=== PATIENT | male | born 1965 | race Caucasian/White ===

== ENCOUNTER 2021-07-05 14:20 | Outpatient (REF) | payer OTHER, SELFPAY ==
[2021-07-05 15:20] LABS: Appearance Urine CLEAR; Color Urine YELLOW; Glucose Urine UA NEG (NEG); Leukocyte Esterase Urine NEG (NEG); Nitrite Urine NEG (NEG); PH 5.5 (5.0-8.0); Specific Gravity - Urine 1.025 (1.005-1.025); UACC Culture Trigger NO; Urine Blood TRACE (NEG); Urine Ketones NEG (NEG); Urine Protein NEG (NEG-TRACE)
[2021-07-05 15:31] LABS: INTERNATIONAL NORM RATIO 3.1 (0.9-1.1); Prothrombin Time 36.6 SEC (9.9-13.0)
[2021-07-05 15:35] LABS: RBC Urine 0 /HPF (0); Squamous Epithelial Cell Urine TRACE /LPF; WBC Urine 0 /HPF (0-4)
== END 2021-07-05 14:21 | disposition home or self-care (01) ==
LOC: HO.LAB 14:20
PROVIDERS: PCP Internal Medicine; Visit Provider Internal Medicine
DX: Z79.01 Long term (current) use of anticoagulants (principal)
CPT/HCPCS: 36415; 81001; 85610

== ENCOUNTER → 2021-07-19 10:22 | Outpatient (BNVA) | payer OTHER, SELFPAY | PROVIDERS: PCP Internal Medicine; Visit Provider Internal Medicine | DX: Z95.2 Presence of prosthetic heart valve (principal); Z51.81 Encounter for therapeutic drug level monitoring; Z79.01 Long term (current) use of anticoagulants | CPT/HCPCS: 85610; 99202 ==

== ENCOUNTER → 2021-07-26 13:21 | Outpatient (BNVA) | payer OTHER, SELFPAY | PROVIDERS: PCP Internal Medicine; Visit Provider Internal Medicine | DX: Z95.2 Presence of prosthetic heart valve (principal); Z79.01 Long term (current) use of anticoagulants; Z51.81 Encounter for therapeutic drug level monitoring | CPT/HCPCS: 85610; 99211 ==

== ENCOUNTER → 2021-08-23 13:20 | Outpatient (BNVA) | payer OTHER, SELFPAY | PROVIDERS: PCP Internal Medicine; Visit Provider Internal Medicine | DX: Z95.2 Presence of prosthetic heart valve (principal); Z79.01 Long term (current) use of anticoagulants; Z51.81 Encounter for therapeutic drug level monitoring | CPT/HCPCS: 85610; 99211 ==

== ENCOUNTER → 2021-09-18 16:07 | Outpatient (BNVA) | payer OTHER, SELFPAY | PROVIDERS: PCP Internal Medicine; Visit Provider Internal Medicine | DX: Z95.2 Presence of prosthetic heart valve (principal); Z79.01 Long term (current) use of anticoagulants; Z51.81 Encounter for therapeutic drug level monitoring | CPT/HCPCS: 85610; 99211 ==

== ENCOUNTER → 2021-10-25 08:43 | Outpatient (BNVA) | payer OTHER, SELFPAY | PROVIDERS: PCP Internal Medicine; Visit Provider Internal Medicine | DX: Z95.2 Presence of prosthetic heart valve (principal); Z51.81 Encounter for therapeutic drug level monitoring; Z79.01 Long term (current) use of anticoagulants | CPT/HCPCS: 85610; 99211 ==

== ENCOUNTER → 2021-11-27 13:32 | Outpatient (BNVA) | payer OTHER, SELFPAY | PROVIDERS: PCP Internal Medicine; Visit Provider Internal Medicine | DX: Z95.2 Presence of prosthetic heart valve (principal); Z51.81 Encounter for therapeutic drug level monitoring; Z79.01 Long term (current) use of anticoagulants | CPT/HCPCS: 85610; 99211 ==

== ENCOUNTER → 2021-12-10 11:34 | Outpatient (BNVA) | payer OTHER, SELFPAY | PROVIDERS: PCP Internal Medicine; Visit Provider Internal Medicine | DX: Z95.2 Presence of prosthetic heart valve (principal); Z51.81 Encounter for therapeutic drug level monitoring; Z79.01 Long term (current) use of anticoagulants | CPT/HCPCS: 85610; 99211 ==

== ENCOUNTER → 2021-12-31 13:35 | Outpatient (BNVA) | payer OTHER, SELFPAY | PROVIDERS: PCP Internal Medicine; Visit Provider Internal Medicine | DX: Z95.2 Presence of prosthetic heart valve (principal); Z51.81 Encounter for therapeutic drug level monitoring; Z79.01 Long term (current) use of anticoagulants | CPT/HCPCS: 85610; 99211 ==

== ENCOUNTER → 2022-01-07 11:13 | Outpatient (BNVA) | payer OTHER, SELFPAY | PROVIDERS: PCP Internal Medicine; Visit Provider Internal Medicine | DX: Z95.2 Presence of prosthetic heart valve (principal); Z51.81 Encounter for therapeutic drug level monitoring; Z79.01 Long term (current) use of anticoagulants | CPT/HCPCS: 85610; 99211 ==

== ENCOUNTER 2022-01-16 06:30 | Outpatient (REF) | payer OTHER, SELFPAY ==
--- NOTE | ~2022-01-16 | XR_ITS ---
EXAMINATION: XR CHEST CLINICAL INFORMATION: Symptoms and signs involving the circulatory system. COMPARISON: None TECHNIQUE: 2 views of the chest were obtained. FINDINGS: No significant abnormality is noted involving the heart, lungs, mediastinum, bony thorax or soft tissues. Multilevel sternotomy wires are intact. XR/XR chest 2V IMPRESSION: No acute cardiopulmonary process.
== END 2022-01-16 06:31 | disposition home or self-care (01) ==
LOC: HO.XRAY 06:30
PROVIDERS: PCP Internal Medicine; Visit Provider Internal Medicine
DX: R09.89 Other specified symptoms and signs involving the circulatory and respiratory systems (principal)
CPT/HCPCS: 71046

== ENCOUNTER → 2022-02-01 14:09 | Outpatient (BNVA) | payer OTHER, SELFPAY | PROVIDERS: PCP Internal Medicine; Visit Provider Internal Medicine | DX: Z95.2 Presence of prosthetic heart valve (principal); Z79.01 Long term (current) use of anticoagulants; Z51.81 Encounter for therapeutic drug level monitoring | CPT/HCPCS: 85610; 99211 ==

== ENCOUNTER → 2022-03-04 08:44 | Outpatient (BNVA) | payer OTHER, SELFPAY | PROVIDERS: PCP Internal Medicine; Visit Provider Internal Medicine | DX: Z95.2 Presence of prosthetic heart valve (principal); Z51.81 Encounter for therapeutic drug level monitoring; Z79.01 Long term (current) use of anticoagulants | CPT/HCPCS: 85610; 99211 ==

== ENCOUNTER → 2022-04-01 14:18 | Outpatient (BNVA) | payer OTHER, SELFPAY | PROVIDERS: PCP Internal Medicine; Visit Provider Internal Medicine | DX: Z95.2 Presence of prosthetic heart valve (principal); Z79.01 Long term (current) use of anticoagulants; Z51.81 Encounter for therapeutic drug level monitoring | CPT/HCPCS: 85610; 99211 ==

== ENCOUNTER 2022-04-20 07:28 | Outpatient (REF) | payer OTHER, SELFPAY ==
[2022-04-20 07:50] LABS: MANUAL DIFF FLAG NO
[2022-04-20 08:34] LABS: Basophils Absolute Auto 0.1 X10*3/uL (0.0-0.2); Basophils Percent Auto 1.1 % (0-2); Eosinophils Absolute Auto 0.1 X10*3/uL (0.0-0.4); Eosinophils Percent Auto 1.1 % (0-4); Hematocrit 43.5 % (42.0-52.0); Hemoglobin 14.9 g/dl (14.0-18.0); Imm Gran Abs Auto 0.01 X10*3/uL (0.00-0.03); Imm Gran Pct Auto 0.2 % (0.0-0.4); Lymphocytes Absolute Auto 1.4 X10*3/uL (1.2-4.9); Lymphocytes Percent Auto 31.4 % (20-40); Mean Corpuscular HGB Conc 34.3 g/dl (31.0-36.0); Mean Corpuscular Hemoglobin 29.6 pg (27.0-33.0); Mean Corpuscular Volume 86.5 fL (80.0-98.0); Mean Platelet Volume 10.9 fL (9.4-12.4); Monocytes Absolute Auto 0.4 X10*3/uL (0.1-1.2); Monocytes Percent Auto 9.2 % (2-11); Neutrophils Absolute Auto 2.6 x10*3/uL (2.0-8.3); Platelet Count 181 X10*3/uL (160-400); Red Blood Count 5.03 X10*6/uL (4.60-5.80); Red Cell Distribution Width 13.1 % (11.0-16.0); White Blood Count 4.6 X10*3/uL (4.8-10.8)
[2022-04-20 08:37] LABS: Appearance Urine Clear; Color Urine Yellow; Glucose Urine UA Negative (Negative); Leukocyte Esterase Urine Negative (Negative); Nitrite Urine Negative (Negative); PH 5.5 (5.0-9.0); Specific Gravity - Urine 1.025 (1.005-1.025); Urine Blood Negative (Negative); Urine Ketones Negative (Negative); Urine Protein Negative (Neg-Trace)
[2022-04-20 09:11] LABS: Alanine Aminotransferase 24 U/L (0-40); Albumin Level 4.2 g/dL (3.5-5.0); Alkaline Phosphatase 66 U/L (39-117); Anion Gap 12 (12-20); Aspartate Amino Transferase 23 U/L (5-37); Bilirubin Total 0.8 mg/dL (0.0-1.0); Blood Urea Nitrogen 19 mg/dL (9-16); Calcium 9.6 mg/dL (8.4-10.2); Carbon Dioxide 27 mmol/L (22-29); Chloride 106 mmol/L (96-108); Cholesterol 231 mg/dL; Estimated Glomerular Filt Rate > 60; Glucose Fasting 97 mg/dL (60-99); HDL Cholesterol 39 mg/dL; LDL Cholesterol Calculated 170 mg/dl; Potassium 4.5 mmol/L (3.3-5.1); Sodium 140 mmol/L (135-145); Total Protein 6.8 g/dL (6.5-8.0); Triglycerides 111 mg/dL
[2022-04-20 09:31] LABS: Prostate Specific Antigen 0.64 ng/mL (<0.05-4.0); TSH reflex Free T4 1.56 uIU/mL (0.32-4.0); Vitamin D 25-OH Total 34.4 ng/mL (>30)
== END 2022-04-20 07:29 | disposition home or self-care (01) ==
LOC: HO.LAB 07:28
PROVIDERS: Visit Provider Internal Medicine
DX: Z00.00 Encounter for general adult medical examination without abnormal findings (principal); Z12.5 Encounter for screening for malignant neoplasm of prostate; R30.0 Dysuria; E55.9 Vitamin D deficiency, unspecified; N40.0 Benign prostatic hyperplasia without lower urinary tract symptoms; I42.9 Cardiomyopathy, unspecified
CPT/HCPCS: 36415; 80053; 80061; 81003; 82306; 84153; 84443; 85025

== ENCOUNTER → 2022-04-30 13:06 | Outpatient (BNVA) | payer OTHER, SELFPAY | PROVIDERS: PCP Internal Medicine; Visit Provider Internal Medicine | DX: Z95.2 Presence of prosthetic heart valve (principal); Z51.81 Encounter for therapeutic drug level monitoring; Z79.01 Long term (current) use of anticoagulants | CPT/HCPCS: 85610; 99211 ==

== ENCOUNTER → 2022-07-01 13:46 | Outpatient (BNVA) | payer OTHER, SELFPAY | PROVIDERS: PCP Internal Medicine; Visit Provider Internal Medicine | DX: Z95.2 Presence of prosthetic heart valve (principal); Z51.81 Encounter for therapeutic drug level monitoring; Z79.01 Long term (current) use of anticoagulants | CPT/HCPCS: 85610; 99211 ==

== ENCOUNTER → 2022-07-17 13:03 | Outpatient (BNVA) | payer OTHER, SELFPAY | PROVIDERS: PCP Internal Medicine; Visit Provider Internal Medicine | DX: Z95.2 Presence of prosthetic heart valve (principal); Z51.81 Encounter for therapeutic drug level monitoring; Z79.01 Long term (current) use of anticoagulants | CPT/HCPCS: 85610; 99211 ==

== ENCOUNTER → 2022-08-13 15:31 | Outpatient (BNVA) | payer OTHER, SELFPAY | PROVIDERS: PCP Internal Medicine; Visit Provider Internal Medicine | DX: Z51.81 Encounter for therapeutic drug level monitoring (principal); Z95.2 Presence of prosthetic heart valve; Z79.01 Long term (current) use of anticoagulants | CPT/HCPCS: 85610; 99211 ==

== ENCOUNTER → 2022-08-16 13:26 | Outpatient (BNVA) | payer OTHER, SELFPAY | PROVIDERS: PCP Internal Medicine; Visit Provider Internal Medicine | DX: Z51.81 Encounter for therapeutic drug level monitoring (principal); Z79.01 Long term (current) use of anticoagulants; Z95.2 Presence of prosthetic heart valve | CPT/HCPCS: 85610; 99211 ==

== ENCOUNTER → 2022-09-02 14:59 | Outpatient (BNVA) | payer OTHER, SELFPAY | PROVIDERS: PCP Internal Medicine; Visit Provider Internal Medicine | DX: Z95.2 Presence of prosthetic heart valve (principal); Z51.81 Encounter for therapeutic drug level monitoring; Z79.01 Long term (current) use of anticoagulants | CPT/HCPCS: 85610; 99211 ==

== ENCOUNTER → 2022-10-02 13:04 | Outpatient (BNVA) | payer OTHER, SELFPAY | PROVIDERS: PCP Internal Medicine; Visit Provider Internal Medicine | DX: Z95.2 Presence of prosthetic heart valve (principal); Z51.81 Encounter for therapeutic drug level monitoring; Z79.01 Long term (current) use of anticoagulants | CPT/HCPCS: 85610; 99211 ==

== ENCOUNTER → 2022-10-16 15:37 | Outpatient (BNVA) | payer OTHER, SELFPAY | PROVIDERS: PCP Internal Medicine; Visit Provider Internal Medicine | DX: Z51.81 Encounter for therapeutic drug level monitoring (principal); Z79.01 Long term (current) use of anticoagulants; Z95.2 Presence of prosthetic heart valve | CPT/HCPCS: 85610; 99211 ==

== ENCOUNTER 2022-11-13 13:04 | Outpatient (AMB) | payer OTHER, SELFPAY ==
--- NOTE | 2022-11-13 13:11 | MHC.OFFVISCO ---
Intake Intake Visit Reasons: Anticoagulation Allergies No Known Drug Allergies Allergy (Unknown, Verified 11/13/22 13:05) Unknown Medication List - Last Reconciled 11/13/22 by Yenny Cardenas RN amoxicillin 2,000 mg PO ONCE bisacodyl (Laxative (bisacodyl)) 20 mg PO ONCE xsyvsddmlp-aujefgmadmqmq-uclp 50-325-40 mg 1 cap PO Q6H PRN cholecalciferol (vitamin D3) 50 mcg PO DAILY lisinopril 2.5 mg PO DAILY metoprolol succinate ER 50 mg PO DAILY metronidazole 0.75% appl topical BID peg 3350-electrolytes 236-22.74-6.74 -5.86 gram (GaviLyte-G) 4,000 mL PO DIRECTED sumatriptan succinate 50 mg PO Q2-4H PRN warfarin 5 mg See Protocol PO DAILY Nursing Note INR: 3.2 in therapeutic range Medications and supplements reviewed No changes in health, diet, medications, or supplements, Denies any signs and symptoms of bleeding or bruising or clotting. 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 Illness/Depression: No Coding Level of Care Code Est Patient Level 1 Diagnoses Current use of anticoagulant therapy Z79.01 Assessment & Plan Assessment & Plan (1) Current use of anticoagulant therapy: Code(s): Z79.01 - halfway (current) use of anticoagulants Category: Medical
[2022-11-13 13:12] LABS: Prothrombin Time Whole Bld POC 38.9 sec (11.1-13.5); ~PT, ~INR - Anti Coag Clinic 3.2 (0.9-1.1)
== END 2022-11-13 13:20 | disposition home or self-care (01) ==
LOC: HO.ACS 13:04
PROVIDERS: PCP Internal Medicine; Visit Provider Internal Medicine
DX: Z79.01 Long term (current) use of anticoagulants (principal)

== ENCOUNTER → 2022-11-13 13:04 | Outpatient (BNVA) | payer OTHER, SELFPAY | PROVIDERS: PCP Internal Medicine; Visit Provider Internal Medicine | DX: Z51.81 Encounter for therapeutic drug level monitoring (principal); Z79.01 Long term (current) use of anticoagulants; Z95.2 Presence of prosthetic heart valve | CPT/HCPCS: 85610; 99211 ==

== ENCOUNTER 2022-12-26 13:25 | Outpatient (AMB) | payer OTHER, SELFPAY ==
[2022-12-26 13:55] LABS: Prothrombin Time Whole Bld POC 29.9 sec (11.1-13.5); ~PT, ~INR - Anti Coag Clinic 2.5 (0.9-1.1)
--- NOTE | 2022-12-26 13:59 | MHC.OFFVISCO ---
Intake Intake Visit Reasons: Anticoagulation Allergies No Known Drug Allergies Allergy (Unknown, Verified 12/26/22 13:46) Unknown Medication List - Last Reconciled 12/26/22 by Virginia Man RN amoxicillin 2,000 mg PO ONCE fhvupekdnm-mnhyjggezqlxk-hesi 50-325-40 mg 1 cap PO Q6H PRN cholecalciferol (vitamin D3) 50 mcg PO DAILY lisinopril 2.5 mg PO DAILY metoprolol succinate ER 50 mg PO DAILY metronidazole 0.75% appl topical BID sumatriptan succinate 50 mg PO Q2-4H PRN warfarin 5 mg See Protocol PO DAILY Nursing Note Amb to [facility] feeling well, sts was ill last week, fever, congested, negative for covid, feeling better now, residual congestion Medications and supplements reviewed No other changes in health, diet, medications, or supplements Denies any unusual signs and symptoms of bruising, bleeding Denies any new Chest pain, SOB, or clotting INR: 2.5 just in therapeutic range (2.5-3.5) Nutritional guidance given: balance greens and reds in diet Dose: continue usual dosing;5mg daily F/U INR: 4 weeks Patient verbalizes understanding of instructions given with accurate read back/ teach back of dosing Anti-Coag Initial Assessment Social Hx Patient Tobacco Use Status: Never used Tobacco alcohol intake: current Alcohol intake frequency: does not drink Cardiovascular Hx: Cardiomyopathy (mild per pt) and Other (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
== END 2022-12-26 15:03 | disposition home or self-care (01) ==
LOC: HO.ACS 13:25
PROVIDERS: PCP Internal Medicine; Visit Provider Internal Medicine
DX: Z79.01 Long term (current) use of anticoagulants (principal)

== ENCOUNTER → 2022-12-26 13:25 | Outpatient (BNVA) | payer OTHER, SELFPAY | PROVIDERS: PCP Internal Medicine; Visit Provider Internal Medicine | DX: Z95.2 Presence of prosthetic heart valve (principal); Z51.81 Encounter for therapeutic drug level monitoring; Z79.01 Long term (current) use of anticoagulants | CPT/HCPCS: 85610; 99211 ==

== ENCOUNTER 2023-01-23 13:06 | Outpatient (AMB) | payer OTHER, SELFPAY ==
[2023-01-23 13:13] LABS: ~PT, ~INR - Anti Coag Clinic 3.4 (0.9-1.1)
--- NOTE | 2023-01-23 13:18 | MHC.OFFVISCO ---
Intake Intake Visit Reasons: Anticoagulation Allergies No Known Drug Allergies Allergy (Unknown, Verified 01/23/23 13:06) Unknown Medication List - Last Reconciled 01/23/23 by Yenny Cardenas RN amoxicillin 2,000 mg PO ONCE kjzlxzenaa-pjcypcoikmhtv-eibh 50-325-40 mg 1 cap PO Q6H PRN cholecalciferol (vitamin D3) 50 mcg PO DAILY lisinopril 2.5 mg PO DAILY metoprolol succinate ER 50 mg PO DAILY metronidazole 0.75% appl topical BID sumatriptan succinate 50 mg PO Q2-4H PRN warfarin 5 mg See Protocol PO DAILY Nursing Note INR: 3.4 in therapeutic range Medications and supplements reviewed No changes in health, diet, medications, or supplements, Denies any signs and symptoms of bleeding or bruising or clotting. 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 Illness/Depression: No Coding Level of Care Code Est Patient Level 1 Diagnoses Current use of anticoagulant therapy Z79.01 Assessment & Plan Assessment & Plan (1) Current use of anticoagulant therapy: Code(s): Z79.01 - alf (current) use of anticoagulants Category: Medical
== END 2023-01-23 13:21 | disposition home or self-care (01) ==
LOC: HO.ACS 13:06
PROVIDERS: PCP Internal Medicine; Visit Provider Internal Medicine
DX: Z79.01 Long term (current) use of anticoagulants (principal)

== ENCOUNTER → 2023-01-23 13:06 | Outpatient (BNVA) | payer OTHER, SELFPAY | PROVIDERS: PCP Internal Medicine; Visit Provider Internal Medicine | DX: Z95.2 Presence of prosthetic heart valve (principal); Z51.81 Encounter for therapeutic drug level monitoring; Z79.01 Long term (current) use of anticoagulants | CPT/HCPCS: 85610; 99211 ==

== ENCOUNTER 2023-02-10 07:02 | Outpatient (REF) | payer OTHER, SELFPAY ==
[2023-02-10 07:44] LABS: Alanine Aminotransferase 19 U/L (0-40); Albumin Level 4.3 g/dL (3.5-5.0); Alkaline Phosphatase 57 U/L (39-117); Anion Gap 14 (12-20); Aspartate Amino Transferase 22 U/L (5-37); Bilirubin Total 0.7 mg/dL (0.0-1.0); Blood Urea Nitrogen 17 mg/dL (9-16); Calcium 9.3 mg/dL (8.4-10.2); Carbon Dioxide 22 mmol/L (22-29); Chloride 108 mmol/L (96-108); Cholesterol 218 mg/dL (<200); Estimated Glomerular Filt Rate > 60; Glucose Fasting 108 mg/dL (60-99); HDL Cholesterol 41 mg/dL (>40); LDL Cholesterol Calculated 158 mg/dL (<100); Sodium 140 mmol/L (135-145); Triglycerides 98 mg/dL (<150)
== END 2023-02-10 07:03 | disposition home or self-care (01) ==
LOC: HO.LAB 07:02
PROVIDERS: PCP Internal Medicine; Visit Provider Internal Medicine
DX: E78.00 Pure hypercholesterolemia, unspecified (principal)
CPT/HCPCS: 36415; 80053; 80061

== ENCOUNTER 2023-02-18 12:59 | Outpatient (AMB) | payer OTHER, SELFPAY ==
--- NOTE | 2023-02-18 13:09 | MHC.OFFVISCO ---
Intake Intake Visit Reasons: Anticoagulation Allergies No Known Drug Allergies Allergy (Unknown, Verified 02/18/23 13:04) Unknown Medication List - Last Reconciled 02/18/23 by Lenora Rae RN amoxicillin 2,000 mg PO ONCE gdonmybdnc-insqmlhevtdej-wotp 50-325-40 mg 1 cap PO Q6H PRN cholecalciferol (vitamin D3) 50 mcg PO DAILY lisinopril 2.5 mg PO DAILY metoprolol succinate ER 50 mg PO DAILY metronidazole 0.75% appl topical BID sumatriptan succinate 50 mg PO Q2-4H PRN warfarin 5 mg See Protocol PO DAILY Nursing Note INR: 2.5- in therapeutic range of 2.5-3.5 Medications and supplements reviewed- no changes No changes in health, diet, medications, or supplements, Denies any signs and symptoms of bleeding or bruising or clotting. 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 Illness/Depression: No Coding Level of Care Code Est Patient Level 1 Diagnoses Current use of anticoagulant therapy Z79.01 Assessment & Plan Assessment & Plan (1) Current use of anticoagulant therapy: Code(s): Z79.01 - group home (current) use of anticoagulants Category: Medical
[2023-02-18 13:10] LABS: ~PT, ~INR - Anti Coag Clinic 2.5 (0.9-1.1)
== END 2023-02-18 13:14 | disposition home or self-care (01) ==
LOC: HO.ACS 12:59
PROVIDERS: PCP Internal Medicine; Visit Provider Internal Medicine
DX: Z79.01 Long term (current) use of anticoagulants (principal)

== ENCOUNTER → 2023-02-18 12:59 | Outpatient (BNVA) | payer OTHER, SELFPAY | PROVIDERS: PCP Internal Medicine; Visit Provider Internal Medicine | DX: Z95.2 Presence of prosthetic heart valve (principal); Z51.81 Encounter for therapeutic drug level monitoring; Z79.01 Long term (current) use of anticoagulants | CPT/HCPCS: 85610; 99211 ==

== ENCOUNTER 2023-03-18 13:02 | Outpatient (AMB) | payer OTHER, SELFPAY ==
--- NOTE | 2023-03-18 13:09 | MHC.OFFVISCO ---
Intake Intake Visit Reasons: Anticoagulation Allergies No Known Drug Allergies Allergy (Unknown, Verified 03/18/23 13:15) Unknown Medication List - Last Reconciled 03/18/23 by Lenora Rae RN amoxicillin 2,000 mg PO ONCE awqmevmmwv-vpunhtsvxlbdy-gqsh 50-325-40 mg 1 cap PO Q6H PRN cholecalciferol (vitamin D3) 50 mcg PO DAILY lisinopril 2.5 mg PO DAILY metoprolol succinate ER 50 mg PO DAILY metronidazole 0.75% appl topical BID sumatriptan succinate 50 mg PO Q2-4H PRN warfarin 5 mg See Protocol PO DAILY Nursing Note INR: 2.5- in therapeutic range of 2.5- 3.5 Medications and supplements reviewed- no changes No changes in health, diet, medications, or supplements, Denies any signs and symptoms of bleeding or bruising or clotting. 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 Illness/Depression: No Coding Level of Care Code Est Patient Level 1 Diagnoses Current use of anticoagulant therapy Z79.01 Assessment & Plan Assessment & Plan (1) Current use of anticoagulant therapy: Code(s): Z79.01 - group home (current) use of anticoagulants Category: Medical
[2023-03-18 13:10] LABS: Prothrombin Time Whole Bld POC 29.4 sec (11.1-13.5); ~PT, ~INR - Anti Coag Clinic 2.5 (0.9-1.1)
== END 2023-03-18 13:16 | disposition home or self-care (01) ==
LOC: HO.ACS 13:02
PROVIDERS: PCP Internal Medicine; Visit Provider Internal Medicine
DX: Z79.01 Long term (current) use of anticoagulants (principal)

== ENCOUNTER → 2023-03-18 13:02 | Outpatient (BNVA) | payer OTHER, SELFPAY | PROVIDERS: PCP Internal Medicine; Visit Provider Internal Medicine | DX: Z95.2 Presence of prosthetic heart valve (principal); Z51.81 Encounter for therapeutic drug level monitoring; Z79.01 Long term (current) use of anticoagulants | CPT/HCPCS: 85610; 99211 ==

== ENCOUNTER 2023-04-04 13:03 | Outpatient (AMB) | payer OTHER, SELFPAY ==
--- NOTE | 2023-04-04 13:26 | MHC.OFFVISCO ---
Intake Intake Visit Reasons: Anticoagulation Allergies No Known Drug Allergies Allergy (Unknown, Verified 04/04/23 13:17) Unknown Medication List - Last Reconciled 04/04/23 by Lenora Rae RN amoxicillin 2,000 mg PO ONCE cdgdfwccjd-sdtjarzdeguuw-xlwg 50-325-40 mg 1 cap PO Q6H PRN cholecalciferol (vitamin D3) 50 mcg PO DAILY lisinopril 2.5 mg PO DAILY metoprolol succinate ER 50 mg PO DAILY metronidazole 0.75% appl topical BID sumatriptan succinate 50 mg PO Q2-4H PRN warfarin 5 mg See Protocol PO DAILY Nursing Note INR: 2.7- in therapeutic range of 2.5-3.5 Medications and supplements reviewed- no changes No changes in health, diet, medications, or supplements, Denies any signs and symptoms of bleeding or bruising or clotting. 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 Illness/Depression: No Coding Level of Care Code Est Patient Level 1 Diagnoses Current use of anticoagulant therapy Z79.01 Results AMB INR Fingerstick AMB INR Fingerstick 2.7 Last Edit by Lenora Rae RN on 04/04/23 13:28 Assessment & Plan Assessment & Plan (1) Current use of anticoagulant therapy: Code(s): Z79.01 - [facility] (current) use of anticoagulants Category: Medical
[2023-04-04 13:28] LABS: Prothrombin Time Whole Bld POC 32.9 sec (11.1-13.5); ~PT, ~INR - Anti Coag Clinic 2.7 (0.9-1.1)
== END 2023-04-04 13:46 | disposition home or self-care (01) ==
LOC: HO.ACS 13:03
PROVIDERS: PCP Internal Medicine; Visit Provider Internal Medicine
DX: Z79.01 Long term (current) use of anticoagulants (principal)

== ENCOUNTER → 2023-04-04 13:03 | Outpatient (BNVA) | payer OTHER, SELFPAY | PROVIDERS: PCP Internal Medicine; Visit Provider Internal Medicine | DX: Z95.2 Presence of prosthetic heart valve (principal); Z51.81 Encounter for therapeutic drug level monitoring; Z79.01 Long term (current) use of anticoagulants | CPT/HCPCS: 85610; 99211 ==

== ENCOUNTER 2023-04-23 14:46 | Outpatient (AMB) | payer BC, SELFPAY ==
--- NOTE | 2023-04-23 15:03 | MHC.OFFVISCO ---
Intake Intake Visit Reasons: Anticoagulation Allergies No Known Drug Allergies Allergy (Unknown, Verified 04/23/23 14:58) Unknown Medication List - Last Reconciled 04/23/23 by Lenora Rae RN amoxicillin 2,000 mg PO ONCE cdmwdgszts-gcnjiwpbmlmja-bonw 50-325-40 mg 1 cap PO Q6H PRN cholecalciferol (vitamin D3) 50 mcg PO DAILY metoprolol succinate ER 50 mg PO DAILY metronidazole 0.75% appl topical BID sumatriptan succinate 50 mg PO Q2-4H PRN warfarin 5 mg See Protocol PO DAILY Nursing Note INR: 3.0- in therapeutic range of 2.5-3.5 Medications and supplements reviewed- lisinopril d/c, pt now taking valsartan- no interaction with warfarin per [facility] No changes in health, diet, medications, or supplements, Denies any signs and symptoms of bleeding or bruising or clotting. 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
[2023-04-23 15:04] LABS: Prothrombin Time Whole Bld POC 35.7 sec (11.1-13.5)
== END 2023-04-23 15:27 | disposition home or self-care (01) ==
LOC: HO.ACS 14:46
PROVIDERS: PCP Internal Medicine; Visit Provider Internal Medicine
DX: Z79.01 Long term (current) use of anticoagulants (principal)

== ENCOUNTER → 2023-04-23 14:46 | Outpatient (BNVA) | payer BC, SELFPAY | PROVIDERS: PCP Internal Medicine; Visit Provider Internal Medicine | DX: Z95.2 Presence of prosthetic heart valve (principal); Z51.81 Encounter for therapeutic drug level monitoring; Z79.01 Long term (current) use of anticoagulants | CPT/HCPCS: 85610; 99211 ==

== ENCOUNTER 2023-04-23 15:14 | Outpatient (AMB) | payer BC, SELFPAY ==
[2023-04-23 15:17] VITALS: BP 116/82; PULSE 79; O2SAT 97; BMI 24.8
--- NOTE | 2023-04-23 15:17 | A.OFFPC_ITS ---
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: No Accompanied by: Self / Same As Patient Allergies No Known Drug Allergies Allergy (Unknown, Verified 04/23/23 16:56) Unknown Medication List - Last Reconciled 04/23/23 by Feliberto Garcia MD amoxicillin 2,000 mg PO ONCE qppisoxluk-mdytnjmlcnqai-euxi 50-325-40 mg 1 cap PO Q6H PRN cholecalciferol (vitamin D3) 50 mcg PO DAILY metoprolol succinate ER 50 mg PO DAILY metronidazole 0.75% appl topical BID sumatriptan succinate 50 mg PO Q2-4H PRN valsartan 40 mg PO DAILY warfarin 5 mg See Protocol PO DAILY Tobacco use date assessed: 04/23/23 Dental Screening Dental Screen Date: 04/23/23 Did you have a dental visit in the last 12 months?: Yes Did you have a dental problem in the last 6 months where you did not have access to dental care?: No Was dental information given to patient?: Patient has dentist HPI pe HPI Details Patient comes in today for his annual physical examination States that he feels okay He denies any headaches or dizziness Denies any chest pains, no SOB No nausea/vomiting, no abdominal pain No change in bowel habits noted He denies any acute urinary symptoms He had some follow up labs last done back in January 2023 Had his repeat colonoscopy done on 08/07/[address] Lisa monet at [facility] - was recommended to have his next colonoscopy done in 7 years [facility] Medical History Pure hypercholesterolemia History of scarlet fever Cardiomyopathy Vitamin D deficiency Migraine Surgical History Hx of prosthetic aortic valve replacement (~01/10/98) Family History Mother No problems noted. Father No problems noted. 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 1. Little interest or pleasure in doing things: not at all 2. Feeling down, depressed, or hopeless: not at all 3. Trouble falling or staying asleep, or sleeping too much: not at all 4. Feeling tired or having little energy: not at all 5. Poor appetite or overeating: not at all 6. Feeling bad about yourself - or that you are a failure or have let yourself or your family down: not at all 7. Trouble concentrating on things, such as reading the newspaper or watching television: not at all 8. Moving or speaking so slowly that other people could have noticed. Or the opposite - being so fidgety or restless that you have been moving around a lot more than usual: not at all 9. Thoughts that you would be better off or of hurting yourself in some way: not at all Total score: 0 Depression Screening Interpretation: Negative Depression Screening Done: Yes 28576 - PHQ-9 Billing: Yes Source: Developed by Drs. Christpoh Cohn, Ashlyn Higgins, Jeremy Hernandez and colleagues, with an educational gail from Outcome Referrals. Thrive Questionnaire Date Thrive assessed: 04/23/23 I am a: Patient What is your living situation today?: I have a steady place to live Within the past 12 months, did the food you bought not last and you didn't have the money to get more?: Never true Within the past 12 months, did you worry whether your food would run out before you got money to buy more?: Never true Do you have trouble paying for medicines?: No Do you have trouble getting transportation to medical appointments?: No Do you have trouble paying your heating and electricity bill?: No Do you have trouble taking care of your child, family member or friend?: No Do you have trouble with day-to-day activities such as bathing, preparing meals, shopping, managing finances, etc.?: No Are you currently unemployed and looking for a job?: No Are you interested in more education?: No Currently or been in a relationship where the following occur: no concerns reported AUDIT C Alcohol Use Questionnaire (AUDIT-C) 1. How often do you have a drink containing alcohol?: Never 2. How many drinks containing alcohol do you have on a typical day when you are drinking?: 1 or 2 (0) 3. How often do you have six or more drinks on one occasion?: Never Total Score: 0 Score Reviewed/Action Taken: Yes THADDEUS-7 AMB Questionnaire THADDEUS-7 Date THADDEUS - 7 assessed: 04/23/23 Feeling nervous, anxious, or on edge: 0 = Not at all Not being able to stop or control worryin = Not at all Worrying too much about different things: 0 = Not at all Trouble relaxin = Not at all Being so restless that it is hard to sit still: 0 = Not at all Becoming easily annoyed or irritable: 0 = Not at all Feeling afraid as if something awful might happen: 0 = Not at all Total THADDEUS-7 score (0-4 normal; 5-9 mild; 10-14 moderate; 15-21 severe): 0 Source: Developed by Drs. Christoph Cohn, Ashlyn Higgins, Jeremy Hernandez and colleagues, with an educational gail from Outcome Referrals. Review of Systems Const Denies chills, Denies fatigue, Denies fever(s), Denies headache(s), Denies malaise and Denies weakness Eyes Denies blurry vision, Denies change in vision, Denies irritation and Denies itchy eyes ENT Denies dysphagia, Denies dizziness, Denies otalgia, Denies headache(s), Denies nasal congestion, Denies neck pain, Denies odynophagia and Denies sore throat Card Denies chest pain, Denies rapid heart rate, Denies irregular heart rhythm, Denies palpitations and Denies dyspnea Resp Denies chest congestion, Denies cough, Denies dyspnea and Denies wheezing GI Denies abdominal pain, Denies bloating, Denies constipation, Denies dysphagia, Denies heartburn, Denies diarrhea, Denies nausea, Denies odynophagia and Denies vomiting Denies hematuria, Denies difficulty urinating, Denies dysuria, Denies urinary frequency and Denies urinary urgency Musc Denies back pain, Denies arthralgias, Denies joint swelling, Denies muscle weakness and Denies neck pain Skin/Breast Denies change in pigmentation, Denies lesions, Denies rash and Denies unusual bruising Neuro Denies dizziness, Denies headache(s), Denies paresthesias and Denies weakness Endo Denies fatigue and Denies palpitations Aller/Immun Denies itchy eyes and Denies wheezing Physical exam (Primary Care) Vital Signs: Last Vital Signs Pulse 79 04/23/23 15:17 BP 116/82 04/23/23 15:17 Pulse Ox 97 04/23/23 15:17 Oxygen Delivery Method Room Air 04/23/23 15:17 BMI result Body Mass Index 24.8 Tobacco/Smoking Status: Tobacco use Status Tobacco use date assessed 04/23/23 04/23/23 15:18 Patient Tobacco Use Status Never used Tobacco 04/23/23 15:18 e-Cigarette/Vaping Use Never Used 04/23/23 15:18 PHQ-9: PHQ-9 Score PHQ-9: Total score 0 04/23/23 17:09 Depression Screening Interpretation: Negative Thrive Assessment: Date of Thrive Assessment Date Thrive assessed 04/23/23 04/23/23 15:18 Currently or been in a relationship where the following occur: no concerns repor rogelio Const General: no acute distress, alert and awake Orientation/consciousness: patient oriented x3 HENMT Head: Yes normocephalic and Yes atraumatic Ears: external ears normal, TM's normal bilaterally and EAC's normal General nose exam: No nasal discharge present Face and sinus: Yes normal facial exam and Yes sinuses nontender Teeth and gingiva: dentition normal Throat: Yes posterior oropharynx normal and Yes tonsils normal (no TP congestion) Eyes Eyelids: Yes eyelids normal Conjunctivae: conjunctivae normal Pupils: Equal, round and reactive pupils present EOM: EOMs intact bilaterally Neck Neck: Yes no lymphadenopathy and Yes supple Thyroid: Thyroid normal Resp Auscultation: clear to auscultation bilaterally, no rales and no wheezes Cardio Rate: regular rate Rhythm: regular rhythm Heart sounds: Clicking heart sound present ((+) metallic click over the 2nd heart sound) and no murmurs GI Palpation (GI): Soft to palpation, nontender and No hepatosplenomegaly present Auscultation: normal bowel sounds General: Yes no CVA tenderness Back/Spine/Pelvis Back: no CVA tenderness Thoracic/Lumbar Spine: thoracic and lumbar spine normal to inspection Skin Lesions: no lesions Rashes: no rashes Neuro General: patient oriented x3, moves all extremities, no focal motor deficits and CN's II-XI intact bilaterally Cranial nerves: Yes Equal, round and reactive pupils present Cognition (Neuro): normal cognition Gait exam (Neuro): Normal gait present Extrem General: Yes no clubbing, cyanosis or edema Results AMB INR Fingerstick AMB INR Fingerstick 3.0 Last Edit by Lenora Rae RN on 04/23/23 15:04 Results Reviewed Results Reviewed: Laboratory Tests 02/10/23 07:07 Sodium 140 Potassium 4.0 Creatinine 0.97 Estimated GFR > 60 Fasting Glucose 108 H Calcium 9.3 AST 22 ALT 19 Triglycerides 98 Cholesterol 218 H LDL Cholesterol, Calc 158 H HDL Cholesterol 41 Assessment and Plan Assessment & Plan (1) Annual physical exam: Code(s): Z00.00 - Encounter for general adult medical examination without abnormal findings Plan: Results of his labs done back in January 2023 reviewed and discussed with patient Will have him recheck his labs in 1 month Patient is up-to-date with his cancer screening(s) - is due for repeat colonoscopy in 2029 (2) Cardiomyopathy: Comment: sees cardiology (Dr. Muñoz) Code(s): I42.9 - Cardiomyopathy, unspecified Qualifiers: Cardiomyopathy type: unspecified Qualified Code(s): I42.9 - Cardiomyopathy, unspecified Plan: Patient has been asymptomatic from a cardiac standpoint Continue Lisinopril 2.5 mg QD and Metoprolol ER 50 mg QD Follow up with cardiology (Dr. Candelario Muñoz) as scheduled (3) Hx of prosthetic aortic valve replacement: Onset Date: ~01/10/[address]: [facility] valve - Dr. Grant - 1997 Code(s): Z95.2 - Presence of prosthetic heart valve Plan: Continue Coumadin 5 mg QD for lifelong anticoagulation - follow up with the coumadin clinic as scheduled for PT/INR monitoring Will need endocarditis prophylaxis with Abx prior to any invasive procedures (4) Pure hypercholesterolemia: Code(s): E78.00 - Pure hypercholesterolemia, unspecified Plan: Reinforced low cholesterol diet Patient is advised that his cholesterol numbers were still elevated on his labs done back in January 2023 although they have improved slightly from April 2022 Will have patient recheck his fasting lipids and labs in 1 month for follow up; is advised that if his numbers are still high, then we would recommend he start taking cholesterol-lowering medications but will leave that up to 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 Joe Carranza) Code(s): G43.909 - Migraine, unspecified, not intractable, without status migrainosus Qualifiers: Intractability: not intractable Migraine type: unspecified Status migrainosus presence: without status migrainosus Qualified Code(s): G43.909 - Migraine, unspecified, not intractable, without status migrainosus Plan: Stable Continue Fioricet 50-325-40 mg PRN and Sumatriptan 50 mg PRN as instructed Follow up with neurology (Dr. Joe Carranza) as scheduled (6) Vitamin D deficiency: Code(s): E55.9 - Vitamin D deficiency, unspecified Plan: Corrected - continue Vitamin D3 2000 units QD Plan Follow up in 6 months Orders: Orders Prostate Specific Antigen 1 Month N40.0 - Benign prostatic hyperplasia without lower urinary tract symptoms, Z00.00 - Encounter for general adult medical examination without abnormal findings Complete Blood Count Auto Diff 1 Month Z00.00 - Encounter for general adult medical examination without abnormal findings, I42.9 - Cardiomyopathy, unspecified Comprehensive [place]. Panel Fast 1 Month E78.00 - Pure hypercholesterolemia, unspecified, Z00.00 - Encounter for general adult medical examination without abnormal findings, I42.9 - Cardiomyopathy, unspecified Lipid Panel 1 Month E78.00 - Pure hypercholesterolemia, unspecified, Z00.00 - Encounter for general adult medical examination without abnormal findings, I42.9 - Cardiomyopathy, unspecified TSH reflex Free T4 1 Month E78.00 - Pure hypercholesterolemia, unspecified, Z00.00 - Encounter for general adult medical examination without abnormal findings, I42.9 - Cardiomyopathy, unspecified UA CC w/rflx Micro + Cult 1 Month R30.0 - Dysuria, Z00.00 - Encounter for general adult medical examination without abnormal findings Vitamin D 25-OH Total 1 Month E55.9 - Vitamin D deficiency, unspecified, Z00.00 - Encounter for general adult medical examination without abnormal findings Hemoglobin A1c 1 Month Z00.00 - Encounter for general adult medical examination without abnormal findings, R73.01 - Impaired fasting glucose B Type Natriuretic Peptide 1 Month Z00.00 - Encounter for general adult medical examination without abnormal findings, I42.9 - Cardiomyopathy, unspecified Coding Level of Care Code Est Pt Prev Care 40-64y(56433) Diagnoses Annual physical exam Z00.00 Cardiomyopathy, unspecified type I42.9 Cardiomyopathy type: unspecified Hx of prosthetic aortic valve replacement Z95.2 Pure hypercholesterolemia E78.00 Migraine without status migrainosus, not intractable, unspecified migraine type G43.909 Intractability: not intractable Migraine type: unspecified Status migrainosus presence: without status migrainosus Vitamin D deficiency E55.9
== END 2023-04-23 17:27 | disposition home or self-care (01) ==
PROVIDERS: PCP Internal Medicine; Visit Provider Internal Medicine
DX: Z00.00 Encounter for general adult medical examination without abnormal findings (principal); I42.9 Cardiomyopathy, unspecified; Z95.2 Presence of prosthetic heart valve; E78.00 Pure hypercholesterolemia, unspecified; G43.909 Migraine, unspecified, not intractable, without status migrainosus; E55.9 Vitamin D deficiency, unspecified
CPT/HCPCS: 99396

== ENCOUNTER 2023-05-20 13:06 | Outpatient (AMB) | payer BC, SELFPAY ==
--- NOTE | 2023-05-20 13:15 | MHC.OFFVISCO ---
Intake Intake Visit Reasons: Anticoagulation Allergies No Known Drug Allergies Allergy (Unknown, Verified 05/20/23 13:07) Unknown Medication List - Last Reconciled 05/20/23 by Virginia Smallwood RN amoxicillin 2,000 mg PO ONCE nypratumto-yvrbuczwzyktw-jezp 50-325-40 mg 1 cap PO Q6H PRN cholecalciferol (vitamin D3) 50 mcg PO DAILY metoprolol succinate ER 50 mg PO DAILY metronidazole 0.75% appl topical BID sumatriptan succinate 50 mg PO Q2-4H PRN valsartan 40 mg PO DAILY warfarin 5 mg See Protocol PO DAILY Nursing Note INR: 3.3 in therapeutic range OF 2.5-3.5 Medications and supplements reviewed No changes in health, diet, medications, or supplements, Denies any signs and symptoms of bleeding or bruising or clotting. Bleeding, bruising, clotting discussed Nutritional guidance given Dose: Continue usual dose of 5mg daily F/U INR: 4 weeks Patient verbalizes understanding of instructions given Anti-Coag Initial Assessment Social Hx Patient Tobacco Use Status: Never used Tobacco alcohol intake: current Alcohol intake frequency: does not drink Cardiovascular Hx: Cardiomyopathy (mild per pt) and Other (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 Illness/Depression: No Coding Level of Care Code Est Patient Level 1 Diagnoses Current use of anticoagulant therapy Z79.01 Results AMB INR Fingerstick AMB INR Fingerstick 3.3 Last Edit by Virginia Smallwood RN on 05/20/23 13:14 INTERFACE DELAY Assessment & Plan Assessment & Plan (1) Current use of anticoagulant therapy: Code(s): Z79.01 - manager terminal (current) use of anticoagulants Category: Medical
[2023-05-20 13:18] LABS: Prothrombin Time Whole Bld POC 39.7 sec (11.1-13.5); ~PT, ~INR - Anti Coag Clinic 3.3 (0.9-1.1)
== END 2023-05-20 13:20 | disposition home or self-care (01) ==
LOC: HO.ACS 13:06
PROVIDERS: PCP Internal Medicine; Visit Provider Internal Medicine
DX: Z79.01 Long term (current) use of anticoagulants (principal)

== ENCOUNTER → 2023-05-20 13:06 | Outpatient (BNVA) | payer BC, SELFPAY | PROVIDERS: PCP Internal Medicine; Visit Provider Internal Medicine | DX: Z95.2 Presence of prosthetic heart valve (principal); Z51.81 Encounter for therapeutic drug level monitoring; Z79.01 Long term (current) use of anticoagulants | CPT/HCPCS: 85610; 99211 ==

== ENCOUNTER 2023-06-17 13:01 | Outpatient (AMB) | payer BC, SELFPAY ==
[2023-06-17 13:08] LABS: Prothrombin Time Whole Bld POC 36.4 sec (11.1-13.5)
--- NOTE | 2023-06-17 13:11 | MHC.OFFVISCO ---
Intake Intake Visit Reasons: Anticoagulation Allergies No Known Drug Allergies Allergy (Unknown, Verified 06/17/23 13:03) Unknown Medication List - Last Reconciled 06/17/23 by Virginia Smallwood RN amoxicillin 2,000 mg PO ONCE whknporlhd-ajvvzxnhbosie-ozrt 50-325-40 mg 1 cap PO Q6H PRN cholecalciferol (vitamin D3) 50 mcg PO DAILY metoprolol succinate ER 50 mg PO DAILY metronidazole 0.75% appl topical BID sumatriptan succinate 50 mg PO Q2-4H PRN valsartan 40 mg PO DAILY warfarin 5 mg See Protocol PO DAILY Nursing Note Amb to [facility] feeling well INR: 3.0 in therapeutic range (2.5-3.0) Medications and supplements reviewed No changes in health, diet, medications, or supplements, sts he had a lot of greens the past couple weeks but tried to balance with reds Denies any signs and symptoms of bleeding or bruising or clotting. Bleeding, bruising, clotting discussed Nutritional guidance given , balance greens and reds in diet and be consistent Dose: continue usual 5mg daily F/U INR: 1 month Patient verbalizes understanding of instructions given Anti-Coag Initial Assessment Social Hx Patient Tobacco Use Status: Never used Tobacco alcohol intake: current Alcohol intake frequency: does not drink Cardiovascular Hx: Cardiomyopathy (mild per pt) and Other (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 Illness/Depression: No Coding Level of Care Code Est Patient Level 1 Diagnoses Current use of anticoagulant therapy Z79.01 Time Spent (min) 15 Assessment & Plan Assessment & Plan (1) Current use of anticoagulant therapy: Code(s): Z79.01 - custodial (current) use of anticoagulants Category: Medical
== END 2023-06-17 13:15 | disposition home or self-care (01) ==
LOC: HO.ACS 13:01
PROVIDERS: PCP Internal Medicine; Visit Provider Internal Medicine
DX: Z79.01 Long term (current) use of anticoagulants (principal)

== ENCOUNTER → 2023-06-17 13:01 | Outpatient (BNVA) | payer BC, SELFPAY | PROVIDERS: PCP Internal Medicine; Visit Provider Internal Medicine | DX: Z95.2 Presence of prosthetic heart valve (principal); Z51.81 Encounter for therapeutic drug level monitoring; Z79.01 Long term (current) use of anticoagulants | CPT/HCPCS: 85610; 99211 ==

== ENCOUNTER 2023-07-22 13:01 | Outpatient (AMB) | payer BC, SELFPAY ==
--- NOTE | 2023-07-22 13:08 | MHC.OFFVISCO ---
Intake Intake Visit Reasons: Anticoagulation Allergies No Known Drug Allergies Allergy (Unknown, Verified 07/22/23 13:04) Unknown Medication List - Last Reconciled 07/22/23 by Lenora Rae RN amoxicillin 2,000 mg PO ONCE xxfrxeavil-dhlsjpgfwxbjq-wike 50-325-40 mg 1 cap PO Q6H PRN cholecalciferol (vitamin D3) 50 mcg PO DAILY metoprolol succinate ER 50 mg PO DAILY metronidazole 0.75% appl topical BID sumatriptan succinate 50 mg PO Q2-4H PRN valsartan 40 mg PO DAILY warfarin 5 mg See Protocol PO DAILY Nursing Note INR: 3.0- in therapeutic range of 2.5-3.5 Medications and supplements reviewed No changes in health, diet, medications, or supplements, Denies any signs and symptoms of bleeding or bruising or clotting. 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 Illness/Depression: No Coding Level of Care Code Est Patient Level 1 Diagnoses Current use of anticoagulant therapy Z79.01 Results AMB INR Fingerstick AMB INR Fingerstick 3.0 Last Edit by Lenora Rae RN on 07/22/23 13:09 Assessment & Plan Assessment & Plan (1) Current use of anticoagulant therapy: Code(s): Z79.01 - terminal supervisor (current) use of anticoagulants Category: Medical
[2023-07-22 13:10] LABS: Prothrombin Time Whole Bld POC 35.8 sec (11.1-13.5)
== END 2023-07-22 13:17 | disposition home or self-care (01) ==
LOC: HO.ACS 13:01
PROVIDERS: PCP Internal Medicine; Visit Provider Internal Medicine
DX: Z79.01 Long term (current) use of anticoagulants (principal)

== ENCOUNTER → 2023-07-22 13:01 | Outpatient (BNVA) | payer BC, SELFPAY | PROVIDERS: PCP Internal Medicine; Visit Provider Internal Medicine | DX: Z95.2 Presence of prosthetic heart valve (principal); Z51.81 Encounter for therapeutic drug level monitoring; Z79.01 Long term (current) use of anticoagulants | CPT/HCPCS: 85610; 99211 ==

== ENCOUNTER 2023-08-19 12:59 | Outpatient (AMB) | payer BC, SELFPAY ==
[2023-08-19 13:07] LABS: Prothrombin Time Whole Bld POC 44.5 sec (11.1-13.5); ~PT, ~INR - Anti Coag Clinic 3.7 (0.9-1.1)
--- NOTE | 2023-08-19 13:17 | MHC.OFFVISCO ---
Intake Intake Visit Reasons: Anticoagulation Allergies No Known Drug Allergies Allergy (Unknown, Verified 08/19/23 13:02) Unknown Medication List - Last Reconciled 08/19/23 by Virginia Smallwood RN amoxicillin 2,000 mg PO ONCE cahjvvttrb-qhiowocymnwzv-rbqq 50-325-40 mg 1 cap PO Q6H PRN cholecalciferol (vitamin D3) 50 mcg PO DAILY metoprolol succinate ER 50 mg PO DAILY metronidazole 0.75% appl topical BID sumatriptan succinate 50 mg PO Q2-4H PRN valsartan 40 mg PO DAILY warfarin 5 mg See Protocol PO DAILY Nursing Note INR 3.7?? out of therapeutic range of 2.5-3.5 Medications and supplements reviewed: no changes Patient status: well Medications or supplements: no change Diet: usual diet but did eat out recently and unaware of anything that could have raised the INR Denies any signs and symptoms of bleeding or clotting or unusual bruising Bleeding, bruising, clotting discussed Nutritional guidance given: Have a serving of greens today or tomorrow Dose: decrease today to 2.5mg (5mg) then resume usual dose of 5 mg daily F/U INR Date : 2 weeks?? Patient verbalizing understanding of instructions given. 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 Illness/Depression: No Coding Level of Care Code Est Patient Level 1 Diagnoses Current use of anticoagulant therapy Z79.01 Results AMB INR Fingerstick AMB INR Fingerstick 3.7 Last Edit by Virginia Smallwood RN on 08/19/23 13:12 interface delay Assessment & Plan Assessment & Plan (1) Current use of anticoagulant therapy: Code(s): Z79.01 - prison (current) use of anticoagulants Category: Medical
== END 2023-08-19 13:20 | disposition home or self-care (01) ==
LOC: HO.ACS 12:59
PROVIDERS: PCP Internal Medicine; Visit Provider Internal Medicine
DX: Z79.01 Long term (current) use of anticoagulants (principal)

== ENCOUNTER → 2023-08-19 12:59 | Outpatient (BNVA) | payer BC, SELFPAY | PROVIDERS: PCP Internal Medicine; Visit Provider Internal Medicine | DX: Z95.2 Presence of prosthetic heart valve (principal); Z51.81 Encounter for therapeutic drug level monitoring; Z79.01 Long term (current) use of anticoagulants | CPT/HCPCS: 85610; 99211 ==

== ENCOUNTER 2023-09-02 13:17 | Outpatient (AMB) | payer BC, SELFPAY ==
[2023-09-02 13:23] LABS: Prothrombin Time Whole Bld POC 43.1 sec (11.1-13.5); ~PT, ~INR - Anti Coag Clinic 3.6 (0.9-1.1)
--- NOTE | 2023-09-02 13:30 | MHC.OFFVISCO ---
Intake Intake Visit Reasons: Anticoagulation Allergies No Known Drug Allergies Allergy (Unknown, Verified 09/02/23 13:18) Unknown Medication List - Last Reconciled 09/02/23 by Virginia Man RN amoxicillin 2,000 mg PO ONCE mykdakzoiv-ueexoxloswyei-hbxx 50-325-40 mg 1 cap PO Q6H PRN cholecalciferol (vitamin D3) 50 mcg PO DAILY metoprolol succinate ER 50 mg PO DAILY metronidazole 0.75% appl topical BID sumatriptan succinate 50 mg PO Q2-4H PRN valsartan 40 mg PO DAILY warfarin 5 mg See Protocol PO DAILY Nursing Note Amb to ACS feeling well Medications and supplements reviewed No changes in health, diet, medications, or supplements, Denies any signs and symptoms of bleeding, bruising, or clotting.Denies any nosebleeds the last couple weeks INR 3.6 above therapeutic range (2.5-3.5) discussion with pt and will keep same dosing 5mg daily and add an extra green to diet F/U INR: 3 weeks as he will be in [place] in 2 weeks- sts he will watch diet while away Patient verbalizes understanding of instructions given Anti-Coag Initial Assessment Social Hx Patient Tobacco Use Status: Never used Tobacco alcohol intake: current Alcohol intake frequency: does not drink Cardiovascular Hx: Cardiomyopathy (mild per pt) and Other (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 Illness/Depression: No Questionnaires HAS-BLED Does the patient had uncontrolled Hypertension?: No Does the patient have renal disease?: No Does the patient have liver disease?: No Does the patient have a history of stroke?: No Has the patient had major bleeding or predisposition to bleeding?: No Does the patient have labile INRs?: No Is the patient over 65 years of age?: No Is the patient on medications that gives them a predisposition to bleeding?: Yes Does the patient use alcohol?: No HAS-BLED Score: 1 CHADSVASC Age: <65 Gender: Male Does the patient have a history of CHF?: No Does the patient have a history of Hypertension?: No Does the patient have a history of Stroke/TIA/Thromboembolism?: No Does the patient have a history of Vascular Disease (prior MT, PAD or aortic plaque)?: Yes Does the patient have a history of Diabetes?: No CHADS VACS Score: 1 Robbie Prediction Score Rsk VTE Active Cancer: No Previous VTE, excluding superficial vein thrombosis: No Reduced mobility: No Already known Thrombophilic Condition: Yes With-in last month Trauma and/or Surgery: No Elderly 70 year or older: No Heart and/or Respiratory Failure: No Acute Myocardial infarction and/or Ischemic Stroke: No Acute Infection and/or Rheumatologic Disorder: No Obesity (BMI 30 or greater): No Ongoing Hormonal Treatment: No Score: 3 Robbie Score less than 4; Low Risk of VTE Robbie Score 4 or greater; High Risk of VTE Coding Level of Care Code Est Patient Level 1 Diagnoses Current use of anticoagulant therapy Z79.01 Time Spent (min) 15 Assessment & Plan Assessment & Plan (1) Current use of anticoagulant therapy: Code(s): Z79.01 - alf (current) use of anticoagulants Category: Medical
== END 2023-09-02 13:32 | disposition home or self-care (01) ==
LOC: HO.ACS 13:17
PROVIDERS: PCP Internal Medicine; Visit Provider Internal Medicine
DX: Z79.01 Long term (current) use of anticoagulants (principal)

== ENCOUNTER → 2023-09-02 13:17 | Outpatient (BNVA) | payer BC, SELFPAY | PROVIDERS: PCP Internal Medicine; Visit Provider Internal Medicine | DX: Z95.2 Presence of prosthetic heart valve (principal); Z51.81 Encounter for therapeutic drug level monitoring; Z79.01 Long term (current) use of anticoagulants | CPT/HCPCS: 85610; 99211 ==

== ENCOUNTER 2023-09-23 12:57 | Outpatient (AMB) | payer BC, SELFPAY ==
[2023-09-23 13:03] LABS: Prothrombin Time Whole Bld POC 43.5 sec (11.1-13.5); ~PT, ~INR - Anti Coag Clinic 3.6 (0.9-1.1)
--- NOTE | 2023-09-23 13:08 | MHC.OFFVISCO ---
Intake Intake Visit Reasons: Anticoagulation Allergies No Known Drug Allergies Allergy (Unknown, Verified 09/23/23 12:58) Unknown Medication List - Last Reconciled 09/23/23 by Virginia Man RN amoxicillin 2,000 mg PO ONCE ppbgpadkxo-lbfkngonmmpxk-hjjg 50-325-40 mg 1 cap PO Q6H PRN cholecalciferol (vitamin D3) 50 mcg PO DAILY metoprolol succinate ER 50 mg PO DAILY metronidazole 0.75% appl topical BID sumatriptan succinate 50 mg PO Q2-4H PRN valsartan 40 mg PO DAILY warfarin 5 mg See Protocol PO DAILY Nursing Note AMb to ACS feeling well Medications and supplements reviewed No changes in health, diet, medications, or supplements, Denies any signs and symptoms of bleeding, bruising, or clotting. INR 3.6 just above therapeutic range (2.5-3.5) just returned from car trip to [facility] he did increase his greens before and after the trip sts he has been eating a lot of craisins Dose- continue same dosing 5mg daily Nutritional guidance given- decrease craisins and add a cooked green to diet (mostly eats raw greens, salads) F/U INR: 3 weeks Patient verbalizes understanding of instructions given Anti-Coag Initial Assessment Social Hx Patient Tobacco Use Status: Never used Tobacco alcohol intake: current Alcohol intake frequency: does not drink Cardiovascular Hx: Cardiomyopathy (mild per pt) and Other (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
== END 2023-09-23 13:18 | disposition home or self-care (01) ==
LOC: HO.ACS 12:57
PROVIDERS: PCP Internal Medicine; Visit Provider Internal Medicine
DX: Z79.01 Long term (current) use of anticoagulants (principal)

== ENCOUNTER → 2023-09-23 12:57 | Outpatient (BNVA) | payer BC, SELFPAY | PROVIDERS: PCP Internal Medicine; Visit Provider Internal Medicine | DX: Z95.2 Presence of prosthetic heart valve (principal); Z51.81 Encounter for therapeutic drug level monitoring; Z79.01 Long term (current) use of anticoagulants | CPT/HCPCS: 85610; 99211 ==

== ENCOUNTER 2023-10-14 13:19 | Outpatient (AMB) | payer BC, SELFPAY ==
[2023-10-14 13:31] LABS: Prothrombin Time Whole Bld POC 47.1 sec (11.1-13.5); ~PT, ~INR - Anti Coag Clinic 3.9 (0.9-1.1)
--- NOTE | 2023-10-14 13:34 | MHC.OFFVISCO ---
Intake Intake Visit Reasons: Anticoagulation Allergies No Known Drug Allergies Allergy (Unknown, Verified 10/14/23 13:25) Unknown Medication List - Last Reconciled 10/14/23 by Lenora Rae RN amoxicillin 2,000 mg PO ONCE qwbwtecxnx-ekfbwhifxpmwx-oqpg 50-325-40 mg 1 cap PO Q6H PRN cholecalciferol (vitamin D3) 50 mcg PO DAILY metoprolol succinate ER 50 mg PO DAILY metronidazole 0.75% appl topical BID sumatriptan succinate 50 mg PO Q2-4H PRN valsartan 40 mg PO DAILY warfarin 5 mg See Protocol PO DAILY Nursing Note INR3.9-?? out of therapeutic range of 2.5-3.5 Medications and supplements reviewed Patient status: no c.o , unsure why inr is elev, denies med changes, changes in appetite, etoh, increased stress Medications or supplements: no changes Diet: appetite good Denies any signs and symptoms of bleeding or clotting or unusual bruising Bleeding, bruising, clotting discussed Nutritional guidance given: eat greens to lower, no reds for 2 days pt enc to eat cooked greens today and 3 times a week Dose: 2.5mg today then cont 5mg x 7 F/U INR Date : 2 weeks Patient verbalizing understanding of instructions given. 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
== END 2023-10-14 13:44 | disposition home or self-care (01) ==
LOC: HO.ACS 13:19
PROVIDERS: PCP Internal Medicine; Visit Provider Internal Medicine
DX: Z79.01 Long term (current) use of anticoagulants (principal)

== ENCOUNTER → 2023-10-14 13:19 | Outpatient (BNVA) | payer BC, SELFPAY | PROVIDERS: PCP Internal Medicine; Visit Provider Internal Medicine | DX: Z95.2 Presence of prosthetic heart valve (principal); Z51.81 Encounter for therapeutic drug level monitoring; Z79.01 Long term (current) use of anticoagulants | CPT/HCPCS: 85610; 99211 ==

== ENCOUNTER 2023-10-28 13:11 | Outpatient (AMB) | payer BC, SELFPAY ==
[2023-10-28 13:25] LABS: Prothrombin Time Whole Bld POC 44.3 sec (11.1-13.5); ~PT, ~INR - Anti Coag Clinic 3.7 (0.9-1.1)
--- NOTE | 2023-10-28 13:38 | MHC.OFFVISCO ---
Intake Intake Visit Reasons: Anticoagulation Allergies No Known Drug Allergies Allergy (Unknown, Verified 10/28/23 13:19) Unknown Medication List - Last Reconciled 10/28/23 by Virginia Smallwood RN amoxicillin 2,000 mg PO ONCE flbcnwfnoi-mqnsuxidwdrys-bcqz 50-325-40 mg 1 cap PO Q6H PRN cholecalciferol (vitamin D3) 50 mcg PO DAILY metoprolol succinate ER 50 mg PO DAILY metronidazole 0.75% appl topical BID sumatriptan succinate 50 mg PO Q2-4H PRN valsartan 40 mg PO DAILY warfarin 5 mg See Protocol PO DAILY Nursing Note INR 3.7 out of therapeutic range of 2.5-3.5 Medications and supplements reviewed: no changes Patient status: Well. No change in diet or physical activity. Denies any signs and symptoms of bleeding or clotting or unusual bruising Bleeding, bruising, clotting discussed Nutritional guidance given: to have a serving of cooked greens today Dose: weekly dose decreased to 5mg X 5 days and 2.5mg X 2 days instead of 5mg daily F/U INR Date : 2 weeks?? Patient verbalizing understanding of instructions given. 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
== END 2023-10-28 13:48 | disposition home or self-care (01) ==
LOC: HO.ACS 13:11
PROVIDERS: PCP Internal Medicine; Visit Provider Internal Medicine
DX: Z79.01 Long term (current) use of anticoagulants (principal)

== ENCOUNTER → 2023-10-28 13:11 | Outpatient (BNVA) | payer BC, SELFPAY | PROVIDERS: PCP Internal Medicine; Visit Provider Internal Medicine | DX: Z95.2 Presence of prosthetic heart valve (principal); Z51.81 Encounter for therapeutic drug level monitoring; Z79.01 Long term (current) use of anticoagulants | CPT/HCPCS: 85610; 99211 ==

== ENCOUNTER 2023-11-11 13:15 | Outpatient (AMB) | payer BC, SELFPAY ==
--- NOTE | 2023-11-11 13:34 | MHC.OFFVISCO ---
Intake Intake Visit Reasons: Anticoagulation Allergies No Known Drug Allergies Allergy (Unknown, Verified 11/11/23 13:30) Unknown Medication List - Last Reconciled 11/11/23 by Lenora Rae RN amoxicillin 2,000 mg PO ONCE udqbqlxjtu-mkbtauzcftwrn-yvzl 50-325-40 mg 1 cap PO Q6H PRN cholecalciferol (vitamin D3) 50 mcg PO DAILY metoprolol succinate ER 50 mg PO DAILY metronidazole 0.75% appl topical BID sumatriptan succinate 50 mg PO Q2-4H PRN valsartan 40 mg PO DAILY warfarin 5 mg See Protocol PO DAILY Nursing Note INR: 2.8- in therapeutic range 2.5-3.5 Medications and supplements reviewed No changes in health, diet, medications, or supplements, Denies any signs and symptoms of bleeding or bruising or clotting. 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
[2023-11-11 13:36] LABS: Prothrombin Time Whole Bld POC 33.1 sec (11.1-13.5); ~PT, ~INR - Anti Coag Clinic 2.8 (0.9-1.1)
== END 2023-11-11 13:44 | disposition home or self-care (01) ==
LOC: HO.ACS 13:15
PROVIDERS: PCP Internal Medicine; Visit Provider Internal Medicine
DX: Z79.01 Long term (current) use of anticoagulants (principal)

== ENCOUNTER → 2023-11-11 13:15 | Outpatient (BNVA) | payer BC, SELFPAY | PROVIDERS: PCP Internal Medicine; Visit Provider Internal Medicine | DX: Z95.2 Presence of prosthetic heart valve (principal); Z51.81 Encounter for therapeutic drug level monitoring; Z79.01 Long term (current) use of anticoagulants | CPT/HCPCS: 85610; 99211 ==

== ENCOUNTER 2023-11-24 12:58 | Outpatient (AMB) | payer BC, SELFPAY ==
--- NOTE | 2023-11-24 13:24 | MHC.OFFVISCO ---
Intake Intake Visit Reasons: Anticoagulation Allergies No Known Drug Allergies Allergy (Unknown, Verified 11/24/23 13:17) Unknown Medication List - Last Reconciled 11/24/23 by Lenora Rae RN amoxicillin 2,000 mg PO ONCE lpgbnxparb-aawfvpmieupaa-hfqg 50-325-40 mg 1 cap PO Q6H PRN cholecalciferol (vitamin D3) 50 mcg PO DAILY metoprolol succinate ER 50 mg PO DAILY metronidazole 0.75% appl topical BID sumatriptan succinate 50 mg PO Q2-4H PRN valsartan 40 mg PO DAILY warfarin 5 mg See Protocol PO DAILY Nursing Note INR: 3.1- in therapeutic range of 2.5-3.5 Medications and supplements reviewed- no changes No changes in health, diet, medications, or supplements, Denies any signs and symptoms of bleeding or bruising or clotting. 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 Illness/Depression: No Coding Level of Care Code Est Patient Level 1 Diagnoses Current use of anticoagulant therapy Z79.01 Results AMB INR Fingerstick AMB INR Fingerstick 3.1 Last Edit by Lenora Rae RN on 11/24/23 13:26 interface delay Assessment & Plan Assessment & Plan (1) Current use of anticoagulant therapy: Code(s): Z79.01 - prison (current) use of anticoagulants Category: Medical
[2023-11-24 15:18] LABS: Prothrombin Time Whole Bld POC 37.5 sec (11.1-13.5); ~PT, ~INR - Anti Coag Clinic 3.1 (0.9-1.1)
== END 2023-11-24 13:32 | disposition home or self-care (01) ==
LOC: HO.ACS 12:58
PROVIDERS: PCP Internal Medicine; Visit Provider Internal Medicine
DX: Z79.01 Long term (current) use of anticoagulants (principal)

== ENCOUNTER → 2023-11-24 12:58 | Outpatient (BNVA) | payer BC, SELFPAY | PROVIDERS: PCP Internal Medicine; Visit Provider Internal Medicine | DX: Z95.2 Presence of prosthetic heart valve (principal); Z51.81 Encounter for therapeutic drug level monitoring; Z79.01 Long term (current) use of anticoagulants | CPT/HCPCS: 85610; 99211 ==

== ENCOUNTER 2023-12-16 13:03 | Outpatient (AMB) | payer BC, SELFPAY ==
--- NOTE | 2023-12-16 13:12 | MHC.OFFVISCO ---
Intake Intake Visit Reasons: Anticoagulation Allergies No Known Drug Allergies Allergy (Unknown, Verified 12/16/23 13:07) Unknown Medication List - Last Reconciled 12/16/23 by Lenora Rae RN amoxicillin 2,000 mg PO ONCE ynnsdwumth-ydpcaloyggkkx-okwg 50-325-40 mg 1 cap PO Q6H PRN cholecalciferol (vitamin D3) 50 mcg PO DAILY metoprolol succinate ER 50 mg PO DAILY metronidazole 0.75% appl topical BID sumatriptan succinate 50 mg PO Q2-4H PRN valsartan 40 mg PO DAILY warfarin 5 mg See Protocol PO DAILY Nursing Note INR: 2.9- in therapeutic range 2.5-3.5 Medications and supplements reviewed- no changes No changes in health, diet, medications, or supplements, Denies any signs and symptoms of bleeding or bruising or clotting. Bleeding, bruising, clotting discussed Nutritional guidance given Dose: 2.5mg x 1. 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 Illness/Depression: No Coding Level of Care Code Est Patient Level 1 Diagnoses Current use of anticoagulant therapy Z79.01 Results AMB INR Fingerstick AMB INR Fingerstick 2.9 Last Edit by Lenora Rae RN on 12/16/23 13:14 interface delay Assessment & Plan Assessment & Plan (1) Current use of anticoagulant therapy: Code(s): Z79.01 - [facility]PC (current) use of anticoagulants Category: Medical
[2023-12-16 13:13] LABS: Prothrombin Time Whole Bld POC 34.9 sec (11.1-13.5); ~PT, ~INR - Anti Coag Clinic 2.9 (0.9-1.1)
== END 2023-12-16 13:21 | disposition home or self-care (01) ==
LOC: HO.ACS 13:03
PROVIDERS: PCP Internal Medicine; Visit Provider Internal Medicine
DX: Z79.01 Long term (current) use of anticoagulants (principal)

== ENCOUNTER → 2023-12-16 13:03 | Outpatient (BNVA) | payer BC, SELFPAY | PROVIDERS: PCP Internal Medicine; Visit Provider Internal Medicine | DX: Z95.2 Presence of prosthetic heart valve (principal); Z79.01 Long term (current) use of anticoagulants; Z51.81 Encounter for therapeutic drug level monitoring | CPT/HCPCS: 85610; 99211 ==

== ENCOUNTER 2024-01-13 13:04 | Outpatient (AMB) | payer BC, SELFPAY ==
--- NOTE | 2024-01-13 13:11 | MHC.OFFVISCO ---
Intake Intake Visit Reasons: Anticoagulation Allergies No Known Drug Allergies Allergy (Unknown, Verified 01/13/24 13:06) Unknown Medication List - Last Reconciled 01/13/24 by Lenora Rae RN amoxicillin 2,000 mg PO ONCE evkjercnxz-jcyetlnueedde-lnwx 50-325-40 mg 1 cap PO Q6H PRN cholecalciferol (vitamin D3) 50 mcg PO DAILY metoprolol succinate ER 50 mg PO DAILY metronidazole 0.75% appl topical BID sumatriptan succinate 50 mg PO Q2-4H PRN valsartan 40 mg PO DAILY warfarin 5 mg See Protocol PO DAILY Nursing Note INR: 3.3- in therapeutic range 2.5-3.5 Medications and supplements reviewed No changes in health, diet, medications, or supplements, Denies any signs and symptoms of bleeding or bruising or clotting. 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
[2024-01-13 13:12] LABS: ~PT, ~INR - Anti Coag Clinic 3.3 (0.9-1.1)
== END 2024-01-13 13:24 | disposition home or self-care (01) ==
LOC: HO.ACS 13:04
PROVIDERS: PCP Internal Medicine; Visit Provider Internal Medicine
DX: Z79.01 Long term (current) use of anticoagulants (principal)

== ENCOUNTER → 2024-01-13 13:04 | Outpatient (BNVA) | payer BC, SELFPAY | PROVIDERS: PCP Internal Medicine; Visit Provider Internal Medicine | DX: Z95.2 Presence of prosthetic heart valve (principal); Z79.01 Long term (current) use of anticoagulants; Z51.81 Encounter for therapeutic drug level monitoring | CPT/HCPCS: 85610; 99211 ==

== ENCOUNTER 2024-01-16 07:15 | Outpatient (REF) | payer BC, SELFPAY ==
[2024-01-16 07:27] LABS: MANUAL DIFF FLAG NO
[2024-01-16 07:40] LABS: Basophils Percent Auto 0.7 % (0-2); Eosinophils Absolute Auto 0.1 X10*3/uL (0.0-0.4); Eosinophils Percent Auto 1.2 % (0-4); Hematocrit 41.6 % (42.0-52.0); Hemoglobin 14.3 g/dl (14.0-18.0); Imm Gran Abs Auto 0.01 X10*3/uL (0.00-0.03); Imm Gran Pct Auto 0.2 % (0.0-0.4); Lymphocytes Absolute Auto 1.5 X10*3/uL (1.2-4.9); Lymphocytes Percent Auto 34.7 % (20-40); Mean Corpuscular HGB Conc 34.4 g/dl (31.0-36.0); Mean Corpuscular Hemoglobin 29.3 pg (27.0-33.0); Mean Corpuscular Volume 85.2 fL (80.0-98.0); Mean Platelet Volume 10.3 fL (9.4-12.4); Monocytes Absolute Auto 0.4 X10*3/uL (0.1-1.2); Neutrophils Absolute Auto 2.3 x10*3/uL (2.0-8.3); Neutrophils Percent Auto 53.2 % (45-73); Platelet Count 171 X10*3/uL (160-400); Red Blood Count 4.88 X10*6/uL (4.60-5.80); Red Cell Distribution Width 13.1 % (11.0-16.0); White Blood Count 4.3 X10*3/uL (4.8-10.8)
[2024-01-16 07:51] LABS: Appearance Urine Clear; Color Urine Yellow; Glucose Urine UA Negative (Negative); Leukocyte Esterase Urine Negative (Negative); Nitrite Urine Negative (Negative); PH 5.5 (5.0-9.0); Specific Gravity - Urine 1.025 (1.005-1.025); Urine Blood Negative (Negative); Urine Ketones Negative (Negative); Urine Protein Negative (Neg-Trace)
[2024-01-16 07:53] LABS: Estimated Average Glucose 100 mg/dL; Hemoglobin A1C 118.3946 umol/L; Hemoglobin A1c % 5.1 % (<6.0); Total Hemoglobin (HGBA1C) 3621.4242 umol/L
[2024-01-16 08:24] LABS: B Type Natriuretic Peptide 24 pg/mL (<100)
[2024-01-16 08:36] LABS: Alanine Aminotransferase 20 U/L (0-40); Albumin Level 4.1 g/dL (3.5-5.0); Alkaline Phosphatase 59 U/L (39-117); Anion Gap 13 (12-20); Aspartate Amino Transferase 24 U/L (5-37); Bilirubin Total 0.8 mg/dL (0.0-1.0); Blood Urea Nitrogen 16 mg/dL (9-16); Calcium 9.4 mg/dL (8.4-10.2); Carbon Dioxide 23 mmol/L (22-29); Chloride 109 mmol/L (96-108); Cholesterol 211 mg/dL (<200); Estimated Glomerular Filt Rate > 60; Glucose Fasting 98 mg/dL (60-99); HDL Cholesterol 37 mg/dL (>40); LDL Cholesterol Calculated 147 mg/dL (<100); Potassium 3.7 mmol/L (3.3-5.1); Sodium 141 mmol/L (135-145); Total Protein 6.8 g/dL (6.5-8.0); Triglycerides 138 mg/dL (<150)
[2024-01-16 08:40] LABS: TSH reflex Free T4 1.53 uIU/mL (0.32-4.0); Vitamin D 25-OH Total 45.5 ng/mL (>30)
[2024-01-16 08:49] LABS: Prostate Specific Antigen 0.67 ng/mL (<0.05-4.0)
== END 2024-01-16 07:16 | disposition home or self-care (01) ==
LOC: HO.LAB 07:15
PROVIDERS: PCP Internal Medicine; Visit Provider Internal Medicine
DX: Z00.00 Encounter for general adult medical examination without abnormal findings (principal); I42.9 Cardiomyopathy, unspecified; E78.00 Pure hypercholesterolemia, unspecified; N40.0 Benign prostatic hyperplasia without lower urinary tract symptoms; R30.0 Dysuria; E55.9 Vitamin D deficiency, unspecified; R73.01 Impaired fasting glucose; Z12.5 Encounter for screening for malignant neoplasm of prostate
CPT/HCPCS: 36415; 80053; 80061; 81003; 82306; 83036; 83880; 84153; 84443; 85025

== ENCOUNTER 2024-01-19 15:29 | Outpatient (AMB) | payer BC, SELFPAY ==
[2024-01-19 15:31] VITALS: BP 120/86; PULSE 78; O2SAT 95; BMI 25.0
--- NOTE | 2024-01-19 15:31 | MHC.PC.OV ---
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 Accompanied by: Self / Same As Patient Allergies No Known Drug Allergies Allergy (Unknown, Verified 01/19/24 16:03) Unknown Medication List - Last Reconciled 01/19/24 by Feliberto Garcia MD amoxicillin 2,000 mg PO ONCE iufjiakixw-obqhsjagkowwy-foff 50-325-40 mg 1 cap PO Q6H PRN cholecalciferol (vitamin D3) 50 mcg PO DAILY metoprolol succinate ER 50 mg PO DAILY metronidazole 0.75% appl topical BID sumatriptan succinate 50 mg PO Q2-4H PRN valsartan 40 mg PO DAILY warfarin 5 mg See Protocol PO DAILY Tobacco use date assessed: 01/19/24 Dental Screening Dental Screen Date: 01/19/24 Did you have a dental visit in the last 12 months?: Yes Did you have a dental problem in the last 6 months where you did not have access to dental care?: No Was dental information given to patient?: Patient has dentist HPI cardiomyopathy HPI Details Patient comes in today for his follow up visit States that he feels okay He denies any headaches or dizziness Denies any chest pains, no SOB No nausea/vomiting, no abdominal pain No change in bowel habits noted He had his follow up labs done a few days ago - to discuss his results [facility] Medical History Pure hypercholesterolemia History of scarlet fever Cardiomyopathy Vitamin D deficiency Migraine Surgical History Hx of prosthetic aortic valve replacement (~01/10/98) Family History Mother No problems noted. Father No problems noted. 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 1. Little interest or pleasure in doing things: not at all 2. Feeling down, depressed, or hopeless: not at all 3. Trouble falling or staying asleep, or sleeping too much: not at all 4. Feeling tired or having little energy: not at all 5. Poor appetite or overeating: not at all 6. Feeling bad about yourself - or that you are a failure or have let yourself or your family down: not at all 7. Trouble concentrating on things, such as reading the newspaper or watching television: not at all 8. Moving or speaking so slowly that other people could have noticed. Or the opposite - being so fidgety or restless that you have been moving around a lot more than usual: not at all 9. Thoughts that you would be better off or of hurting yourself in some way: not at all Total score: 0 Depression Screening Interpretation: Negative Depression Screening Done: Yes [id number] - PHQ-9 Billing: Yes Source: Developed by Drs. Christoph Cohn, Ashlyn Higgins, Jeremy Hernandez and colleagues, with an educational gail from [employer]. Thrive Questionnaire Date Thrive assessed: 01/19/24 I am a: Patient What is your living situation today?: I have a steady place to live Within the past 12 months, did the food you bought not last and you didn't have the money to get more?: Never true Within the past 12 months, did you worry whether your food would run out before you got money to buy more?: Never true Do you have trouble paying for medicines?: No Do you have trouble getting transportation to medical appointments?: No Do you have trouble paying your heating and electricity bill?: No Do you have trouble taking care of your child, family member or friend?: No Do you have trouble with day-to-day activities such as bathing, preparing meals, shopping, managing finances, etc.?: No Are you currently unemployed and looking for a job?: No Are you interested in more education?: No Please select the resources that you would like help with: None Currently or been in a relationship where the following occur: No concerns reported THRIVE Score: 0 AUDIT C Alcohol Use Questionnaire (AUDIT-C) 1. How often do you have a drink containing alcohol?: Never 2. How many drinks containing alcohol do you have on a typical day when you are drinking?: 1 or 2 (0) 3. How often do you have six or more drinks on one occasion?: Never Total Score: 0 Score Reviewed/Action Taken: Yes THADDEUS-7 AMB Questionnaire THADDEUS-7 Date THADDEUS - 7 assessed: 01/19/24 Feeling nervous, anxious, or on edge: 0 = Not at all Not being able to stop or control worryin = Not at all Worrying too much about different things: 0 = Not at all Trouble relaxin = Not at all Being so restless that it is hard to sit still: 0 = Not at all Becoming easily annoyed or irritable: 0 = Not at all Feeling afraid as if something awful might happen: 0 = Not at all Total THADDEUS-7 score (0-4 normal; 5-9 mild; 10-14 moderate; 15-21 severe): 0 Source: Developed by Drs. Christoph Cohn, Ashlyn Higgins, Jeremy Hernandez and colleagues, with an educational gail from [employer]. Review of Systems Const Denies chills, Denies fatigue, Denies fever(s) and Denies headache(s) ENT Denies dysphagia, Denies dizziness, Denies otalgia, Denies headache(s), Denies neck pain, Denies odynophagia and Denies sore throat Card Denies chest pain, Denies rapid heart rate, Denies irregular heart rhythm, Denies palpitations and Denies dyspnea Resp Denies chest congestion, Denies cough and Denies dyspnea GI Denies abdominal pain, Denies constipation, Denies dysphagia, Denies heartburn, Denies diarrhea, Denies nausea, Denies odynophagia and Denies vomiting Denies hematuria, Denies difficulty urinating, Denies dysuria and Denies urinary frequency Musc Denies back pain, Denies arthralgias and Denies neck pain Skin/Breast Denies rash Neuro Denies dizziness, Denies headache(s) and Denies paresthesias Endo Denies fatigue and Denies palpitations Physical exam (Primary Care) Vital Signs: Last Vital Signs Pulse 78 01/19/24 15:31 BP 120/86 01/19/24 15:31 Pulse Ox 95 01/19/24 15:31 Oxygen Delivery Method Room Air 01/19/24 15:31 BMI result Body Mass Index 25.0 Tobacco/Smoking Status: Tobacco use Status Tobacco use date assessed 01/19/24 01/19/24 15:35 Patient Tobacco Use Status Never used Tobacco 01/19/24 15:35 e-Cigarette/Vaping Use Never Used 01/19/24 15:35 PHQ-9: PHQ-9 Score PHQ-9: Total score 0 01/19/24 16:06 Depression Screening Interpretation: Negative Thrive Assessment: Date of Thrive Assessment Date Thrive assessed 01/19/24 01/19/24 15:35 Currently or been in a relationship where the following occur: No concerns reported Const General: no acute distress and alert HENMT Ears: TM's normal bilaterally and EAC's normal Throat: Yes posterior oropharynx normal and Yes tonsils normal (no TP congestion) Neck Neck: Yes no lymphadenopathy and Yes supple Thyroid: Thyroid normal Resp Auscultation: clear to auscultation bilaterally, no rales and no wheezes Cardio Rate: regular rate Rhythm: regular rhythm Heart sounds: Clicking heart sound present ((+) metallic click over the 2nd heart sound) and no murmurs GI Palpation (GI): Soft to palpation and nontender Auscultation: normal bowel sounds General: Yes no CVA tenderness Back/Spine/Pelvis Back: no CVA tenderness Thoracic/Lumbar Spine: No lumbar spinal tenderness Skin Rashes: no rashes Extrem General: Yes no clubbing, cyanosis or edema Results Reviewed Results Reviewed: Laboratory Tests 01/16/24 01/16/24 07:24 07:25 WBC 4.3 L Hgb 14.3 Hct 41.6 L Plt Count 171 Sodium 141 Potassium 3.7 Creatinine 0.86 Estimated GFR > 60 Fasting Glucose 98 Hemoglobin A1c % 5.1 Calcium 9.4 AST 24 ALT 20 B-Natriuretic Peptide 24 Triglycerides 138 Cholesterol 211 H LDL Cholesterol, Calc 147 H HDL Cholesterol 37 L Prostate Specific Ag 0.67 25-OH Vitamin D Total 45.5 TSH 1.53 Ur Specific [place] 1.025 Urine Protein Negative Urine Glucose (UA) Negative Urine Blood Negative Urine Nitrite Negative Ur Leukocyte Esterase Negative Coding Level of Care Code Est Pt Level 4 (19347) Diagnoses Cardiomyopathy, unspecified type I42.9 Cardiomyopathy type: unspecified Hx of prosthetic aortic valve replacement Z95.2 Pure hypercholesterolemia E78.00 Migraine without status migrainosus, not intractable, unspecified migraine type G43.909 Migraine type: unspecified Status migrainosus presence: without status migrainosus Intractability: not intractable Vitamin D deficiency E55.9 Assessment & Plan Assessment & Plan (1) Cardiomyopathy: Comment: sees cardiology (Dr. Muñoz) Code(s): I42.9 - Cardiomyopathy, unspecified Category: Medical Qualifiers: Cardiomyopathy type: unspecified Qualified Code(s): I42.9 - Cardiomyopathy, unspecified Plan: Patient remains asymptomatic from a cardiac standpoint Continue Valsartan 40 mg QD and Metoprolol ER 50 mg QD Follow up with cardiology (Dr. Candelario Muñoz) as scheduled (2) Hx of prosthetic aortic valve replacement: Onset Date: ~01/10/[address] Comment: [facility] valve - Dr. Grant - 1997 Code(s): Z95.2 - Presence of prosthetic heart valve Category: Surgical Plan: Continue Coumadin 5 mg QD for lifelong anticoagulation - patient follow up with the coumadin clinic as scheduled for routine PT/INR monitoring He will need endocarditis prophylaxis with Abx prior to any invasive procedures (3) Pure hypercholesterolemia: Code(s): E78.00 - Pure hypercholesterolemia, unspecified Category: Medical Plan: Results of his labs done a few days ago reviewed and discussed with patient - he is advised that his cholesterol numbers are still high (total cholesterol is at 211 mg/dl and LDL cholesterol at 147 mg/dl) but they have both been steadily and consistently getting lower over the past few years He still prefers to avoid taking any cholesterol-lowering medications if possible - have advised him that he really should consider taking Rx but I 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 Joe Carranza) Code(s): G43.909 - Migraine, unspecified, not intractable, without status migrainosus Category: Medical Qualifiers: Migraine type: unspecified Status migrainosus presence: without status migrainosus Intractability: not intractable Qualified Code(s): G43.909 - Migraine, unspecified, not intractable, without status migrainosus Plan: Stable Continue Fioricet 50-325-40 mg PRN and Sumatriptan 50 mg PRN as instructed - his insurance no longer covers Fioricet but patient states that he rarely takes this anyway and can get by without it or can substitute for his when needed by taking some Tylenol and caffeine-containing products Reinforced again avoidance of any potential migraine triggers as much as possible Follow up with neurology (Dr. Joe Carranza) as scheduled (5) Vitamin D deficiency: Code(s): E55.9 - Vitamin D deficiency, unspecified Category: Medical Plan: Continue Vitamin D3 2000 units QD Plan To return in 6 months for his next annual physical examination Orders: Orders Lipid Panel 6 Months E78.00 - Pure hypercholesterolemia, unspecified, Z00.00 - Encounter for general adult medical examination without abnormal findings UA CC w/rflx Micro + Cult 6 Months R30.0 - Dysuria, Z00.00 - Encounter for general adult medical examination without abnormal findings Complete Blood Count Auto Diff 6 Months D64.9 - Anemia, unspecified, Z00.00 - Encounter for general adult medical examination without abnormal findings Comprehensive [place]. Panel Fast 6 Months E78.00 - Pure hypercholesterolemia, unspecified, Z00.00 - Encounter for general adult medical examination without abnormal findings TSH reflex Free T4 6 Months E78.00 - Pure hypercholesterolemia, unspecified, Z00.00 - Encounter for general adult medical examination without abnormal findings Vitamin D 25-OH Total 6 Months E55.9 - Vitamin D deficiency, unspecified, Z00.00 - Encounter for general adult medical examination without abnormal findings
== END 2024-01-19 16:30 | disposition home or self-care (01) ==
PROVIDERS: PCP Internal Medicine; Visit Provider Internal Medicine
DX: I42.9 Cardiomyopathy, unspecified (principal); Z95.2 Presence of prosthetic heart valve; E78.00 Pure hypercholesterolemia, unspecified; G43.909 Migraine, unspecified, not intractable, without status migrainosus; E55.9 Vitamin D deficiency, unspecified

== ENCOUNTER → 2024-01-19 15:29 | Outpatient (BNVA) | payer BC, SELFPAY | PROVIDERS: PCP Internal Medicine; Visit Provider Internal Medicine ==

== ENCOUNTER 2024-02-09 15:29 | Outpatient (AMB) | payer BC, SELFPAY ==
--- NOTE | 2024-02-09 15:35 | MHC.OFFVISCO ---
Intake Intake Visit Reasons: Anticoagulation Allergies No Known Drug Allergies Allergy (Unknown, Verified 02/09/24 15:30) Unknown Medication List - Last Reconciled 02/09/24 by Lenora Rae RN amoxicillin 2,000 mg PO ONCE xoehjqzchb-ydpddykigiyip-aqni 50-325-40 mg 1 cap PO Q6H PRN cholecalciferol (vitamin D3) 50 mcg PO DAILY metoprolol succinate ER 50 mg PO DAILY metronidazole 0.75% appl topical BID sumatriptan succinate 50 mg PO Q2-4H PRN valsartan 40 mg PO DAILY warfarin 5 mg See Protocol PO DAILY Nursing Note INR: 2.5- in therapeutic range of 2.5-3.5 Medications and supplements reviewed- no changes No changes in health, diet, medications, or supplements, Denies any signs and symptoms of bleeding or bruising or clotting. Bleeding, bruising, clotting discussed Nutritional guidance given - no greens for 2 days, eat reds to raise Dose: 5mg x 6, 2.5mg x 1 F/U INR: pt req 4 weeks Patient verbalizes understanding of instructions given pt states had more greens last week Anti-Coag Initial Assessment Social Hx Patient Tobacco Use Status: Never used Tobacco alcohol intake: current Alcohol intake frequency: does not drink Cardiovascular Hx: Cardiomyopathy (mild per pt) and Other (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 Illness/Depression: No Coding Level of Care Code Est Patient Level 1 Diagnoses Current use of anticoagulant therapy Z79.01 Assessment & Plan Assessment & Plan (1) Current use of anticoagulant therapy: Code(s): Z79.01 - prison (current) use of anticoagulants Category: Medical
[2024-02-09 15:36] LABS: Prothrombin Time Whole Bld POC 29.9 sec (11.1-13.5); ~PT, ~INR - Anti Coag Clinic 2.5 (0.9-1.1)
== END 2024-02-09 15:51 | disposition home or self-care (01) ==
LOC: HO.ACS 15:29
PROVIDERS: PCP Internal Medicine; Visit Provider Internal Medicine
DX: Z79.01 Long term (current) use of anticoagulants (principal)

== ENCOUNTER → 2024-02-09 15:29 | Outpatient (BNVA) | payer BC, SELFPAY | PROVIDERS: PCP Internal Medicine; Visit Provider Internal Medicine | DX: Z95.2 Presence of prosthetic heart valve (principal); Z79.01 Long term (current) use of anticoagulants; Z51.81 Encounter for therapeutic drug level monitoring | CPT/HCPCS: 85610; 99211 ==

== ENCOUNTER 2024-03-08 09:21 | Outpatient (AMB) | payer BC, SELFPAY ==
[2024-03-08 13:11] LABS: Prothrombin Time Whole Bld POC 42.9 sec (11.1-13.5); ~PT, ~INR - Anti Coag Clinic 3.6 (0.9-1.1)
--- NOTE | 2024-03-08 13:19 | MHC.OFFVISCO ---
Intake Intake Visit Reasons: Anticoagulation Allergies No Known Drug Allergies Allergy (Unknown, Verified 03/08/24 13:06) Unknown Medication List - Last Reconciled 03/08/24 by Virginia Smallwood RN amoxicillin 2,000 mg PO ONCE inrlmaplzy-trkbhwsazddrr-svvr 50-325-40 mg 1 cap PO Q6H PRN cholecalciferol (vitamin D3) 50 mcg PO DAILY metoprolol succinate ER 50 mg PO DAILY metronidazole 0.75% appl topical BID sumatriptan succinate 50 mg PO Q2-4H PRN valsartan 40 mg PO DAILY warfarin 5 mg See Protocol PO DAILY Nursing Note INR 3.6?out of therapeutic range 2.5-3.5 Medications and supplements reviewed Patient status: well Medications or supplements: no changes Diet: pt believes he had too many foods from the list that raises the INR Denies any signs and symptoms of bleeding or clotting or unusual bruising Bleeding, bruising, clotting discussed Nutritional guidance given: to have a serving of greens today Dose: continue same dose of 5mg X 6 days and 2.5mg X 1 day () F/U INR Date : 3 weeks?? Patient verbalizing understanding of instructions given. 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 Illness/Depression: No Coding Level of Care Code Est Patient Level 1 Diagnoses Current use of anticoagulant therapy Z79.01 Assessment & Plan Assessment & Plan (1) Current use of anticoagulant therapy: Code(s): Z79.01 - emt intermediate (current) use of anticoagulants Category: Medical
== END 2024-03-08 13:22 | disposition home or self-care (01) ==
LOC: HO.ACS 09:21
PROVIDERS: PCP Internal Medicine; Visit Provider Internal Medicine
DX: Z79.01 Long term (current) use of anticoagulants (principal)

== ENCOUNTER → 2024-03-08 09:21 | Outpatient (BNVA) | payer BC, SELFPAY | PROVIDERS: PCP Internal Medicine; Visit Provider Internal Medicine | DX: Z95.2 Presence of prosthetic heart valve (principal); Z79.01 Long term (current) use of anticoagulants; Z51.81 Encounter for therapeutic drug level monitoring | CPT/HCPCS: 85610; 99211 ==

== ENCOUNTER 2024-03-29 12:59 | Outpatient (AMB) | payer BC, SELFPAY ==
[2024-03-29 13:06] LABS: ~PT, ~INR - Anti Coag Clinic 2.8 (0.9-1.1)
--- NOTE | 2024-03-29 13:18 | MHC.OFFVISCO ---
Intake Intake Visit Reasons: Anticoagulation Allergies No Known Drug Allergies Allergy (Unknown, Verified 03/29/24 13:01) Unknown Medication List - Last Reconciled 03/29/24 by Yenny Cardenas RN amoxicillin 2,000 mg PO ONCE tytauknsmw-syhwnnrwgzslc-bptc 50-325-40 mg 1 cap PO Q6H PRN cholecalciferol (vitamin D3) 50 mcg PO DAILY metoprolol succinate ER 50 mg PO DAILY metronidazole 0.75% appl topical BID sumatriptan succinate 50 mg PO Q2-4H PRN valsartan 40 mg PO DAILY warfarin 5 mg See Protocol PO DAILY Nursing Note INR: 2.8 in therapeutic range Medications and supplements reviewed No changes in health, diet, medications, or supplements, Denies any signs and symptoms of bleeding or bruising or clotting. Bleeding, bruising, clotting discussed Nutritional guidance given - CONTINUE THE GREENS YOU ENJOY - BROCCOLI AND ARUGALA Dose: 2.5MG X 1 DAY/ 5MG X 6 DAYS F/U INR: 1 MONTH Patient verbalizes understanding of instructions given Anti-Coag Initial Assessment Social Hx Patient Tobacco Use Status: Never used Tobacco alcohol intake: current Alcohol intake frequency: does not drink Cardiovascular Hx: Cardiomyopathy (mild per pt) and Other (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 Illness/Depression: No Coding Level of Care Code Est Patient Level 1 Diagnoses Current use of anticoagulant therapy Z79.01 Assessment & Plan Assessment & Plan (1) Current use of anticoagulant therapy: Code(s): Z79.01 - [place] (current) use of anticoagulants Category: Medical
== END 2024-03-29 13:21 | disposition home or self-care (01) ==
LOC: HO.ACS 12:59
PROVIDERS: PCP Internal Medicine; Visit Provider Internal Medicine
DX: Z79.01 Long term (current) use of anticoagulants (principal)

== ENCOUNTER → 2024-03-29 12:59 | Outpatient (BNVA) | payer BC, SELFPAY | PROVIDERS: PCP Internal Medicine; Visit Provider Internal Medicine | DX: Z95.2 Presence of prosthetic heart valve (principal); Z79.01 Long term (current) use of anticoagulants; Z51.81 Encounter for therapeutic drug level monitoring | CPT/HCPCS: 85610; 99211 ==

== ENCOUNTER 2024-04-26 13:01 | Outpatient (AMB) | payer BC, SELFPAY ==
[2024-04-26 13:06] LABS: Prothrombin Time Whole Bld POC 27.1 sec (11.1-13.5); ~PT, ~INR - Anti Coag Clinic 2.3 (0.9-1.1)
--- NOTE | 2024-04-26 13:12 | MHC.OFFVISCO ---
Intake Intake Visit Reasons: Anticoagulation Allergies No Known Drug Allergies Allergy (Unknown, Verified 04/26/24 13:01) Unknown Medication List - Last Reconciled 04/26/24 by Virginia Smallwood RN amoxicillin 2,000 mg PO ONCE htjdsaptnp-zdykszozvdudi-vves 50-325-40 mg 1 cap PO Q6H PRN cholecalciferol (vitamin D3) 50 mcg PO DAILY metoprolol succinate ER 50 mg PO DAILY metronidazole 0.75% appl topical BID sumatriptan succinate 50 mg PO Q2-4H PRN valsartan 40 mg PO DAILY warfarin 5 mg See Protocol PO DAILY Nursing Note INR: 2.3 out of therapeutic range 2.5-3.5 Medications and supplements reviewed No changes in health, diet, medications, or supplements, Denies any signs and symptoms of bleeding or bruising or clotting. Bleeding, bruising, clotting discussed Nutritional guidance given to avoid greens today Dose: 5mg today then increase dose to 5mg tomorrow (2.5mg) then resume usual dose of 5mg X 6 days and 2.5mg X 1 day F/U INR: 2 weeks Patient verbalizes understanding of instructions given Anti-Coag Initial Assessment Social Hx Patient Tobacco Use Status: Never used Tobacco alcohol intake: current Alcohol intake frequency: does not drink Cardiovascular Hx: Cardiomyopathy (mild per pt) and Other (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 Illness/Depression: No Coding Level of Care Code Est Patient Level 1 Diagnoses Current use of anticoagulant therapy Z79.01 Assessment & Plan Assessment & Plan (1) Current use of anticoagulant therapy: Code(s): Z79.01 - penitentiary (current) use of anticoagulants Category: Medical
--- OUTSIDE RECORDS SUMMARY | 2024-04-26 15:25 | XMS_ITS | Data Portability ---
Author Organization [facility], Endoscopy, [facility] Address [address] [place] [id number] Assessment No assessment recorded. Plan of Treatment Reminders Order Date Submit Date Provider Last Modified By Organization Details Last Modified Time Details Appointments None record ed. Lab None record ed. Referral None record ed. Procedures None record ed. Surgeries None record ed. Imaging None record ed. Medication Orders None record ed. Patient TargetsNo targets recorded. Patient InstructionsNo instructions recorded. Reason for Referral None Reported. Procedures Surgical History Date Name Laterality Status Provider Name and Address Organization Details Recorded Time 3 Lisa - Colonoscopy completed Farhad Gonzalez MD [address] [place] [address], [id number], [facility] 08/07/2022 07:53:41 Imaging Results None recorded. Procedure Notes None recorded. Medical Equipment None Reported. Allergies No known drug allergies Medications Name Sig Start Date Stop Date Status Note LastModified by Organization Details LastModified Time Lovenox active lovenox bridge Not Available Not Available Not Available warfarin active stopped 08/01 for procedure Not Available Not Available Not Available Imitrex active prn Not Available Not Avail able Not Available lisinopril active Not Available Not Av ailable Not Available metoprolol succinate active Not Available Not Available No t Available Fioricet active prn Not Available Not Avai lable Not Available Vitals None Recorded Social History None recorded. Functional Status None recorded. Mental Status None recorded. Family History Nothing Reported. Medical History No medical history recorded. Past Encounters Encounter ID Performer Location Encounter Start Date Encounter Closed Date Diagnosis/Indication Diagnosis SNOMED-CT Code Diagnosis ICD10 Code Diagnosis Note [id number] Lenora Fu [facility], [address] [address] 08/22/2015 09:13:19 08/22/2015 13:16:47 [id number] Roopa Rai RN Endoscopy , [address] [address] 08/07/2022 06:48:22 08/07/2022 12:50:35 Health Concerns Section Related Observation LastModified by Organization Detai ls LastModified Time None Recorded Concern Status LastModified by Organization Details LastModified Time None Recorded Advance Directives Directive None Recorded Payers Encounter Date Sequence Insurance Name Policy Number Policy [place] Covered Member ID [place] Member ID Guarantor Name 08/07/2022 1 [facility] [id number] Hayes [id number] Hayes
--- OUTSIDE RECORDS SUMMARY | 2024-04-26 15:26 | XMS_ITS | Data Portability ---
Author Organization [facility], , [facility] Address [address] [place] [address] Assessment No assessment recorded. Plan of Treatment [...] instructions recorded. Reason for Referral None Reported. Results Created Date Observation Date Name Description Value Unit Range Abnormal Flag Note LastModifiedBy Organization Detail LastModifiedTime Result Notes None recorded. Procedures Surgical History Date Name Laterality Status Provider Name and Address Organization Details Recorded Time 6 Lisa - Colonoscopy completed Farhad Gonzalez MD [address] [place] [address], [phone], [facility] 08/22/2015 11:24:04 Imaging Results None recorded. Procedure Notes None recorded. Medical Equipment None Reported. Medications Name Sig Start Date Stop Date Status Note LastModified by Organization Details LastModified Time amoxicillin 500 mg capsule active Not Available Not Available Not Available butalbital-a cetaminophen -caffeine 50 mg-325 mg-40 mg capsule TAKE 1 CAPSULE BY MOUTH EVERY 6 HOURS NEEDED active Not Available Not Available No t Available metoprolol succinate ER 50 mg tablet,exten ded release 24 hr active Not Available Not Available Not Available prochlorpera zine maleate 10 mg tablet active Not Available Not Available Not Available divalproex 500 mg tablet,delay ed release active Not Available Not Available N ot Available divalproex ER 500 mg tablet,exten ded release 24 hr active Not Available Not Available Not Available warfarin 5 mg tablet active Not Available Not Available No t Available metronidazol e 0.75 % topical cream APPLY THIN LAYER TOPICALLY TO THE AFFECTED AREA OF FACE TWICE DAILY UNTIL RESOLVED active Not Available Not Available No t Available mupirocin calcium 2 % topical cream active Not Available Not Available Not Available Citrate of Magnesia oral take as directed active Not Available Not Available No t Available bisacodyl 5 mg tablet,delay ed release TAKE 4 TABLETS BY MOUTH WITH 8 OZ OF WATER DAY BEFORE PROCEDURE active Not Available Not Available No t Available lisinopril 2.5 mg tablet active Not Available Not Available Not Available enoxaparin 60 mg/0.6 mL subcutaneous syringe active Not Available Not Available Not Available enoxaparin 80 mg/0.8 mL subcutaneous syringe INJECT 75 MG DIRECTED EVERY 12 HOURS active Not Available Not Available No t Available Laxative (bisacodyl) 5 mg tablet TAKE 4 TABLETS BY MOUTH FOR 1 DOSE active Not Available Not Available No t Available GaviLyte-G 236 gram-22.74 gram-6.74 gram-5.86 gram oral solution MIX AND DRINK DIRECTED active Not Available Not Available No t Available Paxlovid 300 mg (150 mg x 2)-100 mg tablets in a dose pack TAKE 2 NIRMATREVLI R AND 1 RITONAVIR TWICE DAILY FOR 5 DAYS active Not Available Not Available N ot Available Vitals None Recorded Social History None recorded. Functional Status None recorded. Mental Status None recorded. Family History Nothing Reported. Medical History No medical history recorded. Past Encounters Encounter ID Performer Location Encounter Start Date Encounter Closed Date Diagnosis/Indication Diagnosis SNOMED-CT Code Diagnosis ICD10 Code Diagnosis Note [id number] Lenora Fu [facility], [address] [address] 08/22/2015 09:13:19 08/22/2015 13:16:47 [id number] Roopa Rai RN Endoscopy , [address] [address] 08/07/2022 06:48:22 08/07/2022 12:50:35 Health Concerns Section Related Observation LastModified by Organization Detai ls LastModified Time None Recorded Concern Status LastModified by Organization Details LastModified Time None Recorded Advance Directives Directive None Recorded Payers Encounter Date Sequence Insurance Name Policy Number Policy [place] Covered Member ID [place] Member ID Guarantor Name 08/22/2015 1 [facility] [id number] Bi Hayes [id number] Bi Hayes
== END 2024-04-26 13:15 | disposition home or self-care (01) ==
LOC: HO.ACS 13:01
PROVIDERS: PCP Internal Medicine; Visit Provider Internal Medicine
DX: Z79.01 Long term (current) use of anticoagulants (principal)

== ENCOUNTER → 2024-04-26 13:01 | Outpatient (BNVA) | payer BC, SELFPAY | PROVIDERS: PCP Internal Medicine; Visit Provider Internal Medicine | DX: Z95.2 Presence of prosthetic heart valve (principal); Z79.01 Long term (current) use of anticoagulants; Z51.81 Encounter for therapeutic drug level monitoring | CPT/HCPCS: 85610; 99211 ==

== ENCOUNTER 2024-05-10 13:02 | Outpatient (AMB) | payer BC, SELFPAY ==
[2024-05-10 13:08] LABS: Prothrombin Time Whole Bld POC 41.1 sec (11.1-13.5); ~PT, ~INR - Anti Coag Clinic 3.4 (0.9-1.1)
--- NOTE | 2024-05-10 13:08 | MHC.OFFVISCO ---
Intake Intake Visit Reasons: Anticoagulation Allergies No Known Drug Allergies Allergy (Unknown, Verified 05/10/24 13:03) Unknown Medication List - Last Reconciled 05/10/24 by Virginia Smallwood RN amoxicillin 2,000 mg PO ONCE rveriepdbn-ufbsoeyetwaqg-rqlj 50-325-40 mg 1 cap PO Q6H PRN cholecalciferol (vitamin D3) 50 mcg PO DAILY metoprolol succinate ER 50 mg PO DAILY metronidazole 0.75% appl topical BID sumatriptan succinate 50 mg PO Q2-4H PRN valsartan 40 mg PO DAILY warfarin 5 mg See Protocol PO DAILY Nursing Note INR: 3.4 in therapeutic range of 2.5-3.5 Medications and supplements reviewed No changes in health, diet, medications, or supplements, Denies any signs and symptoms of bleeding or bruising or clotting. 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 Illness/Depression: No Coding Level of Care Code Est Patient Level 1 Diagnoses Current use of anticoagulant therapy Z79.01 Assessment & Plan Assessment & Plan (1) Current use of anticoagulant therapy: Code(s): Z79.01 - assisted (current) use of anticoagulants Category: Medical
--- OUTSIDE RECORDS SUMMARY | 2024-05-10 17:39 | XMS_ITS | Data Portability ---
Author Organization [facility], , [facility] Address [address] [place] [address] Assessment No assessment recorded. Plan of Treatment [...] Lisa - Colonoscopy completed Farhad Gonzalez MD [address] [place] [address], [phone], [facility] 08/22/2015 11:24:04 Imaging Results None recorded. Procedure [...] SNOMED-CT Code Diagnosis ICD10 Code Diagnosis Note [id number] Lenora Fu [facility], [address] [address] 08/22/2015 09:13:19 08/22/2015 13:16:47 [id number] Roopa Rai RN Endoscopy , [address] [address] 08/07/2022 06:48:22 08/07/2022 12:50:35 Health Concerns Section Related Observation LastModified by Organization Detai ls LastModified Time None Recorded Concern Status LastModified by Organization Details LastModified Time None Recorded Advance Directives Directive None Recorded Payers Encounter Date Sequence Insurance Name Policy Number Policy [place] Covered Member ID [place] Member ID Guarantor Name 08/22/2015 1 [facility] [id number] Bi Hayes [id number] Bi Hayes
--- OUTSIDE RECORDS SUMMARY | 2024-05-10 17:40 | XMS_ITS | Data Portability ---
Author Organization [facility], Endoscopy, [facility] Address [address] [place] [phone] Assessment No assessment recorded. Plan of Treatment [...] Lisa - Colonoscopy completed Farhad Gonzalez MD [address] [place] [address], [phone], [facility] 08/07/2022 07:53:41 Imaging Results None recorded. Procedure [...] SNOMED-CT Code Diagnosis ICD10 Code Diagnosis Note [id number] Lenora Fu [facility], [address] [address] 08/22/2015 09:13:19 08/22/2015 13:16:47 [id number] Roopa Rai RN Endoscopy , [address] [address] 08/07/2022 06:48:22 08/07/2022 12:50:35 Health Concerns Section Related Observation LastModified by Organization Detai ls LastModified Time None Recorded Concern Status LastModified by Organization Details LastModified Time None Recorded Advance Directives Directive None Recorded Payers Encounter Date Sequence Insurance Name Policy Number Policy [place] Covered Member ID [place] Member ID Guarantor Name 08/07/2022 1 [facility] [id number] Bi Hayes [id number] Bi Hayes
== END 2024-05-10 13:12 | disposition home or self-care (01) ==
LOC: HO.ACS 13:02
PROVIDERS: PCP Internal Medicine; Visit Provider Internal Medicine
DX: Z79.01 Long term (current) use of anticoagulants (principal)

== ENCOUNTER → 2024-05-10 13:02 | Outpatient (BNVA) | payer BC, SELFPAY | PROVIDERS: PCP Internal Medicine; Visit Provider Internal Medicine | DX: Z95.2 Presence of prosthetic heart valve (principal); Z79.01 Long term (current) use of anticoagulants; Z51.81 Encounter for therapeutic drug level monitoring | CPT/HCPCS: 85610; 99211 ==

== ENCOUNTER 2024-06-10 15:58 | Outpatient (AMB) | payer BC, SELFPAY ==
--- NOTE | 2024-06-10 16:08 | MHC.OFFVISCO ---
Intake Intake Visit Reasons: Anticoagulation Allergies No Known Drug Allergies Allergy (Unknown, Verified 06/10/24 15:58) Unknown Medication List - Last Reconciled 06/10/24 by Virginia Smallwood RN amoxicillin 2,000 mg PO ONCE aoclvmbdew-rgaosqnyqnsdt-nfxn 50-325-40 mg 1 cap PO Q6H PRN cholecalciferol (vitamin D3) 50 mcg PO DAILY metoprolol succinate ER 50 mg PO DAILY metronidazole 0.75% appl topical BID sumatriptan succinate 50 mg PO Q2-4H PRN valsartan 40 mg PO DAILY warfarin 5 mg See Protocol PO DAILY Nursing Note INR: 1.9?out of therapeutic range of 2.5-3.5 Medications and supplements reviewed Patient status: well Medications or supplements: no changes Diet: usual diet but pt states he has been eating out and the greens have been darker then usual greens pt consumes. Denies any signs and symptoms of bleeding or clotting or unusual bruising Bleeding, bruising, clotting discussed Nutritional guidance given: avoid greens today and to have a serving or two of foods that raise the INR. Food list reviewed. Dose: increase today's dose to 7.5mg (5mg) and increase tomorrow's dose to 7.5mg (5mg) then resume usual dose of 5mg X 6 days and 2.5mg X 1 day () F/U INR Date : 1 week?? Patient verbalizing understanding of instructions given. 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 Illness/Depression: No Coding Level of Care Code Est Patient Level 1 Diagnoses Current use of anticoagulant therapy Z79.01 Results AMB INR Fingerstick AMB INR Fingerstick 1.9 Last Edit by Virginia Smallwood RN on 06/10/24 16:03 interface delay Assessment & Plan Assessment & Plan (1) Current use of anticoagulant therapy: Code(s): Z79.01 - prison (current) use of anticoagulants Category: Medical
[2024-06-10 16:10] LABS: Prothrombin Time Whole Bld POC 23.3 sec (11.1-13.5); ~PT, ~INR - Anti Coag Clinic 1.9 (0.9-1.1)
--- OUTSIDE RECORDS SUMMARY | 2024-06-10 19:13 | XMS_ITS | Continuity of Care Document ---
Author Organization [facility] Address [address] [place] [phone]- Care Team Providers Care Plaster Block Layer Name Role Phone Jose CEE, Feliberto Neal Primary Care Physician Encounter [facility] Date(s): 05/12/24 - 05/19/24 [facility] [address] [place] [phone]- Encounter Diagnosis AVR - Aortic valve replacement(Discharge Diagnosis) - 05/12/24 Cardiomyopathy(Discharge Diagnosis) - 05/12/24 Attending Physician: Harmeet Muñoz MD Encounter Type: Office Visit Allergies, Adverse Reactions, Alerts Substance Criticality Severity Reaction Reaction Severity Status Cats Active Medications amoxicillin 500 mg oral capsule 4 capsule = 2,000 mg, By Mouth, Once, PRN Other, given 1 hour prior to the procedure, 0 Refills, Maintenance, 01/13/13 3:23:43 PM EDT Start Date: 01/13/13 Status: Ordered Repeat number: 1 CPAP Machine See Instructions, # 1 each, Maintenance, AutoCPAP 8-20, 06/17/17 2:23:00 PM EST, Compound Start Date: 06/17/17 Status: Ordered Quantity: 1.0 Unit: each Repeat number: 1 Fioricet Tablet By Mouth, 1 tablet as needed, 0 Refills, Maintenance, 01/08/12 3:02:35 PM EDT Start Date: 01/08/12 Status: Ordered Repeat number: 1 Metoprolol Succinate ER 50 mg oral tablet, extended release 1 tablet, By Mouth, Daily, # 90 tablet, 3 Refills, Maintenance, 05/14/23 4:27:00 PM EST, [facility], 175.26, cm, 05/05/23 8:22:00 EST, Height Start Date: 05/14/23 Stop Date: 05/08/24 Status: Ordered Quantity: 90.0 Unit: tablet Repeat number: 4 SUMAtriptan 50 mg oral tablet 1 tablet = 50 mg, TAKE 1 TABLET BY MOUTH EVERY 2 HOURS IF NEEDED. MAX 2 PER DAY, 4 PER WEEK Start Date: 01/11/20 Status: Ordered Repeat number: 1 valsartan 40 mg oral tablet 40 mg, 1, tablet, By Mouth, Daily, # 90 tablet, Refills 3, Tot. Refills 3, Maintenance, 05/14/23 4:28:00 PM EST, Route to Pharmacy Electronically, [facility], Partial fill upon patient request if the prescription is for a schedule II opioid drug., 175.26, cm, 05/05/23 8:22:[address], Height Start Date: 05/14/23 Stop Date: 05/08/24 Status: Ordered Quantity: 90.0 Unit: tablet Repeat number: 4 Vitamin D3 2000 intl units oral tablet 1 tablet = 2,000 International_Units, By Mouth, Daily, 0 Refills, Maintenance, 02/28/16 8:42:51 AM EST Start Date: 02/28/16 Status: Ordered Repeat number: 1 Warfarin Daily, Maintenance, 01/01/11 4:59:13 PM EDT Start Date: 01/01/11 Status: Ordered Repeat number: 1 Problem List Condition Confirmation Course Effective Dates Status Health atus Informant AVR - Aortic valve replacement Confirmed 1998 Active Migraines Confirmed Active Obstructive sleep apnea Confirmed Active Diagnosis Diagnosis Type Effective Dates Health Status Clinical Service Informant AVR - Aortic valve replacement Discharge Diagnosis 05/12/24 Cardiomyopathy Discharge Diagnosis 05/12/24 Vital Signs Most recent to oldest [Reference Range]: 1 Height 175.26 cm (05/12/24 10:54 AM) Weight 77.3 kg (05/12/24 10:54 AM) Oxygen Saturation [94-100 %] 100 % (05/12/24 10:54 AM) Pulse Rate [55-90 bpm] 68 bpm (05/12/24 10:54 AM) Body Mass Index [18.5-24.99 kg/m2] 25.17 kg/m2 *H* (05/12/24 10:54 AM) Blood Pressure [90-138/55-84 mm Hg] 133/ 86mm Hg (05/12/24 10:54 AM) Mode of Delivery (Oxygen) Room air (05/12/24 10:54 AM) Blood pressure sites Arm, left (05/12/24 10:54 AM) Weight Obtained Via Bed scale (05/12/24 10:54 AM) Social History Social History Type Response Smoking Status Never smoker; Tobacc o user in household: No entered on: 02/28/16 Sex Sex Representation Male (finding) EKG study * Event Display: ECG 12-Lead Authored Date: Please click on pdf link to open report * Event Display: ECG 12-Lead Authored Date: Ventricular Rate: 64 BPM Atrial Rate: 64 BPM P-R Interval: 128 ms QRS Duration: 106 ms Q-T Interval: 438 ms QTC Calculation(Bazett): 451 ms P Beaver: 7 degrees R Beaver: -2 degrees T Beaver: 59 degrees Sinus rhythm with occasional Premature ventricular complexes Incomplete right bundle branch block Minimal voltage criteria for LVH, may be normal variant ( [place]art product ) Borderline ECG When compared with ECG of 26-Feb-2023 08:54, Premature ventricular complexes are now Present Confirmed by ALEJANDRO PERALES MD ([id number]) on 05/12/2024 7:48:44 PM [place]: ALEJANDRO PERALES MD Note * Janie Blanca: PERFORM Event Display: Patient Education/Instruction Authored Date: [id number] Ambulatory Adult Visit Summary [facility] [address] [place] [address] Name: TABITHA MCDANIELTRISTIN : 1965?? Visit: 05/12/2024 10:51?? Ambulatory Visit Instructions ?? Your Care Team Primary Care Provider Jose CEE, Feliberto Neal? This Visit Provider Harmeet Muñoz MD Your Diagnosis Long QT interval Cardiomyopathy Vitals Signs Pulse Rate: 68 bpm Height: 175.26 cm Systolic Blood Pressure: 133 mm Hg Weight: 77.3 kg Diastolic Blood Pressure:??86 mm Hg??High Body Mass Index:??25.17 kg/m2??High Oxygen Saturation: 100 % Body surface area: 1.94 What to do next Follow-Up Appointments Follow up Appointment - Ordered?-- 1 year, 05/12/24 11:49:00 EST Medications The list below reflects the information in our records and provided by you today along with any changes made during this visit. Please continue your medications until treatment is completed or stopped by your provider. If this is different from the information you have or there are other questions,please contact the prescribing provider. What How Much When Instructions Unchanged Acetaminophen/ Butalbital/ Caffeine (Fioricet Tablet) Oral 1 tablet as needed ?? Unchanged Amoxicillin (amoxicillin 500 mg oral capsule) 4 capsule Oral Once as needed for Other Duration: 1 doses/times given 1 hour prior to the procedure ?? Unchanged Cholecalciferol (Vitamin D3 2000 intl units oral tablet) 1 tab(s) Oral Daily Unchanged Durable Medical Equipment (CPAP Machine) See instructions AutoCPAP 8-20 ?? Unchanged Metoprolol (Metoprolol Succinate ER 50 mg oral tablet, extended release) 1 tab(s) Oral Daily Duration: 90 Days Unchanged Sumatriptan (SUMAtriptan 50 mg oral tablet) 1 tab(s) TAKE 1 TABLET BY MOUTH EVERY 2 HOURS IF NEEDED. MAX 2 PER DAY, 4 PER WEEK ?? Unchanged Valsartan (valsartan 40 mg oral tablet) 1 tab(s) Oral Daily Duration: 90 Days Unchanged Warfarin Daily Medications and Immunizations Administered Medications Given During Visit No medications given during this visit.?? Allergies (NKA means No Known Allergies) Cats Common Emergency Awareness Tips IS IT A STROKE? Act FAST and Check for these signs: FACE Does the face look uneven? ARM Does one arm drift down? SPEECH Does their speech sound strange? TIME Call at any sign of stroke ?? Heart Attack Signs Chest discomfort: Most heart attacks involve discomfort in the center of the chest and lasts more than a few minutes, or goes away and comes back. It can feel like uncomfortable pressure, squeezing, fullness or pain. Discomfort in upper body: Symptoms can include pain or discomfort in one or both arms, back, neck, jaw or stomach. Shortness of breath: With or without discomfort. Other signs: Breaking out in a cold sweat, nausea, or lightheaded. Remember, MINUTES DO MATTER. If you experience any of these heart attack warning signs, call to get immediate medical attention! ?? Smoking can increase your chances of developing chronic health problems and can cause harmful effects to other family members in your house. If you smoke, you are strongly encouraged to quit. Please call [employer] at [phone] or [phone] ([phone]) or log in to [email or web address] for referrals to smoking cessation programs. ?? The National Suicide Prevention Hotline is available 04/11 if you or someone you know needs to find a reason to keep living. By calling 8-635-051-Hyperpia (9369) you'll be connected to a skilled, trained counselor at a crisis center in your area. [facility] [employer] Portal You can view and manage your care through the patient portal or by using a health care judith of your choosing. [employer] is a website that allows you to securely view your medical information including your hospital discharge summary, office visit summaries, medications and follow-up visits. You can also request appointments, renew medications, and request access to your medical information using a health care judith of your choosing, or just ask a question. You can enroll at [email or web address] or register during your next office visit. [facility], in keeping with [facility] guidance, no longer requires face masks for staff, patientsor visitors in most situations. Similiar to time spent indoors at other locations, there is the chance that you were exposed to repiratory viruses during your time with us (such as flu or COVID-19). If you develop symptoms concerning for a viral respiratory infection, please seek testing (and treatment if indicated) from your medical provider or home test kit. ?? Disclaimer: The information provided is of a general nature and is intended to be used in conjunction with the recommendations and advice of your health care practitioner. Every effort has been made to ensure that the information provided is accurate and complete at the time it is provided to you however, as your needs change, or, as new information becomes available, different or additional instructions may be required. ?? If you have questions, please consult with your primary care provider or pharmacist, as appropriate. This information is not intended to serve as substitution for assessment and evaluation by a qualified health care provider. If you do not have a primary care provider, you may find a [facility] [employer] provider by calling [employer] at [phone]. Patient Care team information Care Team Personnel Name: Feliberto Garcia MD Position: Reference Physician Member Role: PCP Address: [address] [place] [phone]- [place] [employer]: Name: Brandon Reddy MD Position: [facility] Card[facility] MD Member Role: [employer] Consulting Physician Address: [address], 1st floor [facility] [place] [address]- Tele[employer]: Care Team Related Persons Name: TANYA BISHOP Insurance Providers Guarantor name: TABITHA BISHOP Health Plan Information #: 2 Payer: SELF PAY INSURANCE Member Number: NA Policy Number: NA Group Number: NA Health Plan Information #: 1 Payer: [employer] Member Number: [id number] Policy Number: NA Group Number: NA
--- OUTSIDE RECORDS SUMMARY | 2024-06-10 19:13 | XMS_ITS | Data Portability ---
Author Organization [facility], Endoscopy, [facility] Address [address] [place] [phone] Assessment No assessment recorded. Plan of Treatment [...] Lisa - Colonoscopy completed Farhad Gonzalez MD [address] [place] [address], [phone], [facility] 08/07/2022 07:53:41 Imaging Results None recorded. Procedure [...] SNOMED-CT Code Diagnosis ICD10 Code Diagnosis Note [id number] Lenora Fu [facility], [address] [address] 08/22/2015 09:13:19 08/22/2015 13:16:47 [id number] Roopa Rai RN Endoscopy , [address] [address] 08/07/2022 06:48:22 08/07/2022 12:50:35 Health Concerns Section Related Observation LastModified by Organization Detai ls LastModified Time None Recorded Concern Status LastModified by Organization Details LastModified Time None Recorded Advance Directives Directive None Recorded Payers Encounter Date Sequence Insurance Name Policy Number Policy [place] Covered Member ID [place] Member ID Guarantor Name 08/07/2022 1 [facility] [id number] Bi Hayes [id number] Bi Hayes
--- OUTSIDE RECORDS SUMMARY | 2024-06-10 19:13 | XMS_ITS | Data Portability ---
Author Organization [facility], , [facility] Address [address] [place] [address] Assessment No assessment recorded. Plan of Treatment [...] Lisa - Colonoscopy completed Farhad Gonzalez MD [address] [place] [address], [phone], [facility] 08/22/2015 11:24:04 Imaging Results None recorded. Procedure [...] SNOMED-CT Code Diagnosis ICD10 Code Diagnosis Note [id number] Lenora Fu [facility], [address] [address] 08/22/2015 09:13:19 08/22/2015 13:16:47 [id number] Roopa Rai RN Endoscopy , [address] [address] 08/07/2022 06:48:22 08/07/2022 12:50:35 Health Concerns Section Related Observation LastModified by Organization Detai ls LastModified Time None Recorded Concern Status LastModified by Organization Details LastModified Time None Recorded Advance Directives Directive None Recorded Payers Encounter Date Sequence Insurance Name Policy Number Policy [place] Covered Member ID [place] Member ID Guarantor Name 08/22/2015 1 [facility] [id number] Bi Hayes [id number] 1 Bi Hayes
== END 2024-06-10 16:19 | disposition home or self-care (01) ==
LOC: HO.ACS 15:58
PROVIDERS: PCP Internal Medicine; Visit Provider Internal Medicine
DX: Z79.01 Long term (current) use of anticoagulants (principal)

== ENCOUNTER → 2024-06-10 15:58 | Outpatient (BNVA) | payer BC, SELFPAY | PROVIDERS: PCP Internal Medicine; Visit Provider Internal Medicine | DX: Z95.2 Presence of prosthetic heart valve (principal); Z79.01 Long term (current) use of anticoagulants; Z51.81 Encounter for therapeutic drug level monitoring | CPT/HCPCS: 85610; 99211 ==

== ENCOUNTER 2024-06-17 11:32 | Outpatient (AMB) | payer BC, SELFPAY ==
[2024-06-17 11:42] LABS: Prothrombin Time Whole Bld POC 33.4 sec (11.1-13.5); ~PT, ~INR - Anti Coag Clinic 2.8 (0.9-1.1)
--- NOTE | 2024-06-17 11:48 | MHC.OFFVISCO ---
Intake Intake Visit Reasons: Anticoagulation Allergies No Known Drug Allergies Allergy (Unknown, Verified 06/17/24 11:38) Unknown Medication List - Last Reconciled 06/17/24 by Yenny Cardenas RN amoxicillin 2,000 mg PO ONCE vqnnmnaveq-burkanxgsecfx-hlek 50-325-40 mg 1 cap PO Q6H PRN cholecalciferol (vitamin D3) 50 mcg PO DAILY metoprolol succinate ER 50 mg PO DAILY metronidazole 0.75% appl topical BID sumatriptan succinate 50 mg PO Q2-4H PRN valsartan 40 mg PO DAILY warfarin 5 mg See Protocol PO DAILY Nursing Note INR: 2.8 in therapeutic range- Previous INR was 1.9 - pt states from eating too many greens Medications and supplements reviewed No changes in health, diet, medications, or supplements, Denies any signs and symptoms of bleeding or bruising or clotting. 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 Illness/Depression: No Questionnaires HAS-BLED Does the patient had uncontrolled Hypertension?: No Does the patient have renal disease?: No Does the patient have liver disease?: No Does the patient have a history of stroke?: No Has the patient had major bleeding or predisposition to bleeding?: No Does the patient have labile INRs?: No Is the patient over 65 years of age?: No Is the patient on medications that gives them a predisposition to bleeding?: Yes Does the patient use alcohol?: No HAS-BLED Score: 1 CHADSVASC Age: <65 Gender: Male Does the patient have a history of CHF?: No Does the patient have a history of Hypertension?: No Does the patient have a history of Stroke/TIA/Thromboembolism?: No Does the patient have a history of Vascular Disease (prior AR, PAD or aortic plaque)?: Yes Does the patient have a history of Diabetes?: No CHADS VACS Score: 1 Robbie Prediction Score Rsk VTE Active Cancer: No Previous VTE, excluding superficial vein thrombosis: No Reduced mobility: No Already known Thrombophilic Condition: No With-in last month Trauma and/or Surgery: No Elderly 70 year or older: No Heart and/or Respiratory Failure: No Acute Myocardial infarction and/or Ischemic Stroke: No Acute Infection and/or Rheumatologic Disorder: No Obesity (BMI 30 or greater): No Ongoing Hormonal Treatment: No .: Cholesterol and mechanical heart valve Score: 1 (1 for cholesterol and mechanical heart valve and cardiomyopathy ) Robbie Score less than 4; Low Risk of VTE Robbie Score 4 or greater; High Risk of VTE Coding Level of Care Code Est Patient Level 1 Diagnoses Current use of anticoagulant therapy Z79.01 Assessment & Plan Assessment & Plan (1) Current use of anticoagulant therapy: Code(s): Z79.01 - [facility] (current) use of anticoagulants Category: Medical
--- OUTSIDE RECORDS SUMMARY | 2024-06-17 14:11 | XMS_ITS | Data Portability ---
Author Organization [facility], , [facility] Address [address] [place] [address] Assessment No assessment recorded. Plan of Treatment [...] Lisa - Colonoscopy completed Farhad Gonzalez MD [address] [place] [address], [phone], [facility] [place], [place] 08/22/2015 11:24:04 Imaging Results None recorded. Procedure [...] SNOMED-CT Code Diagnosis ICD10 Code Diagnosis Note [id number] Lenora Fu [facility], [address] [address] 08/22/2015 09:13:19 08/22/2015 13:16:47 [id number] Roopa Rai RN Endoscopy , [address] [address] 08/07/2022 06:48:22 08/07/2022 12:50:35 Health Concerns Section Related Observation LastModified by Organization Detai ls LastModified Time None Recorded Concern Status LastModified by Organization Details LastModified Time None Recorded Advance Directives Directive None Recorded Payers Encounter Date Sequence Insurance Name Policy Number Policy [place] Covered Member ID [place] Member ID Guarantor Name 08/22/2015 1 [facility] [id number] Bi Hayes [id number] Bi Hayes
--- OUTSIDE RECORDS SUMMARY | 2024-06-17 14:11 | XMS_ITS | Data Portability ---
Author Organization [facility], Endoscopy, [facility] Address [address] [place] [phone] Assessment No assessment recorded. Plan of Treatment [...] Lisa - Colonoscopy completed Farhad Gonzalez MD [address] [place] [address], [phone], [facility] 08/07/2022 07:53:41 Imaging Results None recorded. Procedure [...] SNOMED-CT Code Diagnosis ICD10 Code Diagnosis Note [id number] Lenora Fu [facility], [address] [address] 08/22/2015 09:13:19 08/22/2015 13:16:47 [id number] Roopa Rai RN Endoscopy , [address] [address] 08/07/2022 06:48:22 08/07/2022 12:50:35 Health Concerns Section Related Observation LastModified by Organization Detai ls LastModified Time None Recorded Concern Status LastModified by Organization Details LastModified Time None Recorded Advance Directives Directive None Recorded Payers Encounter Date Sequence Insurance Name Policy Number Policy [place] Covered Member ID [place] Member ID Guarantor Name 08/07/2022 1 [facility] [id number] Bi Hayes [id number] Bi Hayes
--- OUTSIDE RECORDS SUMMARY | 2024-06-17 14:11 | XMS_ITS | Continuity of Care Document ---
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 Name Role Phone Feliberot Garcia MD Primary Care Physician Encounter [facility] Date(s): 05/12/24 - 06/11/24 [facility] [address] [place] [phone]- Attending Physician: Filipe Wahl Admitting Physician: Filipe Wahl Referring Physician: Filipe Wahl Encounter Type: Triage Allergies, Adverse Reactions, Alerts Substance Criticality Severity [...] ER 50 mg oral tablet, extended release 1, tablet, By Mouth, Daily, # 90 tablet, Refills 3, Maintenance, 05/20/24 8:05:00 AM EST, Route to Pharmacy Electronically, [facility], 175.26, cm, 05/12/24 10:54:00 EST, Height Start Date: 05/20/24 Status: Ordered Quantity: 90.0 Unit: tablet Repeat number: 1 SUMAtriptan 50 mg oral tablet 1 tablet = 50 mg, TAKE 1 TABLET BY MOUTH EVERY 2 HOURS IF NEEDED. MAX 2 PER DAY, 4 PER WEEK Start Date: 01/11/20 Status: Ordered Repeat number: 1 valsartan 40 mg oral tablet 1, tablet, By Mouth, Daily, # 90 tablet, Refills 3, Maintenance, 05/20/24 8:07:00 AM EST, Route to Pharmacy Electronically, [facility], 175.26, cm, 05/12/24 10:54:00 EST, Height Start Date: 05/20/24 Status: Ordered Quantity: 90.0 Unit: tablet Repeat number: 1 Vitamin D3 2000 intl units oral tablet 1 tablet = 2,000 International_Units, By Mouth, Daily, 0 Refills, Maintenance, 02/28/16 8:42:51 AM EST Start Date: 02/28/16 Status: Ordered Repeat number: 1 Warfarin Daily, Maintenance, 01/01/11 4:59:13 PM EDT Start Date: 01/01/11 Status: Ordered Repeat number: 1 Problem List Condition Confirmation Course Effective Dates Status Health St [facility] Informant AVR - Aortic valve replacement Confirmed 1997 Active Migraines Confirmed Active Obstructive sleep apnea Confirmed Active Social History Social History Type Response Smoking Status Never smoker; Tobacc o user in household: No entered on: 02/28/16 Sex Sex Representation Male (finding) Patient Care team information Care Team Personnel Name: Feliberto Garcia MD Position: Reference Physician Member Role: PCP Address: [address] [place] [address] [place] [phone]- Telecom: Name: Brandon Reddy MD Position: [facility] Cardiology MD Member Role: Lifetime Consulting Physician Address: [address] [facility], 1st floor [facility] [place] [address]- QQ Telecom: Care Team Related Persons Name: TANYA BISHOP Insurance Providers Guarantor name: TABITHA BISHOP Health Plan Information #: 1 Payer: [employer] Member Number: NA Policy Number: NA Group Number: NA
== END 2024-06-17 11:54 | disposition home or self-care (01) ==
LOC: HO.ACS 11:32
PROVIDERS: PCP Internal Medicine; Visit Provider Internal Medicine
DX: Z79.01 Long term (current) use of anticoagulants (principal)

== ENCOUNTER → 2024-06-17 11:32 | Outpatient (BNVA) | payer BC, SELFPAY | PROVIDERS: PCP Internal Medicine; Visit Provider Internal Medicine | DX: Z95.2 Presence of prosthetic heart valve (principal); Z79.01 Long term (current) use of anticoagulants; Z51.81 Encounter for therapeutic drug level monitoring | CPT/HCPCS: 85610; 99211 ==

== ENCOUNTER 2024-07-12 13:16 | Outpatient (AMB) | payer BC, SELFPAY ==
--- NOTE | 2024-07-12 13:41 | MHC.OFFVISCO ---
Intake Intake Visit Reasons: Anticoagulation Allergies No Known Drug Allergies Allergy (Unknown, Verified 07/12/24 13:26) Unknown Medication List - Last Reconciled 07/12/24 by Virginia Smallwood RN amoxicillin 2,000 mg PO ONCE qwxlwaucme-owuzmrmqrowyd-naer 50-325-40 mg 1 cap PO Q6H PRN cholecalciferol (vitamin D3) 50 mcg PO DAILY metoprolol succinate ER 50 mg PO DAILY metronidazole 0.75% appl topical BID sumatriptan succinate 50 mg PO Q2-4H PRN valsartan 40 mg PO DAILY warfarin 5 mg See Protocol PO DAILY Nursing Note INR: 3.1 in therapeutic range 2.5-3.5 Medications and supplements reviewed No changes in health, diet, medications, or supplements, Denies any signs and symptoms of bleeding or bruising or clotting. 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 Illness/Depression: No Coding Level of Care Code Est Patient Level 1 Diagnoses Current use of anticoagulant therapy Z79.01 Results AMB INR Fingerstick AMB INR Fingerstick 3.1 Last Edit by Virginia Smallwood RN on 07/12/24 13:36 interface delay Assessment & Plan Assessment & Plan (1) Current use of anticoagulant therapy: Code(s): Z79.01 - [facility] (current) use of anticoagulants Category: Medical
[2024-07-12 13:48] LABS: Prothrombin Time Whole Bld POC 37.6 sec (11.1-13.5); ~PT, ~INR - Anti Coag Clinic 3.1 (0.9-1.1)
--- OUTSIDE RECORDS SUMMARY | 2024-07-12 14:58 | XMS_ITS | Data Portability ---
Author Organization [facility], , [facility] Address [address] [place] [address] Assessment No assessment recorded. Plan of Treatment [...] Lisa - Colonoscopy completed Farhad Gonzalez MD [address] [place] [address], [phone], [facility] [place] 11:24:04 Imaging Results None recorded. Procedure [...] SNOMED-CT Code Diagnosis ICD10 Code Diagnosis Note [id number] Lenora Fu [facility], [address] [address] 08/22/2015 09:13:19 08/22/2015 13:16:47 [id number] Roopa Rai RN Endoscopy , [address] [address] 08/07/2022 06:48:22 08/07/2022 12:50:35 Health Concerns Section Related Observation LastModified by Organization Detai ls LastModified Time None Recorded Concern Status LastModified by Organization Details LastModified Time None Recorded Advance Directives Directive None Recorded Payers Encounter Date Sequence Insurance Name Policy Number Policy [place] Covered Member ID [place] Member ID Guarantor Name 08/22/2015 1 [facility] [place] [id number] Bi Hayes [id number] Bi Hayes
--- OUTSIDE RECORDS SUMMARY | 2024-07-12 14:58 | XMS_ITS | Data Portability ---
Author Organization [facility], Endoscopy, [facility] Address [address] [place] [phone] Assessment No assessment recorded. Plan of Treatment [...] Lisa - Colonoscopy completed Farhad Gonzalez MD [address] [place] [address], [phone], [facility]07/2022 07:53:41 Imaging Results None recorded. Procedure [...] SNOMED-CT Code Diagnosis ICD10 Code Diagnosis Note [id number] Lenora Fu [facility], [address] [address] 08/22/2015 09:13:19 08/22/2015 13:16:47 [id number] Roopa Rai RN Endoscopy , [address] [address] 08/07/2022 06:48:22 08/07/2022 12:50:35 Health Concerns Section Related Observation LastModified by Organization Detai ls LastModified Time None Recorded Concern Status LastModified by Organization Details LastModified Time None Recorded Advance Directives Directive None Recorded Payers Encounter Date Sequence Insurance Name Policy Number Policy [place] Covered Member ID [place] Member ID Guarantor Name 08/07/2022 1 [facility] [place] [id number] Bi Hayes [id number] Bi Hayes
== END 2024-07-12 13:43 | disposition home or self-care (01) ==
LOC: HO.ACS 13:16
PROVIDERS: PCP Internal Medicine; Visit Provider Internal Medicine Medical Oncology
DX: Z79.01 Long term (current) use of anticoagulants (principal)

== ENCOUNTER → 2024-07-12 13:16 | Outpatient (BNVA) | payer BC, SELFPAY | PROVIDERS: PCP Internal Medicine; Visit Provider Internal Medicine Medical Oncology | DX: Z95.2 Presence of prosthetic heart valve (principal); Z51.81 Encounter for therapeutic drug level monitoring; Z79.01 Long term (current) use of anticoagulants | CPT/HCPCS: 85610; 99211 ==

== ENCOUNTER 2024-07-15 06:35 | Outpatient (REF) | payer BC, SELFPAY ==
[2024-07-15 06:52] LABS: MANUAL DIFF FLAG NO
[2024-07-15 07:21] LABS: Basophils Percent Auto 0.9 % (0-2); Eosinophils Percent Auto 0.6 % (0-4); Hematocrit 40.8 % (42.0-52.0); Hemoglobin 14.4 g/dl (14.0-18.0); Imm Gran Abs Auto 0.01 X10*3/uL (0.00-0.03); Imm Gran Pct Auto 0.3 % (0.0-0.4); Lymphocytes Absolute Auto 1.5 X10*3/uL (1.2-4.9); Lymphocytes Percent Auto 42.6 % (20-40); Mean Corpuscular HGB Conc 35.3 g/dl (31.0-36.0); Mean Corpuscular Hemoglobin 29.9 pg (27.0-33.0); Mean Corpuscular Volume 84.8 fL (80.0-98.0); Mean Platelet Volume 10.8 fL (9.4-12.4); Monocytes Absolute Auto 0.4 X10*3/uL (0.1-1.2); Monocytes Percent Auto 11.1 % (2-11); Neutrophils Absolute Auto 1.5 x10*3/uL (2.0-8.3); Neutrophils Percent Auto 44.5 % (45-73); Platelet Count 169 X10*3/uL (160-400); Red Blood Count 4.81 X10*6/uL (4.60-5.80); Red Cell Distribution Width 12.9 % (11.0-16.0); White Blood Count 3.4 X10*3/uL (4.8-10.8)
[2024-07-15 07:34] LABS: Appearance Urine Cloudy; Color Urine Yellow; Glucose Urine UA Negative (Negative); Leukocyte Esterase Urine Negative (Negative); Nitrite Urine Negative (Negative); PH 5.5 (5.0-9.0); Specific Gravity - Urine >= 1.030 (1.005-1.025); Urine Blood Negative (Negative); Urine Ketones Negative (Negative); Urine Protein Negative (Neg-Trace)
[2024-07-15 07:54] LABS: Alanine Aminotransferase 22 U/L (0-40); Albumin Level 4.1 g/dL (3.5-5.0); Alkaline Phosphatase 58 U/L (39-117); Anion Gap 10 (12-20); Aspartate Amino Transferase 25 U/L (5-37); Bilirubin Total 0.6 mg/dL (0.0-1.0); Blood Urea Nitrogen 19 mg/dL (9-16); Calcium 9.1 mg/dL (8.4-10.2); Carbon Dioxide 26 mmol/L (22-29); Chloride 110 mmol/L (96-108); Cholesterol 204 mg/dL (<200); Estimated Glomerular Filt Rate > 60; Glucose Fasting 102 mg/dL (60-99); HDL Cholesterol 39 mg/dL (>40); LDL Cholesterol Calculated 149 mg/dL (<100); Potassium 4.1 mmol/L (3.3-5.1); Sodium 142 mmol/L (135-145); Total Protein 6.7 g/dL (6.5-8.0); Triglycerides 84 mg/dL (<150)
[2024-07-15 08:17] LABS: TSH reflex Free T4 1.36 uIU/mL (0.32-4.0); Vitamin D 25-OH Total 41.6 ng/mL (>30)
== END 2024-07-15 06:36 | disposition home or self-care (01) ==
LOC: HO.LAB 06:35
PROVIDERS: PCP Internal Medicine; Visit Provider Internal Medicine
DX: Z00.00 Encounter for general adult medical examination without abnormal findings (principal); D64.9 Anemia, unspecified; E55.9 Vitamin D deficiency, unspecified; E78.00 Pure hypercholesterolemia, unspecified; R30.0 Dysuria
CPT/HCPCS: 36415; 80053; 80061; 81003; 82306; 84443; 85025

== ENCOUNTER 2024-07-19 13:31 | Outpatient (AMB) | payer BC, SELFPAY ==
--- NOTE | 2024-07-19 13:41 | MHC.PC.OV ---
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 Accompanied by: Self / Same As Patient Allergies No Known Drug Allergies Allergy (Unknown, Verified 07/19/24 14:14) Unknown Medication List - Last Reconciled 07/19/24 by Feliberto Garcia MD amoxicillin 2,000 mg PO ONCE jijytzvtqu-jkfnkfvnlxkjf-jdwc 50-325-40 mg 1 cap PO Q6H PRN cholecalciferol (vitamin D3) 50 mcg PO DAILY metoprolol succinate ER 50 mg PO DAILY metronidazole 0.75% appl topical BID sumatriptan succinate 50 mg PO Q2-4H PRN valsartan 40 mg PO DAILY warfarin 5 mg See Protocol PO DAILY Tobacco use date assessed: 07/19/24 Dental Screening Dental Screen Date: 07/19/24 Did you have a dental visit in the last 12 months?: Yes Did you have a dental problem in the last 6 months where you did not have access to dental care?: No Was dental information given to patient?: Patient has dentist HPI annual PE- see comments HPI Details Patient comes in today for his annual physical examination States that he feels okay He denies any headaches or dizziness Denies any chest pains, no SOB No nausea/vomiting, no abdominal pain No change in bowel habits noted He denies any acute urinary symptoms He had his follow up labs done a few days ago - to discuss his results States that he had his screening colonoscopy last done with Dr. Gonzalez over at [facility] a couple of years ago in 2022 - recalls being advised that his colonoscopy came back normal and his next one would be in 7 years (2029) [facility] Medical History Pure hypercholesterolemia History of scarlet fever Cardiomyopathy Vitamin D deficiency Migraine Surgical History (Updated 07/19/24 @ 14:23 by Feliberto Garcia MD) History of colonoscopy Hx of prosthetic aortic valve replacement (~01/10/98) Family History Mother No problems noted. Father No problems noted. 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 1. Little interest or pleasure in doing things: not at all 2. Feeling down, depressed, or hopeless: not at all 3. Trouble falling or staying asleep, or sleeping too much: not at all 4. Feeling tired or having little energy: not at all 5. Poor appetite or overeating: not at all 6. Feeling bad about yourself - or that you are a failure or have let yourself or your family down: not at all 7. Trouble concentrating on things, such as reading the newspaper or watching television: not at all 8. Moving or speaking so slowly that other people could have noticed. Or the opposite - being so fidgety or restless that you have been moving around a lot more than usual: not at all 9. Thoughts that you would be better off or of hurting yourself in some way: not at all Total score: 0 Depression Screening Interpretation: Negative Depression Screening Done: Yes 01064 - PHQ-9 Billing: Yes Source: Developed by Drs. Christoph Cohn, Ashlyn Higgins, Jeremy Hernandez and colleagues, with an educational gail from [employer]. Thrive Questionnaire Date Thrive assessed: 07/19/24 I am a: Patient What is your living situation today?: I have a steady place to live Within the past 12 months, did the food you bought not last and you didn't have the money to get more?: Never true Within the past 12 months, did you worry whether your food would run out before you got money to buy more?: Never true Do you have trouble paying for medicines?: No Do you have trouble getting transportation to medical appointments?: No Do you have trouble paying your heating and electricity bill?: No Do you have trouble taking care of your child, family member or friend?: No Do you have trouble with day-to-day activities such as bathing, preparing meals, shopping, managing finances, etc.?: No Are you currently unemployed and looking for a job?: No Are you interested in more education?: No Please select the resources that you would like help with: None Currently or been in a relationship where the following occur: No concerns reported THRIVE Score: 0 AUDIT C Alcohol Use Questionnaire (AUDIT-C) 1. How often do you have a drink containing alcohol?: Never 3. How often do you have six or more drinks on one occasion?: Never Total Score: 0 Score Reviewed/Action Taken: Yes THADDEUS-7 AMB Questionnaire THADDEUS-7 Date THADDEUS - 7 assessed: 07/19/24 Feeling nervous, anxious, or on edge: 0 = Not at all Not being able to stop or control worryin = Not at all Worrying too much about different things: 0 = Not at all Trouble relaxin = Not at all Being so restless that it is hard to sit still: 0 = Not at all Becoming easily annoyed or irritable: 0 = Not at all Feeling afraid as if something awful might happen: 0 = Not at all Total THADDEUS-7 score (0-4 normal; 5-9 mild; 10-14 moderate; 15-21 severe): 0 Source: Developed by Drs. Christoph Cohn, Ashlyn Higgins, Jeremy Hernandez and colleagues, with an educational gail from [employer]. Review of Systems Const Denies chills, Denies fatigue, Denies fever(s), Denies headache(s), Denies malaise and Denies weakness Eyes Denies blurry vision, Denies change in vision, Denies irritation and Denies itchy eyes ENT Denies dysphagia, Denies dizziness, Denies otalgia, Denies headache(s), Denies nasal congestion, Denies neck pain, Denies odynophagia and Denies sore throat Card Denies chest pain, Denies rapid heart rate, Denies irregular heart rhythm, Denies palpitations and Denies dyspnea Resp Denies chest congestion, Denies cough, Denies dyspnea and Denies wheezing GI Denies abdominal pain, Denies bloating, Denies constipation, Denies dysphagia, Denies heartburn, Denies diarrhea, Denies nausea, Denies odynophagia and Denies vomiting Denies hematuria, Denies difficulty urinating, Denies dysuria, Denies urinary frequency and Denies urinary urgency Musc Denies back pain, Denies arthralgias, Denies joint swelling, Denies muscle weakness and Denies neck pain Skin/Breast Denies change in pigmentation, Denies lesions, Denies rash and Denies unusual bruising Neuro Denies dizziness, Denies headache(s), Denies paresthesias and Denies weakness Endo Denies fatigue and Denies palpitations Aller/Immun Denies itchy eyes and Denies wheezing Physical exam (Primary Care) Vital Signs: Last Vital Signs Pulse 82 07/19/24 13:42 BP 110/84 07/19/24 13:42 Pulse Ox 96 07/19/24 13:42 Oxygen Delivery Method Room Air 07/19/24 13:42 BMI result Body Mass Index 25.0 Tobacco/Smoking Status: Tobacco use Status Tobacco use date assessed 07/19/24 07/19/24 13:45 Patient Tobacco Use Status Never used Tobacco 07/19/24 13:45 e-Cigarette/Vaping Use Never Used 07/19/24 13:45 PHQ-9: PHQ-9 Score PHQ-9: Total score 0 07/19/24 14:24 Depression Screening Interpretation: Negative Thrive Assessment: Date of Thrive Assessment Date Thrive assessed 07/19/24 07/19/24 13:45 Currently or been in a relationship where the following occur: No concerns reported Const General: no acute distress, alert and awake Orientation/consciousness: patient oriented x3 [facility] Head: Yes normocephalic and Yes atraumatic Ears: external ears normal, TM's normal bilaterally and EAC's normal General nose exam: No nasal discharge present Face and sinus: Yes normal facial exam and Yes sinuses nontender Teeth and gingiva: dentition normal Throat: Yes posterior oropharynx normal and Yes tonsils normal (no TP congestion) Eyes Eyelids: Yes eyelids normal Conjunctivae: conjunctivae normal Pupils: Equal, round and reactive pupils present EOM: EOMs intact bilaterally Neck Neck: Yes no lymphadenopathy and Yes supple Thyroid: Thyroid normal Resp Auscultation: clear to auscultation bilaterally, no rales and no wheezes Cardio Rate: regular rate Rhythm: regular rhythm Heart sounds: Clicking heart sound present ((+) metallic click over the 2nd heart sound) and no murmurs GI Palpation (GI): Soft to palpation, nontender and No hepatosplenomegaly present Auscultation: normal bowel sounds General: Yes no CVA tenderness Back/Spine/Pelvis Back: no CVA tenderness Thoracic/Lumbar Spine: No lumbar spinal tenderness Skin Lesions: no lesions Rashes: no rashes Neuro General: patient oriented x3, moves all extremities, no focal motor deficits and CN's II-XI intact bilaterally Cranial nerves: Yes Equal, round and reactive pupils present Cognition (Neuro): normal cognition Gait exam (Neuro): Normal gait present Extrem General: Yes no clubbing, cyanosis or edema Results Reviewed Results Reviewed: Laboratory Tests 07/15/24 07/15/24 06:49 06:50 WBC 3.4 L Hgb 14.4 Hct 40.8 L Plt Count 169 Sodium 142 Potassium 4.1 Creatinine 0.91 Estimated GFR > 60 Fasting Glucose 102 H Calcium 9.1 AST 25 ALT 22 Triglycerides 84 Cholesterol 204 H LDL Cholesterol, Calc 149 H HDL Cholesterol 39 L 25-OH Vitamin D Total 41.6 TSH 1.36 Ur Specific [place] >= 1.030 H Urine Protein Negative Urine Glucose (UA) Negative Urine Blood Negative Urine Nitrite Negative Ur Leukocyte Esterase Negative Coding Level of Care Code Est Pt Prev Care 40-64y(73226) Diagnoses Annual physical exam Z00.00 Cardiomyopathy, unspecified type I42.9 Cardiomyopathy type: unspecified Hx of prosthetic aortic valve replacement Z95.2 Pure hypercholesterolemia E78.00 Migraine without status migrainosus, not intractable, unspecified migraine type G43.909 Intractability: not intractable Migraine type: unspecified Status migrainosus presence: without status migrainosus Vitamin D deficiency E55.9 Additional Codes PHQ-9 - 22084 - PHQ-9 Billing: Yes ([id number]) Assessment & Plan Assessment & Plan (1) Annual physical exam: Code(s): Z00.00 - Encounter for general adult medical examination without abnormal findings Category: Medical Plan: Results of his labs done a few days ago reviewed and discussed with patient He had his screening colonoscopy last done with Dr. Gonzalez over at [facility] a couple of years ago in 2022 - recalls being advised that his colonoscopy came back normal and his next one would be in 7 years (2029) (2) Cardiomyopathy: Comment: sees cardiology (Dr. Muñoz) Code(s): I42.9 - Cardiomyopathy, unspecified Category: Medical Qualifiers: Cardiomyopathy type: unspecified Qualified Code(s): I42.9 - Cardiomyopathy, unspecified Plan: Patient remains asymptomatic from a cardiac standpoint Continue Valsartan 40 mg QD and Metoprolol ER 50 mg QD Follow up with cardiology (Dr. Candelario Muñoz) as scheduled (3) Hx of prosthetic aortic valve replacement: Onset Date: ~01/10/[address] Comment: [facility] valve - Dr. Grant - 1997 Code(s): Z95.2 - Presence of prosthetic heart valve Category: Surgical Plan: Continue Coumadin 5 mg QD for lifelong anticoagulation - patient follow up with the coumadin clinic as scheduled for routine PT/INR monitoring He will need endocarditis prophylaxis with Abx prior to any invasive procedures (4) Pure hypercholesterolemia: Code(s): E78.00 - Pure hypercholesterolemia, unspecified Category: Medical Plan: Results of his labs done a few days ago reviewed and discussed with patient - he is advised that his cholesterol numbers are still high (total cholesterol is at 204 mg/dl and LDL cholesterol at 149 mg/dl) He still prefers to avoid taking any cholesterol-lowering medications if possible - have advised him that he really should consider taking Rx but 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 Joe Carranza) Code(s): G43.909 - Migraine, unspecified, not intractable, without status migrainosus Category: Medical Qualifiers: Intractability: not intractable Migraine type: unspecified Status migrainosus presence: without status migrainosus Qualified Code(s): G43.909 - Migraine, unspecified, not intractable, without status migrainosus Plan: Stable Continue Fioricet 50-325-40 mg PRN and Sumatriptan 50 mg PRN as instructed - his insurance no longer covers Fioricet but patient states that he rarely takes this anyway and can get by without it or can substitute for this when needed by taking some Tylenol and caffeine-containing products Reinforced again avoidance of any potential migraine triggers as much as possible Follow up with neurology (Dr. Joe Carranza) as scheduled (6) Vitamin D deficiency: Code(s): E55.9 - Vitamin D deficiency, unspecified Category: Medical Plan: Continue Vitamin D3 2000 units QD Plan Follow up in 6 months Orders: Orders Complete Blood Count Auto Diff 6 Months D64.9 - Anemia, unspecified Lipid Panel 6 Months E78.00 - Pure hypercholesterolemia, unspecified Comprehensive [place]. Panel Fast 6 Months E78.00 - Pure hypercholesterolemia, unspecified
[2024-07-19 13:42] VITALS: BP 110/84; PULSE 82; O2SAT 96; BMI 25.0
--- OUTSIDE RECORDS SUMMARY | 2024-07-19 16:04 | XMS_ITS | Data Portability ---
Author Organization [facility], Endoscopy, [facility] Address [address] [place] [id number] Assessment No assessment recorded. Plan of Treatment [...] Lisa - Colonoscopy completed Farhad Gonzalez MD [address] [place] [address], [phone], [facility] 08/07/2022 07:53:41 Imaging Results None recorded. Procedure [...] SNOMED-CT Code Diagnosis ICD10 Code Diagnosis Note [id number] [facility], [address] [address] 08/22/2015 09:13:19 08/22/2015 13:16:47 [id number] Roopa Rai RN Endoscopy , [address] [address] 08/07/2022 06:48:22 08/07/2022 12:50:35 Health Concerns Section Related Observation LastModified by Organization Detai ls LastModified Time None Recorded Concern Status LastModified by Organization Details LastModified Time None Recorded Advance Directives Directive None Recorded Payers Encounter Date Sequence Insurance Name Policy Number Policy [place] Covered Member ID [place] Member ID Guarantor Name 08/07/2022 1 [facility] [place] [id number] Bi Hayes [id number] Bi Hayes
== END 2024-07-19 14:34 | disposition home or self-care (01) ==
LOC: HO.HMCH 13:32
PROVIDERS: PCP Internal Medicine; Visit Provider Internal Medicine
DX: Z00.00 Encounter for general adult medical examination without abnormal findings (principal); I42.9 Cardiomyopathy, unspecified; Z95.2 Presence of prosthetic heart valve; E78.00 Pure hypercholesterolemia, unspecified; G43.909 Migraine, unspecified, not intractable, without status migrainosus; E55.9 Vitamin D deficiency, unspecified

== ENCOUNTER → 2024-07-19 13:31 | Outpatient (BNVA) | payer BC, SELFPAY | PROVIDERS: PCP Internal Medicine; Visit Provider Internal Medicine | DX: Z00.00 Encounter for general adult medical examination without abnormal findings (principal); I42.9 Cardiomyopathy, unspecified; E78.00 Pure hypercholesterolemia, unspecified; G43.909 Migraine, unspecified, not intractable, without status migrainosus; E55.9 Vitamin D deficiency, unspecified; Z95.2 Presence of prosthetic heart valve; Z79.01 Long term (current) use of anticoagulants; Z79.899 Other long term (current) drug therapy | CPT/HCPCS: 96127 ==

== ENCOUNTER → 2024-08-09 13:03 | Outpatient (BNVA) | payer BC, SELFPAY | PROVIDERS: PCP Internal Medicine; Visit Provider Internal Medicine Medical Oncology | DX: Z95.2 Presence of prosthetic heart valve (principal); Z51.81 Encounter for therapeutic drug level monitoring; Z79.01 Long term (current) use of anticoagulants | CPT/HCPCS: 85610; 99211 ==

== ENCOUNTER 2024-09-13 13:03 | Outpatient (AMB) | payer BC, SELFPAY ==
--- NOTE | 2024-09-13 13:20 | MHC.OFFVISCO ---
Intake Intake Visit Reasons: Anticoagulation Allergies No Known Drug Allergies Allergy (Unknown, Verified 09/13/24 13:04) Unknown Medication List - Last Reconciled 09/13/24 by Yenny Cardenas RN amoxicillin 2,000 mg PO ONCE ysrlynkusd-ndmeebjiuaezx-xcrz 50-325-40 mg 1 cap PO Q6H PRN cholecalciferol (vitamin D3) 50 mcg PO DAILY metoprolol succinate ER 50 mg PO DAILY metronidazole 0.75% appl topical BID sumatriptan succinate 50 mg PO Q2-4H PRN valsartan 40 mg PO DAILY warfarin 5 mg See Protocol PO DAILY Nursing Note INR: 2.9 in therapeutic range Medications and supplements reviewed No changes in health, diet, medications, or supplements, Denies any signs and symptoms of bleeding or bruising or clotting. Bleeding, bruising, clotting discussed Nutritional guidance given Dose: 2.5mg x 1 day/ 5mg x 6 days F/U INR: 3 weeks prior to move Patient verbalizes understanding of instructions given Anti-Coag Initial Assessment Social Hx Patient Tobacco Use Status: Never used Tobacco alcohol intake: current Alcohol intake frequency: does not drink Cardiovascular Hx: Cardiomyopathy (mild per pt) and Other (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 Illness/Depression: No Coding Level of Care Code Est Patient Level 1 Diagnoses Current use of anticoagulant therapy Z79.01 Results AMB INR Fingerstick AMB INR Fingerstick 2.9 Last Edit by Yenny Cardenas RN on 09/13/24 13:15 Assessment & Plan Assessment & Plan (1) Current use of anticoagulant therapy: Code(s): Z79.01 - assisted (current) use of anticoagulants Category: Medical
[2024-09-13 13:21] LABS: Prothrombin Time Whole Bld POC 35.1 sec (11.1-13.5); ~PT, ~INR - Anti Coag Clinic 2.9 (0.9-1.1)
--- OUTSIDE RECORDS SUMMARY | 2024-09-13 14:03 | XMS_ITS | Data Portability ---
Author Organization [facility], , [facility] Address [address] [place] [address] Assessment No assessment recorded. Plan of Treatment [...] Lisa - Colonoscopy completed Farhad Gonzalez MD [address] [place] [address], [phone], [facility] 08/22/2015 11:24:04 Imaging Results None recorded. Procedure [...] SNOMED-CT Code Diagnosis ICD10 Code Diagnosis Note [id number] Farhad Gonzalez MD [facility], [address] [address] 08/22/2015 09:13:19 08/22/2015 13:16:47 [id number] Farhad Gonzalez MD Endoscopy , [address] [address] 08/07/2022 06:48:22 08/07/2022 12:50:35 Health Concerns Section Related Observation LastModified by Organization Detai ls LastModified Time None Recorded Concern Status LastModified by Organization Details LastModified Time None Recorded Advance Directives Directive None Recorded Payers Encounter Date Sequence Insurance Name Policy Number Policy [place] Covered Member ID [place] Member ID Guarantor Name 08/22/2015 1 [employer] (O) [id number] Bi Hayes [id number] Bi Hayes
== END 2024-09-13 13:24 | disposition home or self-care (01) ==
LOC: HO.ACS 13:03
PROVIDERS: PCP Internal Medicine; Visit Provider Internal Medicine Medical Oncology
DX: Z79.01 Long term (current) use of anticoagulants (principal)

== ENCOUNTER → 2024-09-13 13:03 | Outpatient (BNVA) | payer BC, SELFPAY | PROVIDERS: PCP Internal Medicine; Visit Provider Internal Medicine Medical Oncology | DX: Z95.2 Presence of prosthetic heart valve (principal); Z79.01 Long term (current) use of anticoagulants; Z51.81 Encounter for therapeutic drug level monitoring | CPT/HCPCS: 85610; 99211 ==

== ENCOUNTER 2024-10-12 13:01 | Outpatient (AMB) | payer BC, SELFPAY ==
[2024-10-12 13:07] LABS: Prothrombin Time Whole Bld POC 37.6 sec (11.1-13.5); ~PT, ~INR - Anti Coag Clinic 3.1 (0.9-1.1)
--- NOTE | 2024-10-12 13:12 | MHC.OFFVISCO ---
Intake Intake Visit Reasons: Anticoagulation Allergies No Known Drug Allergies Allergy (Unknown, Verified 10/12/24 13:03) Unknown Medication List - Last Reconciled 10/12/24 by Virginia Smallwood RN amoxicillin 2,000 mg PO ONCE ujsrzzgexx-kwnxnncstllmk-tvde 50-325-40 mg 1 cap PO Q6H PRN cholecalciferol (vitamin D3) 50 mcg PO DAILY metoprolol succinate ER 50 mg PO DAILY metronidazole 0.75% appl topical BID sumatriptan succinate 50 mg PO Q2-4H PRN valsartan 40 mg PO DAILY warfarin 5 mg See Protocol PO DAILY Nursing Note INR: 3.1 in therapeutic range of 2.5-3.5 Medications and supplements reviewed No changes in health, diet, medications, or supplements, Denies any signs and symptoms of bleeding or bruising or clotting. 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 Illness/Depression: No Coding Level of Care Code Est Patient Level 1 Diagnoses Current use of anticoagulant therapy Z79.01 Results AMB INR Fingerstick AMB INR Fingerstick 3.1 Last Edit by Virginia Smallwood RN on 10/12/24 13:07 interface delay Assessment & Plan Assessment & Plan (1) Current use of anticoagulant therapy: Code(s): Z79.01 - terminal carman (current) use of anticoagulants Category: Medical
--- OUTSIDE RECORDS SUMMARY | 2024-10-12 14:00 | XMS_ITS | Data Portability ---
Author Organization [facility], , [facility] Address [address] [place] [address] Assessment No assessment recorded. Plan of Treatment [...] Lisa - Colonoscopy completed Farhad Gonzalez MD [address] [place] [address], [phone], [facility] 08/22/2015 11:24:04 Imaging Results None [...] SNOMED-CT Code Diagnosis ICD10 Code Diagnosis Note [id number] Farhad Gonzalez MD [facility], [address] [address] 08/22/2015 09:13:19 08/22/2015 13:16:47 [id number] Farhad Gonzalez MD Endoscopy , [address] [address] 08/07/2022 06:48:22 08/07/2022 12:50:35 Health Concerns Section Related Observation LastModified by Organization Detai ls LastModified Time None Recorded Concern Status LastModified by Organization Details LastModified Time None Recorded Advance Directives Directive None Recorded Payers Insurance Date Sequence Insurance Name Policy Number Policy [place] Covered Member ID [place] Member ID Guarantor Name 2022 1 [employer] (O) [id number] Bi Hayes [id number] Bi Hayes
== END 2024-10-12 13:14 | disposition home or self-care (01) ==
LOC: HO.ACS 13:01
PROVIDERS: PCP Internal Medicine; Visit Provider Internal Medicine Medical Oncology
DX: Z79.01 Long term (current) use of anticoagulants (principal)

== ENCOUNTER → 2024-10-12 13:01 | Outpatient (BNVA) | payer BC, SELFPAY | PROVIDERS: PCP Internal Medicine; Visit Provider Internal Medicine Medical Oncology | DX: Z79.01 Long term (current) use of anticoagulants (principal) | CPT/HCPCS: 85610; 99211 ==

== ENCOUNTER 2024-11-22 15:30 | Outpatient (AMB) | payer BC, SELFPAY ==
--- OUTSIDE RECORDS SUMMARY | 2024-11-22 15:38 | XMS_ITS | Encounter Summary ---
Author Organization [facility] Address [address] [place] [phone] Phone Care Team Providers Care Replenishment Analyst Name Role Phone Unknown, Unknown Primary Care Provider Abraham Galvan MD Primary Care Provider [phone] Encounter Details Date Type Department Care Team (Latest Contact Info) Description 03/05/2017 Transcribe Orders [address] [address] Renard, Abraham Joel MD [address] [place] [address] [address] [place] [id number] [email or web address] Heart valve replaced (Primary Dx) Social History Tobacco Use Types Packs/Day Years Used Date Smoking Tobacco: Never Assessed Sex and Gender Information Value Date Recorded Sex Assigned at Male 08/29/2018 2:20 AM EDT Legal Sex Male 9:42 PM EDT Gender Identity Male 08/29/2018 2:20 AM EDT Sexual Orientation Straight 08/29/2018 2: 20 AM EDT documented as of this encounter Plan of Treatment Not on file documented as of this encounter Results * (ABNORMAL) PT-INR (03/05/2017 10:31 AM EST) PT 34.3(H) 10.2 - 12.9 sec [facility] INR 3.0(H) 0.9 - 1.1 [facility] Comment:Therapeutic range fo r oral Vitamin K antagonists: 2.0-3.5 Blood 03/05/2017 10:3 1 AM EST 03/05/2017 10:36 AM EST Abraham Glynn MD LAB BLOOD ORDERABLES Final Resu lt [facility] [address] [place] [address] documented in this encounter Visit Diagnoses Diagnosis Heart valve replaced- Primary Heart valve replaced by other means documented in this encounter Additional Health Concerns Infection Onset Date Last Indicated Resolved Time CoV-Risk 11/05/2019 11/06/2019 11/19/2019 3:55 AM EDT CoV-Risk Comment:Per Ambulatory Triage Form 12/25/2021 12/25/202112/25 1:50 PM EDT CoV-Exposed Comment:Positive COVID-19 12/25/2021 12/25/2021 12/25/2021 1:5 0 PM EDT COVID-19 12/25/2021 12/25/2021 01/15/2022 1:22 AM EDT documented as of this encounter Care Teams Replenishment Analyst Relationship Specialty Start Date End Date Unknown, Unknown, MD PCP - General 03/05/17 07/09/17 Renard, Abraham Joel MD [address] [place] [address] [address] [place] [address] [email or web address] PCP - General Internal Medicine 07/10/17 documented as of this encounter Additional Source Comments The information contained in this document represents components of the legal health record. It is not the complete legal health record.[facility]
[2024-11-22 15:46] LABS: Prothrombin Time Whole Bld POC 39.0 sec (11.1-13.5); ~PT, ~INR - Anti Coag Clinic 3.3 (0.9-1.1)
--- NOTE | 2024-11-22 15:47 | MHC.OFFVISCO ---
Intake Intake Visit Reasons: Anticoagulation Allergies No Known Drug Allergies Allergy (Unknown, Verified 11/22/24 15:31) Unknown Medication List - Last Reconciled 11/22/24 by Yenny Cardenas RN amoxicillin 2,000 mg PO ONCE dkgzbiakbj-rglytcbmzfsdk-gyni 50-325-40 mg 1 cap PO Q6H PRN cholecalciferol (vitamin D3) 50 mcg PO DAILY metoprolol succinate ER 50 mg PO DAILY metronidazole 0.75% appl topical BID sumatriptan succinate 50 mg PO Q2-4H PRN valsartan 40 mg PO DAILY warfarin 5 mg See Protocol PO DAILY Nursing Note INR: 3.3 in therapeutic range- 2.5-3.5 Medications and supplements reviewed No changes in medications, or supplements, *Pt in the process of moving to [facility] with his family- more active and diet changes with moving. Denies any signs and symptoms of bleeding or bruising or clotting. 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 Illness/Depression: No Coding Level of Care Code Est Patient Level 1 Diagnoses Current use of anticoagulant therapy Z79.01 Results AMB INR Fingerstick AMB INR Fingerstick 3.3 Last Edit by Yenny Cardenas RN on 11/22/24 15:37 MANUAL ENTRY Assessment & Plan Assessment & Plan (1) Current use of anticoagulant therapy: Code(s): Z79.01 - care home (current) use of anticoagulants Category: Medical
== END 2024-11-22 15:51 | disposition home or self-care (01) ==
LOC: HO.ACS 15:30
PROVIDERS: PCP Internal Medicine; Visit Provider Internal Medicine Medical Oncology
DX: Z79.01 Long term (current) use of anticoagulants (principal)

== ENCOUNTER → 2024-11-22 15:30 | Outpatient (BNVA) | payer BC, SELFPAY | PROVIDERS: PCP Internal Medicine; Visit Provider Internal Medicine Medical Oncology | DX: Z79.01 Long term (current) use of anticoagulants (principal) | CPT/HCPCS: 85610; 99211 ==

== ENCOUNTER 2024-12-20 15:47 | Outpatient (AMB) | payer BC, SELFPAY ==
--- NOTE | 2024-12-20 16:06 | MHC.OFFVISCO ---
Intake Intake Visit Reasons: Anticoagulation Allergies No Known Drug Allergies Allergy (Unknown, Verified 12/20/24 15:50) Unknown Medication List - Last Reconciled 12/20/24 by Yenny Cardenas RN amoxicillin 2,000 mg PO ONCE nxxcxsldoq-nhpiufwwnczhn-wfrj 50-325-40 mg 1 cap PO Q6H PRN cholecalciferol (vitamin D3) 50 mcg PO DAILY metoprolol succinate ER 50 mg PO DAILY metronidazole 0.75% appl topical BID sumatriptan succinate 50 mg PO Q2-4H PRN valsartan 40 mg PO DAILY warfarin 5 mg See Protocol PO DAILY Nursing Note INR: 3.4 in therapeutic range Medications and supplements reviewed- they remain the same *Pt has been the process of moving [facility] [place] over the Summer-most likely due to increased activity has lost weight - not sure how much but notices his clothes fit differently Denies any signs and symptoms of bleeding or bruising or clotting. 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 Illness/Depression: No Coding Level of Care Code Est Patient Level 1 Diagnoses Current use of anticoagulant therapy Z79.01 Results AMB INR Fingerstick AMB INR Fingerstick 3.4 Last Edit by Yenny Cardenas RN on 12/20/24 15:59 manual entry Assessment & Plan Assessment & Plan (1) Current use of anticoagulant therapy: Code(s): Z79.01 - prison (current) use of anticoagulants Category: Medical
[2024-12-20 16:36] LABS: Prothrombin Time Whole Bld POC 41.0 sec (11.1-13.5); ~PT, ~INR - Anti Coag Clinic 3.4 (0.9-1.1)
--- OUTSIDE RECORDS SUMMARY | 2024-12-20 18:35 | XMS_ITS | Encounter Summary ---
Author Organization [facility] Address [address] [facility] [address] [place] [address] Phone Care Team Providers Care Taxonomy Teacher Name Role Phone Unknown, Unknown Primary Care Provider Abraham Galvan MD Primary Care Provider [phone] Encounter Details Date Type Department Care Team (Latest Contact Info) Description 06/16/2017 Transcribe Orders [facility] [address] [place] [id number] Renard, Abraham Joel MD [address] [place] [address] [address] [place] [address] [email or web address] Routine general medical examination at a health care facility (Primary Dx); Fatigue, unspecified type; Migraine without status migrainosus, not intractable, unspecified migraine type Social History Tobacco Use Types Packs/Day Years [...] as of this encounter Results * (ABNORMAL) Valproic acid (06/16/2017 8:16 AM EST) VALPROIC ACID <2.8(L) 50.0 - 100.0 ug/mL [facility] Blood 06/16/2017 8:16 AM EST 06/16/2017 8:50 AM EST Abraham Glynn MD LAB BLOOD ORDERABLES Final Resu lt Performing Organization Address City/[facility]/ZIP Co de Phone Number [address] [address] * PSA (screening) (06/16/2017 8:16 AM EST) PSA 0.89 0 - 4.00 ng/mL [facility] Blood 06/16/2017 8:16 AM EST 06/16/2017 8:51 AM EST Abraham Glynn MD LAB BLOOD ORDERABLES Final Resu lt Performing Organization Address [facility] de Phone Number [address] [address] * CBC and differential (06/16/2017 8:16 AM EST) WBC 3.50 3.40 - 11.20 K/uL [facility] RBC 5.13 4.50 - 5.50 M/uL [facility] HGB 15.2 13.0 - 17.0 g/dL [facility] HCT 44.2 40.0 - 51.0 % [facility] PLT 183 130 - 400 K/uL [facility] MCV 86.2 79.0 - 98.0 fL [facility] MCH 29.6 27.0 - 34.8 pg [facility] MCHC 34.4 31.5 - 36.0 g/dL [facility] RDW 13.2 10.8 - 14.6 % [facility] MPV 11.7 9.4 - 12.4 fl [facility] NRBC 0.00 /100 WBCs [facility] ABSOLUTE NRBC 0.00 K/uL [facility] DIFF METHOD Auto [facility] NEUTS 50.9 45.30 - 77.70 % [facility] LYMPHS 36.9 12.30 - 39.70 % [facility] MONOS 9.7 4.10 - 12.80 % [facility] EOS 1.1 0 - 7.2 % [facility] BASOS 1.4 0 - 2.80 % [facility] Granulocytes, immature (%) 0.0 0.0 - 0.9 % [facility] ABSOLUTE NEUTS 1.78 1.40 - 7.70 K/uL [facility] ABSOLUTE LYMPHS 1.29 0.60 - 3.20 K/uL [facility] ABSOLUTE MONOS 0.34 0.11 - 0.59 K/uL [facility] ABSOLUTE EOS 0.04 0.01 - 0.50 K/uL [facility] ABSOLUTE BASOS 0.05 0.00 - 0.08 K/uL [facility] Granulocytes, immature 0.00 0.00 - 0.05 K/uL [facility] Blood 06/16/2017 8:16 AM EST 06/16/2017 8:50 AM EST us Abraham Glynn MD LAB BLOOD ORDERABLES Final Resu lt Performing Organization Address [facility] Co de Phone Number [address] [address] * TSH with reflex (06/16/2017 8:16 AM EST) TSH 2.80 0.27 - 4.20 uIU/mL [facility] Blood 06/16/2017 8:16 AM EST 06/16/2017 8:50 AM EST us Abraham Glynn MD LAB BLOOD ORDERABLES Final Resu lt Performing Organization Address [facility] Co de Phone Number [address] [address] * (ABNORMAL) Lipid panel (06/16/2017 8:16 AM EST) HDL 40 mg/dL [facility] Comment: Interpretation: Risk Level Males Decreased >45 mg/dL Average 40-45 mg/dL Increased <40 mg/dL CHOLESTEROL 209 0 - 240 mg/dL [facility] TRIGLYCERIDES 157 30 - 160 mg/dL [facility] LDL 138(H) 50 - 129 mg/dL [facility] Comment: LDL levels in terms of risk for coronary heart disease: <100 mg/dL: Optimal 100-129 mg/dL: Near or above optimal 130-159 mg/dL: Borderline high 160-189 mg/dL: High >190 mg/dL: Very High CARDIAC RISK RATIO 5.2(H) 3.4 - 5.0 [facility] Blood 06/16/2017 8:16 AM EST 06/16/2017 8:50 AM EST Abraham Glynn MD LAB BLOOD ORDERABLES Final Resu lt [facility] [address] [place] [address] * Comprehensive metabolic panel (06/16/2017 8:16 AM EST) SODIUM 142 133 - 146 mmol/L [facility] POTASSIUM 4.3 3.3 - 5.1 mmol/L [facility] CHLORIDE 102 96 - 108 mmol/L [facility] CO2 27 21 - 35 mmol/L [facility] BUN 17 6 - 19 mg/dL [facility] CREATININE 0.90 0.5 - 1.5 mg/dL [facility] GLUCOSE 90 70 - 99 mg/dL [facility] ALBUMIN 4.2 3.9 - 4.8 g/dL [facility] TOTAL PROTEIN 7.4 6.5 - 8.0 g/dL [facility] CALCIUM 9.4 8.4 - 10.3 mg/dL [facility] ALKALINE PHOSPHATASE 58 39 - 117 U/L [facility] TOTAL BILIRUBIN 0.9 0.0 - 1.2 mg/dL [facility] AST 30 0 - 37 U/L [facility] ALT 31 0 - 40 U/L [facility] GLOBULIN 3.2 1 - 4.8 g/dL [facility] EGFR >60 >60 mL/min/1.7 3m2 [facility] Comment:Abnormal if <60. If patient is -Czech, multiply the result by 1.21. ANION GAP 17 10 - 20 mmol/L [facility] Blood 06/16/2017 8:16 AM EST 06/16/2017 8:50 AM EST us Abraham Glynn MD LAB BLOOD ORDERABLES Final Resu lt [facility] [address] [place] [address] documented in this encounter Visit Diagnoses Diagnosis Routine general medical examination at a health care facility- Primary Fatigue, unspecified type Migraine without status migrainosus, not intractable, unspecified migraine type documented in this encounter Additional Health Concerns Infection Onset Date Last Indicated Resolved Time CoV-Risk 11/05/2019 11/06/2019 11/19/2019 3:55 AM EDT CoV-Risk Comment:Per Ambulatory Triage Form 12/25/2021 12/25/202112/25 1:50 PM EDT CoV-Exposed Comment:Positive COVID-19 12/25/2021 12/25/2021 12/25/2021 1:5 0 PM EDT COVID-19 12/25/2021 12/25/2021 01/15/2022 1:22 AM EDT documented as of this encounter Care Teams Taxonomy Teacher Relationship Specialty Start Date End Date Unknown, Unknown, MD PCP - General 03/05/17 07/09/17 Renard, Abraham Joel MD [address] [place] [address] [address] [place] [address] [email or web address] PCP - General Internal Medicine 07/10/17 documented as of this encounter Additional Source Comments The information contained in this document represents components of the legal health record. It is not the complete legal health record.[facility]
--- OUTSIDE RECORDS SUMMARY | 2024-12-20 18:35 | XMS_ITS | Encounter Summary ---
Author Organization [facility] Address [address] [place] [address] [place] [address] Phone Care Team Providers Care Volunteer Services Manager Name Role Phone RenardAbraham MD Primary Care Provider [phone] Encounter Details Date Type Department Care Team (Latest Contact Info) Description 08/28/2017 Transcribe Orders [facility] [address] [place] [phone] Renard, Abraahm Joel MD [address] [place] [address] [address] [place] [address] [email or web address] Heart valve replaced (Primary Dx) Social History [...] of this encounter Results * (ABNORMAL) PT-INR (08/28/2017 9:22 AM EDT) PT 38.3(H) 10.2 - 12.9 sec [facility] INR 3.3(H) 0.9 - 1.1 [facility] Comment:Therapeutic range fo r oral Vitamin K antagonists: 2.0-3.5 Blood 08/28/2017 9:22 AM EDT 08/28/2017 9:41 AM EDT Abraham Glynn MD LAB BLOOD ORDERABLES Final Resu lt [address] [address] documented in this encounter Visit Diagnoses Diagnosis [...] documented as of this encounter Care Teams Volunteer Services Manager Relationship Specialty Start Date End Date Abraham Glynn MD [address] [place] [address] & [address] [place] [address] [email or web address] PCP - General Internal Medicine 07/10/17 documented as of this encounter Additional Source Comments The information contained in this document represents components of the legal health record. It is not the complete legal health record.[facility]
--- OUTSIDE RECORDS SUMMARY | 2024-12-20 18:35 | XMS_ITS | Encounter Summary ---
Author Organization [facility] Address [address] [place] [address] [place] [address] Phone Care Team Providers Care Production Posting Clerk Name Role Phone Unknown, Unknown Primary Care Provider Abraham Galvan MD Primary Care Provider [phone] Encounter Details Date Type Department Care Team (Latest Contact Info) Description 03/05/2017 Transcribe Orders [facility] [address] [place] [address] Harmeet Muñoz MD [address] [place] [address] Routine general medical examination at a health care facility (Primary Dx); Heart valve replaced Social History Tobacco Use Types Packs/Day Years [...] on file documented as of this encounter Procedures Procedure Name Priority Date/Time Associated Diagnosis Comments PT-INR Routine 03/05/2017 10:31 AM EST Heart valve replaced MAGNESIUM Routine 03/05/2017 10:31 AM EST Routine general medical examination at a health care facility BASIC METABOLIC PANEL Routine 03/05/2017 10:31 AM EST Routine general medical examination at a health care facility documented in this encounter Results * (ABNORMAL) PT-INR (03/05/2017 10:31 AM EST) PT 34.3(H) 10.2 - 12.9 sec [facility] INR 3.0(H) 0.9 - 1.1 [facility] Comment:Therapeutic range fo r oral Vitamin K antagonists: 2.0-3.5 Blood 03/05/2017 10:3 1 AM EST 03/05/2017 10:36 AM EST us Abraham Glynn MD LAB BLOOD ORDERABLES Final Resu lt Performing Organization Address [facility]/ZIP Co de Phone Number [address] [address] * Magnesium (03/05/2017 10:31 AM EST) Pathologist [facility] MAGNESIUM 2.2 1.6 - 2.6 mg/dL [facility] Blood 03/05/2017 10:3 1 AM EST 03/05/2017 10:36 AM EST Harmeet Muñoz MD LAB BLOOD ORDERABLES Final Result Performing Organization Address [facility] Co de Phone Number [address] [address] * Basic metabolic panel (03/05/2017 10:31 AM EST) SODIUM 142 133 - 146 mmol/L [facility] CHLORIDE 103 96 - 108 mmol/L [facility] POTASSIUM 4.5 3.3 - 5.1 mmol/L [facility] CO2 29 21 - 35 mmol/L [facility] BUN 16 6 - 19 mg/dL [facility] CREATININE 0.80 0.5 - 1.5 mg/dL [facility] GLUCOSE 82 70 - 99 mg/dL [facility] CALCIUM 9.8 8.4 - 10.3 mg/dL [facility] EGFR >60 60 - 1000 mL/min/1.7 3m2 [facility] Comment:Abnormal if <60. If patient is -Italian, multiply the result by 1.21. ANION GAP 15 10 - 20 mmol/L [facility] Blood 03/05/2017 10:3 1 AM EST 03/05/2017 10:36 AM EST Harmeet Muñoz MD LAB BLOOD ORDERABLES Final Result [facility] [address] [place] [address] documented in this encounter Visit Diagnoses Diagnosis Routine general medical examination at a health care facility- Primary Heart valve replaced Heart valve replaced by other means documented in this encounter Additional Health Concerns Infection Onset Date Last Indicated Resolved Time CoV-Risk 11/05/2019 11/06/2019 11/19/2019 3:55 AM EDT CoV-Risk Comment:Per Ambulatory Triage Form 12/25/2021 12/25/202112/25 1:50 PM EDT CoV-Exposed Comment:Positive COVID-19 12/25/2021 12/25/2021 12/25/2021 1:5 0 PM EDT COVID-19 12/25/2021 12/25/2021 01/15/2022 1:22 AM EDT documented as of this encounter Care Teams Production Posting Clerk Relationship Specialty Start Date End Date Unknown, Unknown, MD PCP - General 03/05/17 07/09/17 Renard, Abraham Joel MD [address] [place] [address] & [address] [place] [address] [email or web address] PCP - General Internal Medicine 07/10/17 documented as of this encounter Additional Source Comments The information contained in this document represents components of the legal health record. It is not the complete legal health record.[facility]
--- OUTSIDE RECORDS SUMMARY | 2024-12-20 18:35 | XMS_ITS | Encounter Summary ---
Author Organization [facility] Address [address] [facility] [address] [place] [address] Phone Care Team Providers Care News Assistant Name Role Phone Unknown, Unknown Primary Care Provider Abraham Galvan MD Primary Care Provider [phone] Encounter Details Date Type Department Care Team (Latest Contact Info) Description 05/13/2017 Transcribe Orders [facility] [address] [place] [address] RenardAbraham MD [address] [place] [address] [address] [place] [address] [email or web address] Heart valve replaced (Primary Dx) Social [...] on file documented as of this encounter Visit Diagnoses Diagnosis Heart valve [...] documented as of this encounter Care Teams News Assistant Relationship Specialty Start Date End Date Unknown, Unknown, MD PCP - General 03/05/17 07/09/17 Renard, Abraham Joel MD [address] [place] [address] [address] [place] [address] [email or web address] PCP - General Internal Medicine 07/10/17 documented as of this encounter Additional Source Comments The information contained in this document represents components of the legal health record. It is not the complete legal health record.[facility]
--- OUTSIDE RECORDS SUMMARY | 2024-12-20 18:35 | XMS_ITS | Encounter Summary ---
Author Organization [facility] Address [address] [place] [address] Phone Care Team Providers Care Industrial Energy Engineer Name Role Phone Abraham Glynn MD Primary Care Provider [phone] Encounter Details Date Type Department Care Team (Late st Contact Info) Description 10/25/2022 Procedure Pass [facility] Endoscopy Admitting Dept Virtual Department [address] [place] [address] Social History Tobacco Use Types Packs/Day Years Used Date Smoking Tobacco: Never Smokeless Tobacco: Never Alcohol Use Standard Drinks/Week Comments Not Currently 0 (1 standard drink = 0.6 oz pur e alcohol) Education Answer Date Recorded Are you interested in more education? Not on ebony e 08/09/2022 Are you concerned about learning? Not on file 08/09/2022 No 08/09/2022 No 08/09/2022 Digital Access Answer Date Recorded No 09/09/2022 No 09/09/2022 Reliable internet access at home? Not on file 09/09/2022 Device with a working camera? Not on file Sex and Gender Information Value Date Recorded Sex Assigned at Male 08/29/2018 2:20 AM EDT Legal Sex Male 9:42 PM EDT Gender Identity Male 08/29/2018 2:20 AM EDT Sexual Orientation Straight 08/29/2018 2: 20 AM EDT documented as of this encounter Plan of Treatment Not on file documented as of this encounter Visit Diagnoses Not on filedocumented in this encounter Care Teams Industrial Energy Engineer Relationship Specialty Start Date End Date Abraham Glynn MD [address] [place] [address] [address] [place] [address] [email or web address] PCP - General Internal Medicine 07/10/17 documented as of this encounter Additional Source Comments The information contained in this document represents components of the legal health record. It is not the complete legal health record.[facility]
--- OUTSIDE RECORDS SUMMARY | 2024-12-20 18:35 | XMS_ITS | Encounter Summary ---
Author Organization [facility] Address [address] [facility] [address] [place] [address] Phone Care Team Providers Care Fisher Diver Net Name Role Phone Abraham Glynn MD Primary Care Provider [phone] Encounter Details Date Type Department Care Team (Late st Contact Info) Description 07/10/2017 Ancillary Orders [facility], X-Ray - [address] [address] Renard, Abraham Joel MD [address] [place] [address] [address] [place] [address] [email or web address] Cough Social History Tobacco Use Types Packs/Day Years [...] documented as of this encounter Results * XR CHEST PA AND LATERAL 2 VIEWS (07/10/2017 3:53 PM EDT) Anatomical Region Laterality Modality Chest Radiographic Christine ging 07/10/2017 3:55 PM EDT Impressions 07/10/2017 3:56 PM EDT No evidence of active cardiopulmonary disease. POS [id number] Narrative 07/10/2017 3:56 PM EDT No comparison studies are available. Frontal and lateral views reveal the lungs to be well-expanded and overall clear without focal infiltrates or pleural effusions present. The heart and pulmonary vessels are within normal limits in size and the visualized bony thorax appears intact when allowing for the presence of multiple sternotomy wires. Thoracolumbar scoliotic curvatures are present. Procedure Note Oliver Ly MD - 07/10/2017 No comparison studies are available. Frontal and lateral views reveal thelungs to be well-expanded and overall clear without focal infiltrates orpleural effusions present. The heart and pulmonary vessels are withinnormal limits in size and the visualized bony thorax appears intact whenallowing for the presence of multiple sternotomy wires. Thoracolumbarscoliotic curvatures are present. IMPRESSION: No evidence of active cardiopulmonary disease. POS [id number] Abraham Glynn MD IMG XR CHEST Final Result documented in this encounter Visit Diagnoses Diagnosis Cough Cough documented in this encounter Additional Health Concerns Infection Onset Date Last Indicated Resolved Time CoV-Risk 11/05/2019 11/06/2019 11/19/2019 3:55 AM EDT CoV-Risk Comment:Per Ambulatory Triage Form 12/25/2021 12/25/202112/25 1:50 PM EDT CoV-Exposed Comment:Positive COVID-19 12/25/2021 12/25/2021 12/25/2021 1:5 0 PM EDT COVID-19 12/25/2021 12/25/2021 01/15/2022 1:22 AM EDT documented as of this encounter Care Teams Fisher Diver Net Relationship Specialty Start Date End Date Abraham Glynn MD [address] [place] [address] [address] [place] [address] [email or web address] PCP - General Internal Medicine 07/10/17 documented as of this encounter Additional Source Comments The information contained in this document represents components of the legal health record. It is not the complete legal health record.[facility]
--- OUTSIDE RECORDS SUMMARY | 2024-12-20 18:35 | XMS_ITS | Encounter Summary ---
Author Organization [facility] Address [address] [place] [address] Phone Care Team Providers Care Bankruptcy Paralegal Name Role Phone Abraham Glynn MD Primary Care Provider [phone] Encounter Details Date Type Department Care Team (Latest Contact Info) Description 04/30/2019 Transcribe Orders [facility] Specimen Processing [address] [place] [address] Abraham Glynn MD 264 [facility] [address] [place] [address] [email or web address] Palpitations (Primary Dx) Social History Tobacco Use Types Packs/Day Years Used Date Smoking Tobacco: Never Alcohol Use Standard Drinks/Week Comments Not Currently 0 (1 standard drink = 0.6 oz pur e alcohol) Sex and Gender Information Value Date Recorded Sex Assigned at Male 08/29/2018 2:20 AM EDT Legal Sex Male 9:42 PM EDT Gender Identity Male 08/29/2018 2:20 AM EDT Sexual Orientation Straight 08/29/2018 2: 20 AM EDT documented as of this encounter Plan of Treatment Not on file documented as of this encounter Results * Magnesium (04/30/2019 2:19 PM EST) MAGNESIUM 2.1 1.6 - 2.6 mg/dL [facility] Blood 04/30/2019 2:19 PM EST 04/30/2019 2:22 PM EST Abraham Glynn MD LAB BLOOD ORDERABLES Final Resu lt [facility] [address] [place] [address] * CBC and differential (04/30/2019 2:19 PM EST) WBC 4.10 3.40 - 11.20 K/uL [facility] RBC 5.12 4.50 - 5.50 M/uL [facility] HGB 15.1 13.0 - 17.0 g/dL [facility] HCT 43.7 40.0 - 51.0 % [facility] PLT 182 130 - 400 K/uL [facility] MCV 85.4 79.0 - 98.0 fL [facility] MCH 29.5 27.0 - 34.8 pg [facility] MCHC 34.6 31.5 - 36.0 g/dL [facility] RDW 13.1 10.8 - 14.6 % [facility] MPV 11.2 9.4 - 12.4 fl [facility] NRBC 0.00 0.00 /100 WBCs [facility] ABSOLUTE NRBC 0.00 0.00 K/uL [facility] DIFF METHOD Auto [facility] NEUTS 52.2 45.30 - 77.70 % [facility] LYMPHS 35.4 12.30 - 39.70 % [facility] MONOS 10.5 4.10 - 12.80 % [facility] EOS 0.7 0 - 7.2 % [facility] BASOS 0.7 0 - 2.80 % [facility] Granulocytes, immature (%) 0.5 0.0 - 0.9 % [facility] ABSOLUTE NEUTS 2.14 1.40 - 7.70 K/uL [facility] ABSOLUTE LYMPHS 1.45 0.60 - 3.20 K/uL [facility] ABSOLUTE MONOS 0.43 0.11 - 0.59 K/uL [facility] ABSOLUTE EOS 0.03 0.01 - 0.50 K/uL [facility] ABSOLUTE BASOS 0.03 0.00 - 0.08 K/uL [facility] Granulocytes, immature 0.02 0.00 - 0.05 K/uL [facility] Blood 04/30/2019 2:19 PM EST 04/30/2019 2:22 PM EST Abraham Glynn MD LAB BLOOD ORDERABLES Final Resu lt Performing Organization Address [facility] Co de Phone Number [address] [address] * TSH with reflex (04/30/2019 2:19 PM EST) TSH 1.48 0.27 - 4.20 uIU/mL [facility] Blood 04/30/2019 2:19 PM EST 04/30/2019 2:22 PM EST Abraham Glynn MD LAB BLOOD ORDERABLES Final Resu lt Performing Organization Address [facility] de Phone Number [address] [address] * (ABNORMAL) Basic metabolic panel (04/30/2019 2:19 PM EST) SODIUM 139 133 - 146 mmol/L [facility] CHLORIDE 100 96 - 108 mmol/L [facility] POTASSIUM 3.8 3.3 - 5.1 mmol/L [facility] CO2 27 21 - 35 mmol/L [facility] BUN 13 6 - 19 mg/dL [facility] CREATININE 0.90 0.5 - 1.5 mg/dL [facility] GLUCOSE 61(L) 70 - 99 mg/dL [facility] CALCIUM 9.7 8.4 - 10.3 mg/dL [facility] EGFR 96 >59 mL/min/1.7 3m2 [facility] Comment:If patient is black, multiply result by 1.159. Estimated glomerular filtration rate calculated using the CKD-EPI equation. ANION GAP 16 10 - 20 mmol/L [facility] Blood 04/30/2019 2:19 PM EST 04/30/2019 2:22 PM EST Abraham Glynn MD LAB BLOOD ORDERABLES Final Resu lt Performing Organization Address City/[facility]/ZIP Co de Phone Number [facility] [address] [place] [address] documented in this encounter Visit Diagnoses Diagnosis Palpitations- Primary documented in this encounter Additional Health Concerns Infection Onset Date Last Indicated Resolved Time CoV-Risk 11/05/2019 11/06/2019 11/19/2019 3:55 AM EDT CoV-Risk Comment:Per Ambulatory Triage Form 12/25/2021 12/25/202112/25 1:50 PM EDT CoV-Exposed Comment:Positive COVID-19 12/25/2021 12/25/2021 12/25/2021 1:5 0 PM EDT COVID-19 12/25/2021 12/25/2021 01/15/2022 1:22 AM EDT documented as of this encounter Care Teams Bankruptcy Paralegal Relationship Specialty Start Date End Date Abraham Glynn MD [address] [place] [address] [address] [place] [address] [email or web address] PCP - General Internal Medicine 07/10/17 documented as of this encounter Additional Source Comments The information contained in this document represents components of the legal health record. It is not the complete legal health record.[facility]
--- OUTSIDE RECORDS SUMMARY | 2024-12-20 18:35 | XMS_ITS | Clinical Summary ---
Author Organization [facility] Address [address] [place] [address] Phone Care Team Providers Care Mortar Mixer Operator Name Role Phone Renard, Abraham Joel MD Primary Care Provider [phone] Allergies No known active allergies Medications butalbital-aceta minophen-caffein e-codeine (FIORICET WITH CODEINE) [id number] mg Cap 1 tab(s) 01/03/2011 Active SUMAtriptan (IMITREX) 100 MG tablet 1 tab Active warfarin (COUMADIN) 5 MG tablet 1 tablet Active lisinopril (PRINIVIL,ZESTRI L) 2.5 MG tablet Take 2.5 mg by mouth daily. Active metoprolol succinate (TOPROL-XL) 50 MG 24 hr tablet Take 50 mg by mouth daily. Active Social History Tobacco Use Types Packs/Day Years [...] Orientation Straight 08/29/2018 2: 20 AM EDT Last Filed Vital Signs Vital Sign Reading Time Taken Comments Blood Pressure 126/78 03/11/2020 7:00 PM EST Pulse 73 03/11/2020 8:31 PM EST Temperature 36.8 C (98.2 F) 03/11/2020 7:00 PM EST Respiratory Rate 18 03/11/2020 8:31 PM EST Oxygen Saturation 97% 03/11/2020 8:31 PM EST Inhaled Oxygen Concentration - - Weight 71.7 kg (158 lb) 08/29/2018 2:17 AM EDT Height 172.1 cm (5' 7.75 ) 12/14/2013 11:04 AM E DT Body Mass Index 24.2 12/14/2013 11:04 AM EDT Plan of Treatment Health Maintenance Due Date Last Done Comments DEPRESSION SCREENING 1976 HEPATITIS C SCREENING 1982 HIV ONE-TIME SCREENING (18-65 YEARS) 1982 SMOKING STATUS SCREENING (Once After 26 Yrs) 1990 COLOGUARD 2009 COLONOSCOPY 2009 COLORECTAL CANCER SCREENING 2009 FIT TEST 2009 FOBT 2009 SIGMOIDOSCOPY 2009 VIRTUAL COLONOSCOPY 2009 PNEUMOCOCCAL VACCINES (50+ years) (1 of 1 - PCV) 2014 ZOSTER VACCINES (1 of 2) 2014 CREATININE LEVEL 02/22/2022 02/22/2021, , 01/20/2020, Additional history exists POTASSIUM LEVEL 02/22/2022 02/22/2021, 04/1 09/2020, 01/20/2020, Additional history exists Adult Td,Tdap Booster 04/01/2023 04/01/2013 INFLUENZA VACCINE (#1) 2024 02/26/2021 COVID-19 VACCINE (2024- season) 2024 09/28/2020, 08/30/2020 LIPID PANEL 02/22/2026 02/22/2021, 10/0 11/2019, 06/23/2018, Additional history exists RSV VACCINE (1 - 1-dose 75+ series) 08/13/2039 HEPATITIS A VACCINES Aged Out No long er eligible based on patient's age to complete this topic HIB VACCINES Aged Out No longer eligi ble based on patient's age to complete this topic MENINGOCOCCAL VACCINES (ACWY) Aged Out No longer eligible based on patient's age to complete this topic MENINGOCOCCAL VACCINES (B) Aged Out N o longer eligible based on patient's age to complete this topic Medical Devices Not on file Procedures Procedure Name Priority Date/Time Associated Diagnosis Comments LIPID PANEL Routine 02/22/2021 10:55 AM EST Screening for prostate cancer COMPREHENSIVE METABOLIC PANEL Routine 02/22/2021 10:55 AM EST Screening for prostate cancer from Last 3 Months or Most Recently Relevant to Health Maintenance Results * (ABNORMAL) Comprehensive metabolic panel (02/22/2021 10:55 AM EST) SODIUM 139 133 - 146 mmol/L [facility] POTASSIUM 4.0 3.3 - 5.1 mmol/L [facility] CHLORIDE 101 96 - 108 mmol/L [facility] CO2 26 21 - 35 mmol/L [facility] BUN 18 6 - 19 mg/dL [facility] CREATININE 0.80 0.5 - 1.5 mg/dL [facility] GLUCOSE 118(H) 70 - 99 mg/dL [facility] ALBUMIN 4.6 3.9 - 4.8 g/dL [facility] TOTAL PROTEIN 7.4 6.5 - 8.0 g/dL [facility] CALCIUM 9.4 8.4 - 10.3 mg/dL [facility] ALKALINE PHOSPHATASE 77 39 - 117 U/L [facility] TOTAL BILIRUBIN 0.4 0.0 - 1.2 mg/dL [facility] AST 30 0 - 37 U/L [facility] ALT 32 0 - 40 U/L [facility] GLOBULIN 2.8 1 - 4.8 g/dL [facility] EGFR 100 >59 mL/min/1.7 3m2 [facility] Comment:Estimated glomerular filtration rate calculated using the CKD-EPI equation. ANION GAP 16 10 - 20 mmol/L [facility] Blood 02/22/2021 10:5 5 AM EST 02/22/2021 10:59 AM EST us Abraham Glynn MD LAB BLOOD ORDERABLES Final Resu lt Performing Organization Address [facility] Co de Phone Number [address] [address] * (ABNORMAL) Lipid panel (02/22/2021 10:55 AM EST) HDL 39 mg/dL [facility] Comment: Interpretation <40 mg/dL: Low HDL cholesterol (major risk factor for CHD) Greater than or equal to 60 mg/dL: High HDL cholesterol ( negative risk factor for CHD) HDL - cholesterol is affected by a number of factors, e.g. smoking, excerise, hormones, sex and age. CHOLESTEROL 211 0 - 240 mg/dL [facility] TRIGLYCERIDES 201(H) 30 - 160 mg/dL [facility] LDL 132(H) 50 - 129 mg/dL [facility] Comment: LDL levels in terms of risk for coronary heart disease: <100 mg/dL: Optimal 100-129 mg/dL: Near or above optimal 130-159 mg/dL: Borderline high 160-189 mg/dL: High >190 mg/dL: Very High CARDIAC RISK RATIO 5.4(H) 3.4 - 5.0 C [facility] Blood 02/22/2021 10:5 5 AM EST 02/22/2021 10:59 AM EST us Abraham Glynn MD LAB BLOOD ORDERABLES Final Resu lt Performing Organization Address [facility]/ZIP Co de Phone Number [address] [address] from Last 3 Months or Most Recently Relevant to Health Maintenance Insurance [employer] P[employer]IGNA [employer] PPO CIGNA [employer] PPO CIGNA [employer] PPO CIGNA [employer] PPO CIGNA [employer] PPO CIGNA [employer] PPO CIGNA [employer] PPO CIGNA [employer] PPO Care Teams Mortar Mixer Operator Relationship Specialty Start Date End Date Renard, Abraham Joel MD [address] [place] [address] & [address] [place] [phone] [email or web address] PCP - General Internal Medicine 07/10/17 Additional Source Comments The information contained in this document represents components of the legal health record. It is not the complete legal health record.[facility]
--- OUTSIDE RECORDS SUMMARY | 2024-12-20 18:35 | XMS_ITS | Encounter Summary ---
Author Organization [facility] Address [address] [place] [address] Phone Care Team Providers Care Leather Novelty Parts Cutter Name Role Phone Renard, Abraham Joel MD Primary Care Provider [phone] Encounter Details Date Type Department Care Team (Latest Contact Info) Description 11/24/2018 Transcribe Orders Virtual Department [address] [place] [address] Eliazar Hall MD [address] [place] [address], [address] [place] [address] [email or web address] TIA (transient ischemic attack) (Primary Dx); Visual loss Social History Tobacco Use Types Packs/Day Years [...] documented as of this encounter Results * US Carotid Duplex (Bilateral) (11/27/2018 1:05 PM EDT) Anatomical Region Laterality Modality Heart, Thoracic Vasculature, Neck Ultrasound 11/27/2018 3:32 PM EDT Impressions 11/27/2018 4:28 PM EDT Tiny amount of noncalcified plaque in the carotid bulbs. No hemodynamically significant carotid arterial stenosis. Hemodynamic criteria compatible with mild (less than 50%) stenosis. POS- [id number] Edited by: Sneha Abraham on 11/27/2018 4:26 PM Narrative 11/27/2018 4:28 PM EDT EXAM: US CAROTID DUPLEX (BILATERAL) HISTORY: T.I.A., VISUAL LOSS TECHNIQUE: Grayscale, color Doppler and spectral Doppler ultrasound imaging of the extracranial carotid arterial system. COMPARISON: None. FINDINGS: RIGHT: Carotid artery morphology: Tiny amount of noncalcified plaque in the carotid bulb. Peak systolic velocity in the right ICA is 98 cm/sec. Peak systolic velocity in the right CCA is 86 cm/sec. ICA/CCA ratio is 1.1. No velocity elevation or significant flow turbulence. Findings compatible with mild (less than 50%) stenosis. Vertebral artery: Normal antegrade blood flow. LEFT: Carotid artery morphology: Tiny amount of noncalcified plaque in the carotid bulb. Peak systolic velocity in the left ICA is 98 cm/sec. Peak systolic velocity in the left CCA is 93 cm/sec. ICA/CCA ratio is 1.1. No velocity elevation or significant flow turbulence. Findings compatible with mild (less than 50%) stenosis. Vertebral artery: Normal antegrade blood flow. Any stenosis measurement is relative to the distal ICA diameters. Procedure Note Micheline Waters MD - 11/27/2018 EXAM: US CAROTID DUPLEX (BILATERAL) HISTORY: T.I.A., VISUAL LOSS TECHNIQUE: Grayscale, color Doppler and spectral Doppler ultrasoundimaging of the extracranial carotid arterial system. COMPARISON: None. FINDINGS: RIGHT: Carotid artery morphology: Tiny amount of noncalcified plaque in thecarotid bulb. Peak systolic velocity in the right ICA is 98 cm/sec. Peak systolicvelocity in the right CCA is 86 cm/sec. ICA/CCA ratio is 1.1. No velocityelevation or significant flow turbulence. Findings compatible with mild(less than 50%) stenosis. Vertebral artery: Normal antegrade blood flow. LEFT: Carotid artery morphology: Tiny amount of noncalcified plaque in thecarotid bulb. Peak systolic velocity in the left ICA is 98 cm/sec. Peak systolicvelocity in the left CCA is 93 cm/sec. ICA/CCA ratio is 1.1. No velocityelevation or significant flow turbulence. Findings compatible with mild(less than 50%) stenosis. Vertebral artery: Normal antegrade blood flow. Any stenosis measurement is relative to the distal ICA diameters. IMPRESSION: Tiny amount of noncalcified plaque in the carotid bulbs. Nohemodynamically significant carotid arterial stenosis. Hemodynamiccriteria compatible with mild (less than 50%) stenosis. POS- [id number] Edited by: Sneha Abraham on 11/27/2018 4:26 PM us Eliazar Hall MD CV US NEUROVASCULAR Final Re sult documented in this encounter Visit Diagnoses Diagnosis TIA (transient ischemic attack)- Primary Unspecified transient cerebral ischemia Visual loss Unspecified visual loss TIA (transient ischemic attack) Unspecified transient cerebral ischemia Visual loss Unspecified visual loss documented in this encounter Additional Health Concerns Infection Onset Date Last Indicated Resolved Time CoV-Risk 11/05/2019 11/06/2019 11/19/2019 3:55 AM EDT CoV-Risk Comment:Per Ambulatory Triage Form 12/25/2021 12/25/202112/25 1:50 PM EDT CoV-Exposed Comment:Positive COVID-19 12/25/2021 12/25/2021 12/25/2021 1:5 0 PM EDT COVID-19 12/25/2021 12/25/2021 01/15/2022 1:22 AM EDT documented as of this encounter Care Teams Leather Novelty Parts Cutter Relationship Specialty Start Date End Date Renard, Abraham Joel MD [address] [place] [address] & [address] [place] [phone] [email or web address] PCP - General Internal Medicine 07/10/17 documented as of this encounter Additional Source Comments The information contained in this document represents components of the legal health record. It is not the complete legal health record.[facility]
--- OUTSIDE RECORDS SUMMARY | 2024-12-20 18:35 | XMS_ITS | Encounter Summary ---
Author Organization [facility] Address [address] [place] [address] [place] [address] Phone Care Team Providers Care Auditor Tax Name Role Phone Abraham Glynn MD Primary Care Provider Encounter Details Date Type Department Care Team (Latest Contact Info) Description 01/21/2019 Transcribe Orders [facility] [address] [place] [address] Renard, Abraham Joel MD [address] [place] [address] [address] [place] [address] [email or web address] Routine general medical examination at a health care facility (Primary Dx) Social History Tobacco Use Types [...] as of this encounter Results * (ABNORMAL) CBC and differential (01/21/2019 7:40 AM EDT) WBC 3.43 3.40 - 11.20 K/uL [facility] RBC 5.13 4.50 - 5.50 M/uL [facility] HGB 15.0 13.0 - 17.0 g/dL [facility] HCT 43.4 40.0 - 51.0 % [facility] PLT 204 130 - 400 K/uL [facility] MCV 84.6 79.0 - 98.0 fL [facility] MCH 29.2 27.0 - 34.8 pg [facility] MCHC 34.6 31.5 - 36.0 g/dL [facility] RDW 12.8 10.8 - 14.6 % [facility] MPV 11.3 9.4 - 12.4 fl [facility] NRBC 0.00 0.00 /100 WBCs [facility] ABSOLUTE NRBC 0.00 0.00 K/uL [facility] DIFF METHOD Auto [facility] NEUTS 43.6(L) 45.30 - 77.70 % [facility] LYMPHS 42.6(H) 12.30 - 39.70 % [facility] MONOS 11.1 4.10 - 12.80 % [facility] EOS 0.9 0 - 7.2 % [facility] BASOS 1.2 0 - 2.80 % [facility] Granulocytes, immature (%) 0.6 0.0 - 0.9 % [facility] ABSOLUTE NEUTS 1.50 1.40 - 7.70 K/uL [facility] ABSOLUTE LYMPHS 1.46 0.60 - 3.20 K/uL [facility] ABSOLUTE MONOS 0.38 0.11 - 0.59 K/uL [facility] ABSOLUTE EOS 0.03 0.01 - 0.50 K/uL [facility] ABSOLUTE BASOS 0.04 0.00 - 0.08 K/uL [facility] Granulocytes, immature 0.02 0.00 - 0.05 K/uL [facility] Blood 01/21/2019 7:40 AM EDT 01/21/2019 8:07 AM EDT us Abraham Glynn MD LAB BLOOD ORDERABLES Final Resu lt [facility] [address] [place] [address] * Basic metabolic panel (01/21/2019 7:40 AM EDT) SODIUM 140 133 - 146 mmol/L [facility] CHLORIDE 104 96 - 108 mmol/L [facility] POTASSIUM 4.6 3.3 - 5.1 mmol/L [facility] CO2 28 21 - 35 mmol/L [facility] BUN 17 6 - 19 mg/dL [facility] CREATININE 0.90 0.5 - 1.5 mg/dL [facility] GLUCOSE 94 70 - 99 mg/dL [facility] CALCIUM 9.7 8.4 - 10.3 mg/dL [facility] EGFR 96 >59 mL/min/1.7 3m2 [facility] Comment:If patient is black, multiply result by 1.159. Estimated glomerular filtration rate calculated using the CKD-EPI equation. ANION GAP 13 10 - 20 mmol/L [facility] Blood 01/21/2019 7:40 AM EDT 01/21/2019 8:07 AM EDT us Abraham Glynn MD LAB BLOOD ORDERABLES Final Resu lt Performing Organization Address City/State/[place] Co de Phone Number [facility] [address] [place] [address] documented in this encounter Visit Diagnoses Diagnosis Routine general medical examination at a health care facility- Primary documented in this encounter Additional Health Concerns Infection Onset Date Last Indicated Resolved Time CoV-Risk 11/05/2019 11/06/2019 11/19/2019 3:55 AM EDT CoV-Risk Comment:Per Ambulatory Triage Form 12/25/2021 12/25/202112/25 1:50 PM EDT CoV-Exposed Comment:Positive COVID-19 12/25/2021 12/25/2021 12/25/2021 1:5 0 PM EDT COVID-19 12/25/2021 12/25/2021 01/15/2022 1:22 AM EDT documented as of this encounter Care Teams Auditor Tax Relationship Specialty Start Date End Date Abraham Glynn MD [address] [place] [address] [address] & [address] [place] [phone] [email or web address] PCP - General Internal Medicine 07/10/17 documented as of this encounter Additional Source Comments The information contained in this document represents components of the legal health record. It is not the complete legal health record.[facility]
--- OUTSIDE RECORDS SUMMARY | 2024-12-20 18:35 | XMS_ITS | Encounter Summary ---
Author Organization [facility] Address [address] [place] [address] Phone Care Team Providers Care Litharge Supervisor Name Role Phone Renard, Abraham Joel MD Primary Care Provider [phone] Encounter Details Date Type Department Care Team (Latest Contact Info) Description 10/29/2017 Transcribe Orders [facility] Laboratory [address] [place] [address] Mikel Guidry MD Fever, unspecified fever cause (Primary Dx); Nonintractable headache, unspecified chronicity pattern, unspecified headache type; Diarrhea, unspecified type Social History Tobacco Use Types Packs/Day [...] documented as of this encounter Results * C. difficile PCR (10/29/2017 5:12 PM EDT) C.DIFFICILE PCR Negative Negative [facility] C.DIFFICILE STRAIN PRESUMPTIVE NEGATIVE PRESUMPTIVE NEGATIVE [facility] Comment:Detection of 027/NAP 1/BI strains of C.difficile is presumptive and is solely for epidemiological purposes and is not intended to guide or monitor treatment of infections. Stool (Stool) 10/29/2017 5:1 2 PM EDT 10/29/2017 5:14 PM EDT us Mikel Guidry MD MICROBIOLOGY - GENERAL ORDERABL ES Final Result Performing Organization Address [facility] [place] [facility]/ZIP Co de Phone Number [address] [address] * Giardia antigen screen (10/29/2017 5:12 PM EDT) ST GIARDIA ANTIGEN Negative Negative [facility] DPT OF LAB MED AND PAT+ Stool (Stool) 10/29/2017 5:1 2 PM EDT 10/29/2017 5:14 PM EDT Mikel Guidry MD MICROBIOLOGY - GENERAL ORDERABL ES Final Result Performing Organization Address [facility] [place] [facility] Co de Phone Number [facility] DPT OF LAB MED AND PAT+ [address] [place] [address] * Stool culture (10/29/2017 5:12 PM EDT) Specimen Source/ Description STOOL FRESH STOOL STOOL [facility] Special Requests None [facility] Culture/Test NO SALMONELLA, SHIGELLA OR CAMPYLOBACTER ISOLATED [facility] Report Status 11/01/2017 FINAL [facility] Stool (Stool) 10/29/2017 5:1 2 PM EDT 10/29/2017 5:13 PM EDT Mikel Guidry MD MICROBIOLOGY - GENERAL ORDERABL ES Final Result Performing Organization Address [facility] [place] [facility] Co de Phone Number [address] [address] * Malaria/babesia exam (10/29/2017 12:24 PM EDT) Specimen Source/ Description WHOLE BLOOD [facility] Special Requests None [facility] MALARIA SMEAR No Malaria or Babesia observed [facility] Report Status 10/29/2017 FINAL [facility] Other (Whole blood) 10/29/2017 12:24 PM EDT 10/29/2017 12:28 PM EDT Mikel Guidry MD NON CULTURE MICROBIOLOGY Final Result [facility] [address] [place] [address] * Babesia species PCR (10/29/2017 12:24 PM EDT) B.Microti PCR Negative Negative [facility] DPT OF LAB MED AND PAT+ B.Duncani PCR Negative Negative [facility] DPT OF LAB MED AND PAT+ B.Divergens/MO-1 PCR Negative Negative [facility] DPT OF LAB MED AND PAT+ Comment: (NOTE) ADDITIONAL INFORMATION This test was developed and its performance characteristics determined by [facility] in a manner consistent with CLIA requirements. This test has not been cleared or approved by the U.S. Food and Drug Administration. Blood 10/29/2017 12:2 4 PM EDT 10/29/2017 12:27 PM EDT us Mikel Guidry MD LAB BLOOD ORDERABLES Final Resu lt [facility] DPT OF LAB MED AND PAT+ [address] [place] [address] * Ehrlichia/anaplasma PCR (10/29/2017 12:24 PM EDT) ANAPLASMA PHAGOCYTO Negative Negative [facility] DPT OF LAB MED AND PAT+ EHRLICHIA CHAFFEENS Negative Negative [facility] DPT OF LAB MED AND PAT+ EHRL EWINGII/CANIS Negative Negative [facility] DPT OF LAB MED AND PAT+ EHRL MURIS-LIKE Negative Negative [facility] DPT OF LAB MED AND PAT+ Comment: (NOTE) ADDITIONAL INFORMATION This test was developed and its performance characteristics determined by [facility] in a manner consistent with CLIA requirements. This test has not been cleared or approved by the U.S. Food and Drug Administration. Blood 10/29/2017 12:2 4 PM EDT 10/29/2017 12:27 PM EDT us Mikel Guidry MD LAB BLOOD ORDERABLES Final Resu lt [facility] DPT OF LAB MED AND PAT+ [address] [place] [address] * Lyme screen with reflex to Western blot, blood (10/29/2017 12:24 PM EDT) Lyme AB IgG Negative Negative [facility] Lyme AB IgM Negative Negative [facility] Blood 10/29/2017 12:2 4 PM EDT 10/29/2017 12:26 PM EDT Mikel Guidry MD LAB BLOOD ORDERABLES Final Resu lt Performing Organization Address [facility] [place] [facility] Co de Phone Number [address] [address] * Blood culture, routine (10/29/2017 12:24 PM EDT) Specimen Source/ Description BLOOD BLOOD [facility] Special Requests None [facility] Culture/Test NO GROWTH 5 DAYS [facility] Report Status 11/03/2017 FINAL [facility] Blood (Blood) 10/29/2017 12: 24 PM EDT 10/29/2017 12:27 PM EDT Mikel Guidry MD MICROBIOLOGY - GENERAL ORDERABL ES Final Result Performing Organization Address [facility] [place] [facility]/ZIP Co de Phone Number [address] [address] * Blood culture, routine (10/29/2017 12:24 PM EDT) Specimen Source/ Description BLOOD BLOOD [facility] Special Requests None [facility] Culture/Test NO GROWTH 5 DAYS [facility] Report Status 11/03/2017 FINAL [facility] Blood (Blood) 10/29/2017 12: 24 PM EDT 10/29/2017 12:26 PM EDT us Mikel Guidry MD MICROBIOLOGY - GENERAL ORDERABL ES Final Result Performing Organization Address [facility] [place] [facility] Co de Phone Number [address] [address] * Sedimentation rate (ESR) (10/29/2017 12:24 PM EDT) ESR 11 0 - 20 mm/h [facility] Blood 10/29/2017 12:2 4 PM EDT 10/29/2017 12:26 PM EDT Mikel Guidry MD LAB BLOOD ORDERABLES Final Resu lt Performing Organization Address [facility] de Phone Number [address] [address] * (ABNORMAL) C-Reactive Protein (10/29/2017 12:24 PM EDT) C REACTIVE PROTEIN 22.8(H) 0.0 - 4.0 mg/L [facility] Comment:New Reference Range and Measuring Units effective 08/27/17. Blood 10/29/2017 12:2 4 PM EDT 10/29/2017 12:26 PM EDT Mikel Guidry MD LAB BLOOD ORDERABLES Final Resu lt Performing Organization Address [facility] [place] [facility] Co de Phone Number [address] [address] * (ABNORMAL) CBC and differential (10/29/2017 12:24 PM EDT) WBC 5.73 3.40 - 11.20 K/uL [facility] RBC 5.18 4.50 - 5.50 M/uL [facility] HGB 15.3 13.0 - 17.0 g/dL [facility] HCT 44.1 40.0 - 51.0 % [facility] PLT 166 130 - 400 K/uL [facility] MCV 85.1 79.0 - 98.0 fL [facility] MCH 29.5 27.0 - 34.8 pg [facility] MCHC 34.7 31.5 - 36.0 g/dL [facility] RDW 13.0 10.8 - 14.6 % [facility] MPV 11.6 9.4 - 12.4 [facility] NRBC 0.00 /100 WBCs [facility] ABSOLUTE NRBC 0.00 K/uL [facility] DIFF METHOD Auto [facility] NEUTS 79.1(H) 45.30 - 77.70 % [facility] LYMPHS 11.3(L) 12.30 - 39.70 % [facility] MONOS 9.1 4.10 - 12.80 % [facility] EOS 0.0 0 - 7.2 % [facility] BASOS 0.3 0 - 2.80 % [facility] Granulocytes, immature (%) 0.2 0.0 - 0.9 % [facility] ABSOLUTE NEUTS 4.53 1.40 - 7.70 K/uL [facility] ABSOLUTE LYMPHS 0.65 0.60 - 3.20 K/uL [facility] ABSOLUTE MONOS 0.52 0.11 - 0.59 K/uL [facility] ABSOLUTE EOS 0.00(L) 0.01 - 0.50 K/uL [facility] ABSOLUTE BASOS 0.02 0.00 - 0.08 K/uL [facility] Granulocytes, immature 0.01 0.00 - 0.05 K/uL [facility] Blood 10/29/2017 12:2 4 PM EDT 10/29/2017 12:26 PM EDT us Mikel Guidry MD LAB BLOOD ORDERABLES Final Resu lt [facility] [address] [place] [address] * Comprehensive metabolic panel (10/29/2017 12:24 PM EDT) SODIUM 137 133 - 146 mmol/L [facility] POTASSIUM 4.0 3.3 - 5.1 mmol/L [facility] CHLORIDE 98 96 - 108 mmol/L [facility] CO2 26 21 - 35 mmol/L [facility] BUN 12 6 - 19 mg/dL [facility] CREATININE 1.00 0.5 - 1.5 mg/dL [facility] GLUCOSE 97 70 - 99 mg/dL [facility] ALBUMIN 4.0 3.9 - 4.8 g/dL [facility] TOTAL PROTEIN 7.3 6.5 - 8.0 g/dL [facility] CALCIUM 9.7 8.4 - 10.3 mg/dL [facility] ALKALINE PHOSPHATASE 61 39 - 117 U/L [facility] TOTAL BILIRUBIN 0.7 0.0 - 1.2 mg/dL [facility] AST 21 0 - 37 U/L [facility] ALT 16 0 - 40 U/L [facility] GLOBULIN 3.3 1 - 4.8 g/dL [facility] EGFR 86 >59 mL/min/1.7 3m2 [facility] Comment:If patient is black, multiply result by 1.159. Estimated glomerular filtration rate calculated using the CKD-EPI equation. ANION GAP 17 10 - 20 mmol/L [facility] Blood 10/29/2017 12:2 4 PM EDT 10/29/2017 12:26 PM EDT us Mikel Guidry MD LAB BLOOD ORDERABLES Final Resu lt Performing Organization Address City/State/[facility] Co de Phone Number [address] [address] documented in this encounter Visit Diagnoses Diagnosis Fever, unspecified fever cause- Primary Nonintractable headache, unspecified chronicity pattern, unspecified headache type Diarrhea, unspecified type documented in this encounter Additional Health Concerns Infection Onset Date Last Indicated Resolved Time CoV-Risk 11/05/2019 11/06/2019 11/19/2019 3:55 AM EDT CoV-Risk Comment:Per Ambulatory Triage Form 12/25/2021 12/25/202112/25 1:50 PM EDT CoV-Exposed Comment:Positive COVID-19 12/25/2021 12/25/2021 12/25/2021 1:5 0 PM EDT COVID-19 12/25/2021 12/25/2021 01/15/2022 1:22 AM EDT documented as of this encounter Care Teams Litharge Supervisor Relationship Specialty Start Date End Date Renard, Abraham Joel MD [address] [place] [address] [address] [place], [place] [id number] [email or web address] PCP - General Internal Medicine 07/10/17 documented as of this encounter Additional Source Comments The information contained in this document represents components of the legal health record. It is not the complete legal health record.[facility]
--- OUTSIDE RECORDS SUMMARY | 2024-12-20 18:35 | XMS_ITS | Encounter Summary ---
Author Organization [facility] Address [address] [facility] [address] [place] [address] Phone Care Team Providers Care Pin Feather Machine Operator Name Role Phone Unknown, Unknown Primary Care Provider Abraham Galvan MD Primary Care Provider [phone] Encounter Details Date Type Department Care Team (Latest Contact Info) Description 03/05/2017 Transcribe Orders [facility] [address] [place] [address] Renard, Abraham Joel MD [address] [place] [address] [address] [place] [address] [email or web address] Heart valve replaced (Primary Dx) Social [...] EST) PT 34.3(H) 10.2 - 12.9 sec [facility] INR 3.0(H) 0.9 - 1.1 [facility] Comment:Therapeutic range fo r oral Vitamin K antagonists: 2.0-3.5 Blood 03/05/2017 10:3 1 AM EST 03/05/2017 10:36 AM EST Abraham Glynn MD LAB BLOOD ORDERABLES Final Resu lt [facility] [address] [place] [address] documented in this encounter Visit Diagnoses Diagnosis [...] documented as of this encounter Care Teams Pin Feather Machine Operator Relationship Specialty Start Date End Date Unknown, Unknown, MD PCP - General 03/05/17 07/09/17 Renard, Abraham Joel MD [address] [facility] [address] [place] [address] [email or web address] PCP - General Internal Medicine 07/10/17 documented as of this encounter Additional Source Comments The information contained in this document represents components of the legal health record. It is not the complete legal health record.[facility]
--- OUTSIDE RECORDS SUMMARY | 2024-12-20 18:35 | XMS_ITS | Encounter Summary ---
Author Organization [facility] Address [address] [place] [address] Phone Care Team Providers Care Hvac Installer Name Role Phone Abraham Glynn MD Primary Care Provider [phone] Encounter Details Date Type Department Care Team (Late st Contact Info) Description 07/10/2017 Ancillary Orders Virtual Department [address] [place] [address] RenardAbraham MD [address] [facility] [address] [place] [address] [email or web address] Cough Social History Tobacco Use Types [...] as of this encounter Visit Diagnoses Diagnosis Cough documented in this encounter Additional Health Concerns Infection Onset Date Last Indicated Resolved Time CoV-Risk 11/05/2019 11/06/2019 11/19/2019 3:55 AM EDT CoV-Risk Comment:Per Ambulatory Triage Form 12/25/2021 12/25/202112/25 1:50 PM EDT CoV-Exposed Comment:Positive COVID-19 12/25/2021 12/25/2021 12/25/2021 1:5 0 PM EDT COVID-19 12/25/2021 12/25/2021 01/15/2022 1:22 AM EDT documented as of this encounter Care Teams Hvac Installer Relationship Specialty Start Date End Date Renard, Abraham Joel MD [address] [place] [address] [address] [place] [address] [email or web address] PCP - General Internal Medicine 07/10/17 documented as of this encounter Additional Source Comments The information contained in this document represents components of the legal health record. It is not the complete legal health record.[facility]
--- OUTSIDE RECORDS SUMMARY | 2024-12-20 18:35 | XMS_ITS | Encounter Summary ---
Author Organization [facility] Address [address] [place] [address] Phone Care Team Providers Care Putty And Caulking Supervisor Name Role Phone Renard, Abraham Joel MD Primary Care Provider [phone] Encounter Details Date Type Department Care Team (Late st Contact Info) Description 03/11/2020 Procedure Pass [facility], Ct Scan - [facility] [address] [place] [address] Social History Tobacco Use Types Packs/Day Years [...] AM EDT documented as of this encounter Functional Status * Calculated C-SSRS Risk Score (Lifetime/Recent) Answer Date of Assessment Author No Risk Indicated 03/11/2020 7:00 PM Juan Waterman RN * [place] Suicide Severity Rating Scale (Screener/Recent Self-Report) Question Answer Date of Assessment Author 1. Wish to be (Past 1 Month) No 020 7:00 PM Juan Waterman RN 2. Non-Specific Active Suici bronson Thoughts (Past 1 Month) No 03/11/2020 7:00 PM Portia Waterman RN 6. Suicidal Behavior (Lifetime) No 0 7:00 PM Juan Waterman RN documented as of this encounter Plan of Treatment Not on file documented as of this encounter Visit Diagnoses Not on filedocumented in this encounter Additional Health Concerns Infection Onset Date Last Indicated Resolved Time CoV-Risk Comment:Per Ambulatory Triage Form 12/25/2021 12/25/202112/25 1:50 PM EDT CoV-Exposed Comment:Positive COVID-19 12/25/2021 12/25/2021 12/25/2021 1:5 0 PM EDT COVID-19 12/25/2021 12/25/2021 01/15/2022 1:22 AM EDT documented as of this encounter Care Teams Putty And Caulking Supervisor Relationship Specialty Start Date End Date RneardAbraham bauer MD [address] [place] [address] [address] [place] [address] [email or web address] PCP - General Internal Medicine 07/10/17 documented as of this encounter Additional Source Comments The information contained in this document represents components of the legal health record. It is not the complete legal health record.[facility]
== END 2024-12-20 16:10 | disposition home or self-care (01) ==
LOC: HO.ACS 15:47
PROVIDERS: PCP Internal Medicine; Visit Provider Internal Medicine Medical Oncology
DX: Z79.01 Long term (current) use of anticoagulants (principal)

== ENCOUNTER → 2024-12-20 15:47 | Outpatient (BNVA) | payer BC, SELFPAY | PROVIDERS: PCP Internal Medicine; Visit Provider Internal Medicine Medical Oncology | DX: Z95.2 Presence of prosthetic heart valve (principal); Z79.01 Long term (current) use of anticoagulants; Z51.81 Encounter for therapeutic drug level monitoring | CPT/HCPCS: 85610; 99211 ==

== ENCOUNTER 2025-01-13 06:15 | Outpatient (REF) | payer BC, SELFPAY ==
--- OUTSIDE RECORDS SUMMARY | 2025-01-13 06:18 | XMS_ITS | Encounter Summary ---
Author Organization [facility] Address [address] [place] [address] Phone Care Team Providers Care Tour Agent Name Role Phone Renard, Abraham Joel MD Primary Care Provider [phone] Encounter Details Date Type Department Care Team (Latest Contact Info) Description 11/24/2018 Transcribe Orders Virtual Department [address] [place] [address] Eliazar Hall MD [address] [place] [address], [address] [place] [address] [email or web address] TIA (transient ischemic attack) (Primary Dx); Visual [...] documented as of this encounter Care Teams Tour Agent Relationship Specialty Start Date End Date Renard, Abraham Joel MD [address] [place] [address] & [address] [place] [address] [email or web address] PCP - General Internal Medicine 07/10/17 documented as of this encounter Additional Source Comments The information contained in this document represents components of the legal health record. It is not the complete legal health record.[facility]
--- OUTSIDE RECORDS SUMMARY | 2025-01-13 06:18 | XMS_ITS | Encounter Summary ---
Author Organization [facility] Address [address] [place] [address] [place] [address] Phone Care Team Providers Care Early Childhood Services Coordinator Name Role Phone Unknown, Unknown Primary Care Provider Abraham Galvan MD Primary Care Provider [phone] Encounter Details Date Type Department Care Team (Latest Contact Info) Description 03/05/2017 Transcribe Orders [facility] [address] [place] [address] Harmeet Muñoz MD [address] [place] [address] Routine general medical examination at a health [...] EST) PT 34.3(H) 10.2 - 12.9 sec [facility] INR 3.0(H) 0.9 - 1.1 [facility] Comment:Therapeutic range fo r oral Vitamin K antagonists: 2.0-3.5 Blood 03/05/2017 10:3 1 AM EST 03/05/2017 10:36 AM EST us Abraham Glynn MD LAB BLOOD ORDERABLES Final Resu lt Performing Organization Address [facility]/ZIP Co de Phone Number [address] [address] * Magnesium (03/05/2017 10:31 AM EST) Pathologist [facility] [place] MAGNESIUM 2.2 1.6 - 2.6 mg/dL [facility] Blood 03/05/2017 10:3 1 AM EST 03/05/2017 10:36 AM EST Harmeet Muñoz MD LAB BLOOD ORDERABLES Final Result Performing Organization Address [facility] Co de Phone Number [address] [address] * Basic metabolic panel (03/05/2017 10:31 AM EST) SODIUM 142 133 - 146 mmol/L [facility] CHLORIDE 103 96 - 108 mmol/L [facility] POTASSIUM 4.5 3.3 - 5.1 mmol/L [facility] CO2 29 21 - 35 mmol/L [facility] BUN 16 6 - 19 mg/dL [facility] CREATININE 0.80 0.5 - 1.5 mg/dL [facility] GLUCOSE 82 70 - 99 mg/dL [facility] CALCIUM 9.8 8.4 - 10.3 mg/dL [facility] EGFR >60 60 - 1000 mL/min/1.7 3m2 [facility] Comment:Abnormal if <60. If patient is -[place], multiply the result by 1.21. ANION GAP 15 10 - 20 mmol/L [facility] Blood 03/05/2017 10:3 1 AM EST 03/05/2017 10:36 AM EST Harmeet Muñoz MD LAB BLOOD ORDERABLES Final Result [facility] [address] [place] [address] documented in this encounter Visit Diagnoses Diagnosis [...] documented as of this encounter Care Teams Early Childhood Services Coordinator Relationship Specialty Start Date End Date Unknown, Unknown, MD PCP - General 03/05/17 07/09/17 Renard, Abraham Joel MD [address] [place] [address] & [address] [place] [address] [email or web address] PCP - General Internal Medicine 07/10/17 documented as of this encounter Additional Source Comments The information contained in this document represents components of the legal health record. It is not the complete legal health record.[facility]
--- OUTSIDE RECORDS SUMMARY | 2025-01-13 06:18 | XMS_ITS | Encounter Summary ---
Author Organization [facility] Address [address] [facility] [address] [place] [address] Phone Care Team Providers Care Laboratory Technologist Name Role Phone Unknown, Unknown Primary Care Provider Abraham Galvan MD Primary Care Provider [phone] Encounter Details Date Type Department Care Team (Latest Contact Info) Description 05/13/2017 Transcribe Orders [facility] [address] [place] [address] RenardAbraham MD [address] [place] [address] [address] [place] [address] [email or web address] Heart valve replaced (Primary Dx) Social [...] documented as of this encounter Care Teams Laboratory Technologist Relationship Specialty Start Date End Date Unknown, Unknown, MD PCP - General 03/05/17 07/09/17 Renard, Abraham Joel MD [address] [place] [address] [address] [place] [address] [email or web address] PCP - General Internal Medicine 07/10/17 documented as of this encounter Additional Source Comments The information contained in this document represents components of the legal health record. It is not the complete legal health record.[facility]
--- OUTSIDE RECORDS SUMMARY | 2025-01-13 06:18 | XMS_ITS | Encounter Summary ---
Author Organization [facility] Address [address] [place] [address] Phone Care Team Providers Care Leather Goods I Assembler Name Role Phone Abraham Glynn MD Primary Care Provider [phone] Encounter Details Date Type Department Care Team (Late st Contact Info) Description 07/10/2017 Ancillary Orders Virtual Department [address] [place] [address] RenardAbraham MD [address] [facility] [address] [place] [address] [email or web address] Cough Social History Tobacco Use Types Packs/Day [...] as of this encounter Care Teams Leather Goods I Assembler Relationship Specialty Start Date End Date Renard, Abraham Joel MD [address] [place] [address] [address] [place] [address] [email or web address] PCP - General Internal Medicine 07/10/17 documented as of this encounter Additional Source Comments The information contained in this document represents components of the legal health record. It is not the complete legal health record.[facility]
--- OUTSIDE RECORDS SUMMARY | 2025-01-13 06:18 | XMS_ITS | Clinical Summary ---
Author Organization [facility] Address [address] [place] [address] Phone Care Team Providers Care Bone Worker Name Role Phone Renard, Abraham Joel MD Primary Care Provider [phone] Allergies No known active allergies Medications butalbital-aceta minophen-caffein e-codeine (FIORICET WITH CODEINE) [id number] mg Cap 1 tab(s) 01/03/2011 Active SUMAtriptan [...] EST) SODIUM 139 133 - 146 mmol/L [facility] POTASSIUM 4.0 3.3 - 5.1 mmol/L [facility] CHLORIDE 101 96 - 108 mmol/L [facility] CO2 26 21 - 35 mmol/L [facility] BUN 18 6 - 19 mg/dL [facility] CREATININE 0.80 0.5 - 1.5 mg/dL [facility] GLUCOSE 118(H) 70 - 99 mg/dL [facility] ALBUMIN 4.6 3.9 - 4.8 g/dL [facility] TOTAL PROTEIN 7.4 6.5 - 8.0 g/dL [facility] CALCIUM 9.4 8.4 - 10.3 mg/dL [facility] ALKALINE PHOSPHATASE 77 39 - 117 U/L [facility] TOTAL BILIRUBIN 0.4 0.0 - 1.2 mg/dL [facility] AST 30 0 - 37 U/L [facility] ALT 32 0 - 40 U/L [facility] GLOBULIN 2.8 1 - 4.8 g/dL [facility] EGFR 100 >59 mL/min/1.7 3m2 [facility] Comment:Estimated glomerular filtration rate calculated using the CKD-EPI equation. ANION GAP 16 10 - 20 mmol/L [facility] Blood 02/22/2021 10:5 5 AM EST 02/22/2021 10:59 AM EST us Abraham Glynn MD LAB BLOOD ORDERABLES Final Resu lt Performing Organization Address [facility] Co de Phone Number [address] [address] * (ABNORMAL) Lipid panel (02/22/2021 10:55 AM EST) HDL 39 mg/dL [facility] Comment: Interpretation <40 mg/dL: Low HDL cholesterol (major risk factor for CHD) Greater than or equal to 60 mg/dL: High HDL cholesterol ( negative risk factor for CHD) HDL - cholesterol is affected by a number of factors, e.g. smoking, excerise, hormones, sex and age. CHOLESTEROL 211 0 - 240 mg/dL [facility] TRIGLYCERIDES 201(H) 30 - 160 mg/dL [facility] LDL 132(H) 50 - 129 mg/dL [facility] Comment: LDL levels in terms of risk for coronary heart disease: <100 mg/dL: Optimal 100-129 mg/dL: Near or above optimal 130-159 mg/dL: Borderline high 160-189 mg/dL: High >190 mg/dL: Very High CARDIAC RISK RATIO 5.4(H) 3.4 - 5.0 [facility] Blood 02/22/2021 10:5 5 AM EST 02/22/2021 10:59 AM EST us Abraham Glynn MD LAB BLOOD ORDERABLES Final Resu lt Performing Organization Address [facility]/ZIP Co de Phone Number [address] [address] from Last 3 Months or Most Recently Relevant to Health Maintenance Insurance [employer] CIGNA CARELINK PPO CIGNA CARELINK PPO CIGNA CARELINK PPO CIGNA [employer]ELINK PPO CIGNA CARELINK PPO CIGNA CARELINK PPO CIGNA [employer]EL[employer] PPO CIGNA CARELINK PPO Care Teams Bone Worker Relationship Specialty Start Date End Date Renard, Abraham Joel MD [address] [place] [address] & [address] [place] [address] [email or web address] PCP - General Internal Medicine 07/10/17 Additional Source Comments The information contained in this document represents components of the legal health record. It is not the complete legal health record.[facility]
--- OUTSIDE RECORDS SUMMARY | 2025-01-13 06:18 | XMS_ITS | Encounter Summary ---
Author Organization [facility] Address [address] [place] [address] Phone Care Team Providers Care Mobile Health Vehicle Operator Name Role Phone Abraham Glynn MD Primary Care Provider [phone] Encounter Details Date Type Department Care Team (Late st Contact Info) Description 10/25/2022 Procedure Pass [facility] Endoscopy Admitting Dept Virtual Department [address] [place] [address] Social History Tobacco Use Types Packs/Day Years [...] on filedocumented in this encounter Care Teams Mobile Health Vehicle Operator Relationship Specialty Start Date End Date Abraham Glynn MD [address] [place] [address] [address] [place] [address] [email or web address] PCP - General Internal Medicine 07/10/17 documented as of this encounter Additional Source Comments The information contained in this document represents components of the legal health record. It is not the complete legal health record.[facility]
--- OUTSIDE RECORDS SUMMARY | 2025-01-13 06:18 | XMS_ITS | Encounter Summary ---
Author Organization [facility] Address [address] [facility] [address] [place] [address] Phone Care Team Providers Care Occupational Medicine Officer Name Role Phone Abraham Glynn MD Primary Care Provider [phone] Encounter Details Date Type Department Care Team (Late st Contact Info) Description 07/10/2017 Ancillary Orders [facility], X-Ray - [address] [address] Renard, Abraham Joel MD [address] [place] [address] [address] [place] [address] [email or web address] Cough Social History Tobacco Use Types [...] documented as of this encounter Care Teams Occupational Medicine Officer Relationship Specialty Start Date End Date Abraham Glynn MD [address] [place] [address] [address] [place] [address] [email or web address] PCP - General Internal Medicine 07/10/17 documented as of this encounter Additional Source Comments The information contained in this document represents components of the legal health record. It is not the complete legal health record.[facility]
--- OUTSIDE RECORDS SUMMARY | 2025-01-13 06:18 | XMS_ITS | Encounter Summary ---
Author Organization [facility] Address [address] [place] [address] Phone Care Team Providers Care Tours Captain Name Role Phone Renard, Abraham Joel MD Primary Care Provider [phone] Encounter Details Date Type Department Care Team (Latest Contact Info) Description 10/29/2017 Transcribe Orders [facility] [address] [place] [address] Mikel Guidry MD Fever, unspecified fever cause [...] 5:12 PM EDT) C.DIFFICILE PCR Negative Negative [facility] C.DIFFICILE STRAIN PRESUMPTIVE NEGATIVE PRESUMPTIVE NEGATIVE [facility] Comment:Detection of 027/NAP 1/BI strains of C.difficile is presumptive and is solely for epidemiological purposes and is not intended to guide or monitor treatment of infections. Stool (Stool) 10/29/2017 5:1 2 PM EDT 10/29/2017 5:14 PM EDT us Mikel Guidry MD MICROBIOLOGY - GENERAL ORDERABL ES Final Result Performing Organization Address [facility]/ZIP Co de Phone Number [address] [address] * Giardia antigen screen (10/29/2017 5:12 PM EDT) ST GIARDIA ANTIGEN Negative Negative [facility] DPT OF LAB MED AND PAT+ Stool (Stool) 10/29/2017 5:1 2 PM EDT 10/29/2017 5:14 PM EDT Mikel Guidry MD MICROBIOLOGY - GENERAL ORDERABL ES Final Result Performing Organization Address [facility] Co de Phone Number [facility] DPT OF LAB MED AND PAT+ [address] [place] [address] * Stool culture (10/29/2017 5:12 PM EDT) Specimen Source/ Description STOOL FRESH STOOL STOOL [facility] Special Requests None [facility] Culture/Test NO SALMONELLA, SHIGELLA OR CAMPYLOBACTER ISOLATED [facility] Report Status 11/01/2017 FINAL [facility] Stool (Stool) 10/29/2017 5:1 2 PM EDT 10/29/2017 5:13 PM EDT Mikel Guidry MD MICROBIOLOGY - GENERAL ORDERABL ES Final Result Performing Organization Address [facility] Co de Phone Number [address] [address] * Malaria/babesia exam (10/29/2017 12:24 PM EDT) Specimen Source/ Description WHOLE BLOOD [facility] Special Requests None [facility] MALARIA SMEAR No Malaria or Babesia observed [facility] Report Status 10/29/2017 FINAL [facility] Other (Whole blood) 10/29/2017 12:24 PM EDT 10/29/2017 12:28 PM EDT Mikel Guidry MD NON CULTURE MICROBIOLOGY Final Result [facility] [address] [place] [address] * Babesia species PCR (10/29/2017 12:24 PM EDT) B.Microti PCR Negative Negative [facility] DPT OF LAB MED AND PAT+ B.Duncani PCR Negative Negative [facility] DPT OF LAB MED AND PAT+ B.Divergens/MO-1 PCR Negative Negative [facility] DPT OF LAB MED AND PAT+ Comment: (NOTE) ADDITIONAL INFORMATION This test was developed and its performance characteristics determined by [facility] in a manner consistent with CLIA requirements. This test has not been cleared or approved by the U.S. Food and Drug Administration. Blood 10/29/2017 12:2 4 PM EDT 10/29/2017 12:27 PM EDT us Mikel Guidry MD LAB BLOOD ORDERABLES Final Resu lt [facility] DPT OF LAB MED AND PAT+ [address] [place] [address] * Ehrlichia/anaplasma PCR (10/29/2017 12:24 PM EDT) ANAPLASMA PHAGOCYTO Negative Negative [facility] DPT OF LAB MED AND PAT+ EHRLICHIA CHAFFEENS Negative Negative [facility] DPT OF LAB MED AND PAT+ EHRL EWINGII/CANIS Negative Negative [facility]+ EHRL MURIS-LIKE Negative Negative [facility] DPT OF LAB MED AND PAT+ Comment: (NOTE) ADDITIONAL INFORMATION This test was developed and its performance characteristics determined by [facility] in a manner consistent with CLIA requirements. This test has not been cleared or approved by the U.S. Food and Drug Administration. Blood 10/29/2017 12:2 4 PM EDT 10/29/2017 12:27 PM EDT us Mikel Guidry MD LAB BLOOD ORDERABLES Final Resu lt [facility] DPT OF LAB MED AND PAT+ [address] [place] [address] * Lyme screen with reflex to Western blot, blood (10/29/2017 12:24 PM EDT) Lyme AB IgG Negative Negative [facility] Lyme AB IgM Negative Negative [facility] Blood 10/29/2017 12:2 4 PM EDT 10/29/2017 12:26 PM EDT Mikel Guidry MD LAB BLOOD ORDERABLES Final Resu lt Performing Organization Address [facility] Co de Phone Number [address] [address] * Blood culture, routine (10/29/2017 12:24 PM EDT) Specimen Source/ Description BLOOD BLOOD [facility] Special Requests None [facility] Culture/Test NO GROWTH 5 DAYS [facility] Report Status 11/03/2017 FINAL [facility] Blood (Blood) 10/29/2017 12: 24 PM EDT 10/29/2017 12:27 PM EDT Mikel Guidry MD MICROBIOLOGY - GENERAL ORDERABL ES Final Result Performing Organization Address [facility]/ZIP Co de Phone Number [address] [address] * Blood culture, routine (10/29/2017 12:24 PM EDT) Specimen Source/ Description BLOOD BLOOD [facility] Special Requests None [facility] Culture/Test NO GROWTH 5 DAYS [facility] Report Status 11/03/2017 FINAL [facility] Blood (Blood) 10/29/2017 12: 24 PM EDT 10/29/2017 12:26 PM EDT us Mikel Guidry MD MICROBIOLOGY - GENERAL ORDERABL ES Final Result Performing Organization Address [facility] Co de Phone Number [address] [address] * Sedimentation rate (ESR) (10/29/2017 12:24 PM EDT) ESR 11 0 - 20 mm/h [facility] Blood 10/29/2017 12:2 4 PM EDT 10/29/2017 12:26 PM EDT Mikel Guidry MD LAB BLOOD ORDERABLES Final Resu lt Performing Organization Address [facility] de Phone Number [address] [address] * (ABNORMAL) C-Reactive Protein (10/29/2017 12:24 PM EDT) C REACTIVE PROTEIN 22.8(H) 0.0 - 4.0 mg/L [facility] Comment:New Reference Range and Measuring Units effective 08/27/17. Blood 10/29/2017 12:2 4 PM EDT 10/29/2017 12:26 PM EDT Mikel Guidry MD LAB BLOOD ORDERABLES Final Resu lt Performing Organization Address [facility] Co de Phone Number [address] [address] * (ABNORMAL) CBC and differential (10/29/2017 12:24 PM EDT) WBC 5.73 3.40 - 11.20 K/uL [facility] RBC 5.18 4.50 - 5.50 M/uL [facility] HGB 15.3 13.0 - 17.0 g/dL [facility] HCT 44.1 40.0 - 51.0 % [facility] PLT 166 130 - 400 K/uL [facility] MCV 85.1 79.0 - 98.0 fL [facility] MCH 29.5 27.0 - 34.8 pg [facility] MCHC 34.7 31.5 - 36.0 g/dL [facility] RDW 13.0 10.8 - 14.6 % [facility] MPV 11.6 9.4 - 12.4 [facility] NRBC 0.00 /100 WBCs [facility] ABSOLUTE NRBC 0.00 K/uL [facility] DIFF METHOD Auto [facility] NEUTS 79.1(H) 45.30 - 77.70 % [facility] LYMPHS 11.3(L) 12.30 - 39.70 % [facility] MONOS 9.1 4.10 - 12.80 % [facility] EOS 0.0 0 - 7.2 % [facility] BASOS 0.3 0 - 2.80 % [facility] Granulocytes, immature (%) 0.2 0.0 - 0.9 % [facility] ABSOLUTE NEUTS 4.53 1.40 - 7.70 K/uL [facility] ABSOLUTE LYMPHS 0.65 0.60 - 3.20 K/uL [facility] ABSOLUTE MONOS 0.52 0.11 - 0.59 K/uL [facility] ABSOLUTE EOS 0.00(L) 0.01 - 0.50 K/uL [facility] ABSOLUTE BASOS 0.02 0.00 - 0.08 K/uL [facility] Granulocytes, immature 0.01 0.00 - 0.05 K/uL [facility] Blood 10/29/2017 12:2 4 PM EDT 10/29/2017 12:26 PM EDT us Mikel Guidry MD LAB BLOOD ORDERABLES Final Resu lt [facility] [address] [place] [address] * Comprehensive metabolic panel (10/29/2017 12:24 PM EDT) SODIUM 137 133 - 146 mmol/L [facility] POTASSIUM 4.0 3.3 - 5.1 mmol/L [facility] CHLORIDE 98 96 - 108 mmol/L [facility] CO2 26 21 - 35 mmol/L [facility] BUN 12 6 - 19 mg/dL [facility] CREATININE 1.00 0.5 - 1.5 mg/dL [facility] GLUCOSE 97 70 - 99 mg/dL [facility] ALBUMIN 4.0 3.9 - 4.8 g/dL [facility] TOTAL PROTEIN 7.3 6.5 - 8.0 g/dL [facility] CALCIUM 9.7 8.4 - 10.3 mg/dL [facility] ALKALINE PHOSPHATASE 61 39 - 117 U/L [facility] TOTAL BILIRUBIN 0.7 0.0 - 1.2 mg/dL [facility] AST 21 0 - 37 U/L [facility] ALT 16 0 - 40 U/L [facility] GLOBULIN 3.3 1 - 4.8 g/dL [facility] EGFR 86 >59 mL/min/1.7 3m2 [facility] Comment:If patient is black, multiply result by 1.159. Estimated glomerular filtration rate calculated using the CKD-EPI equation. ANION GAP 17 10 - 20 mmol/L [facility] Blood 10/29/2017 12:2 4 PM EDT 10/29/2017 12:26 PM EDT us Mikel Guidry MD LAB BLOOD ORDERABLES Final Resu lt Performing Organization Address City/State/[facility] Co de Phone Number [address] [address] documented in this encounter Visit Diagnoses Diagnosis [...] documented as of this encounter Care Teams Tours Captain Relationship Specialty Start Date End Date Renard, Abraham Joel MD [address] [place] [address] [address] [place], [place] [id number] [email or web address] PCP - General Internal Medicine 07/10/17 documented as of this encounter Additional Source Comments The information contained in this document represents components of the legal health record. It is not the complete legal health record.[facility]
--- OUTSIDE RECORDS SUMMARY | 2025-01-13 06:18 | XMS_ITS | Encounter Summary ---
Author Organization [facility] Address [address] [place] [phone] Phone Care Team Providers Care Fur Ironer Name Role Phone Abraham Glynn MD Primary Care Provider [phone] Encounter Details Date Type Department Care Team (Latest Contact Info) Description 04/30/2019 Transcribe Orders [facility] Specimen Processing [address] [place] [address] Abraham Glynn MD [address] [facility] [address] [place] [address] [email or web address] Palpitations (Primary Dx) Social History Tobacco [...] EST) MAGNESIUM 2.1 1.6 - 2.6 mg/dL [facility] Blood 04/30/2019 2:19 PM EST 04/30/2019 2:22 PM EST Abraham Glynn MD LAB BLOOD ORDERABLES Final Resu lt [facility] [address] [place] [address] * CBC and differential (04/30/2019 2:19 PM EST) WBC 4.10 3.40 - 11.20 K/uL [facility] RBC 5.12 4.50 - 5.50 M/uL [facility] HGB 15.1 13.0 - 17.0 g/dL [facility] HCT 43.7 40.0 - 51.0 % [facility] PLT 182 130 - 400 K/uL [facility] MCV 85.4 79.0 - 98.0 fL [facility] MCH 29.5 27.0 - 34.8 pg [facility] MCHC 34.6 31.5 - 36.0 g/dL [facility] RDW 13.1 10.8 - 14.6 % [facility] MPV 11.2 9.4 - 12.4 fl [facility] NRBC 0.00 0.00 /100 WBCs [facility] ABSOLUTE NRBC 0.00 0.00 K/uL [facility] DIFF METHOD Auto [facility] NEUTS 52.2 45.30 - 77.70 % [facility] LYMPHS 35.4 12.30 - 39.70 % [facility] MONOS 10.5 4.10 - 12.80 % [facility] EOS 0.7 0 - 7.2 % [facility] BASOS 0.7 0 - 2.80 % [facility] Granulocytes, immature (%) 0.5 0.0 - 0.9 % [facility] ABSOLUTE NEUTS 2.14 1.40 - 7.70 K/uL [facility] ABSOLUTE LYMPHS 1.45 0.60 - 3.20 K/uL [facility] ABSOLUTE MONOS 0.43 0.11 - 0.59 K/uL [facility] ABSOLUTE EOS 0.03 0.01 - 0.50 K/uL [facility] ABSOLUTE BASOS 0.03 0.00 - 0.08 K/uL [facility] Granulocytes, immature 0.02 0.00 - 0.05 K/uL [facility] Blood 04/30/2019 2:19 PM EST 04/30/2019 2:22 PM EST Abraham Glynn MD LAB BLOOD ORDERABLES Final Resu lt Performing Organization Address [facility] Co de Phone Number [address] [address] * TSH with reflex (04/30/2019 2:19 PM EST) TSH 1.48 0.27 - 4.20 uIU/mL [facility] Blood 04/30/2019 2:19 PM EST 04/30/2019 2:22 PM EST Abraham Glynn MD LAB BLOOD ORDERABLES Final Resu lt Performing Organization Address [facility] de Phone Number [address] [address] * (ABNORMAL) Basic metabolic panel (04/30/2019 2:19 PM EST) SODIUM 139 133 - 146 mmol/L [facility] CHLORIDE 100 96 - 108 mmol/L [facility] POTASSIUM 3.8 3.3 - 5.1 mmol/L [facility] CO2 27 21 - 35 mmol/L [facility] BUN 13 6 - 19 mg/dL [facility] CREATININE 0.90 0.5 - 1.5 mg/dL [facility] GLUCOSE 61(L) 70 - 99 mg/dL [facility] CALCIUM 9.7 8.4 - 10.3 mg/dL [facility] EGFR 96 >59 mL/min/1.7 3m2 [facility] Comment:If patient is black, multiply result by 1.159. Estimated glomerular filtration rate calculated using the CKD-EPI equation. ANION GAP 16 10 - 20 mmol/L [facility] Blood 04/30/2019 2:19 PM EST 04/30/2019 2:22 PM EST Abraham Glynn MD LAB BLOOD ORDERABLES Final Resu lt Performing Organization Address City/[facility]/ZIP Co de Phone Number [facility] [address] [place] [address] documented in this encounter Visit Diagnoses Diagnosis [...] documented as of this encounter Care Teams Fur Ironer Relationship Specialty Start Date End Date Abraham Glynn MD [address] [place] [address] [address] [place] [address] [email or web address] PCP - General Internal Medicine 07/10/17 documented as of this encounter Additional Source Comments The information contained in this document represents components of the legal health record. It is not the complete legal health record.[facility]
--- OUTSIDE RECORDS SUMMARY | 2025-01-13 06:18 | XMS_ITS | Encounter Summary ---
Author Organization [facility] Address [address] [place] [address] [place] [address] Phone Care Team Providers Care Power Marketer Name Role Phone Abraham Glynn MD Primary Care Provider [phone] Encounter Details Date Type Department Care Team (Latest Contact Info) Description 01/21/2019 Transcribe Orders [facility] [address] [place] [address] Renard, Abraham Joel MD [address] [place] [address] [address] [place] [address] [email or web address] Routine general medical examination at a [...] EDT) WBC 3.43 3.40 - 11.20 K/uL [facility] RBC 5.13 4.50 - 5.50 M/uL [facility] HGB 15.0 13.0 - 17.0 g/dL [facility] HCT 43.4 40.0 - 51.0 % [facility] PLT 204 130 - 400 K/uL [facility] MCV 84.6 79.0 - 98.0 fL [facility] MCH 29.2 27.0 - 34.8 pg [facility] MCHC 34.6 31.5 - 36.0 g/dL [facility] RDW 12.8 10.8 - 14.6 % [facility] MPV 11.3 9.4 - 12.4 fl [facility] NRBC 0.00 0.00 /100 WBCs [facility] ABSOLUTE NRBC 0.00 0.00 K/uL [facility] DIFF METHOD Auto [facility] NEUTS 43.6(L) 45.30 - 77.70 % [facility] LYMPHS 42.6(H) 12.30 - 39.70 % [facility] MONOS 11.1 4.10 - 12.80 % [facility] EOS 0.9 0 - 7.2 % [facility] BASOS 1.2 0 - 2.80 % [facility] Granulocytes, immature (%) 0.6 0.0 - 0.9 % [facility] ABSOLUTE NEUTS 1.50 1.40 - 7.70 K/uL [facility] ABSOLUTE LYMPHS 1.46 0.60 - 3.20 K/uL [facility] ABSOLUTE MONOS 0.38 0.11 - 0.59 K/uL [facility] ABSOLUTE EOS 0.03 0.01 - 0.50 K/uL [facility] ABSOLUTE BASOS 0.04 0.00 - 0.08 K/uL [facility] Granulocytes, immature 0.02 0.00 - 0.05 K/uL [facility] Blood 01/21/2019 7:40 AM EDT 01/21/2019 8:07 AM EDT us Abraham Glynn MD LAB BLOOD ORDERABLES Final Resu lt [facility] [address] [place] [address] * Basic metabolic panel (01/21/2019 7:40 AM EDT) SODIUM 140 133 - 146 mmol/L [facility] CHLORIDE 104 96 - 108 mmol/L [facility] POTASSIUM 4.6 3.3 - 5.1 mmol/L [facility] CO2 28 21 - 35 mmol/L [facility] BUN 17 6 - 19 mg/dL [facility] CREATININE 0.90 0.5 - 1.5 mg/dL [facility] GLUCOSE 94 70 - 99 mg/dL [facility] CALCIUM 9.7 8.4 - 10.3 mg/dL [facility] EGFR 96 >59 mL/min/1.7 3m2 [facility] Comment:If patient is black, multiply result by 1.159. Estimated glomerular filtration rate calculated using the CKD-EPI equation. ANION GAP 13 10 - 20 mmol/L [facility] Blood 01/21/2019 7:40 AM EDT 01/21/2019 8:07 AM EDT us Abraham Glynn MD LAB BLOOD ORDERABLES Final Resu lt Performing Organization Address City/State/[facility] Co de Phone Number [facility] [address] [place] [address] documented in this encounter Visit Diagnoses Diagnosis [...] documented as of this encounter Care Teams Power Marketer Relationship Specialty Start Date End Date Abraham Glynn MD [address] [place] [address] [address] [place] [address] [email or web address] PCP - General Internal Medicine 07/10/17 documented as of this encounter Additional Source Comments The information contained in this document represents components of the legal health record. It is not the complete legal health record.[facility]
--- OUTSIDE RECORDS SUMMARY | 2025-01-13 06:18 | XMS_ITS | Encounter Summary ---
Author Organization [facility] Address [address] [place] [address] [place] [address] Phone Care Team Providers Care Senior Oracle Applications Developer Name Role Phone RenardAbraham MD Primary Care Provider Encounter Details Date Type Department Care Team (Latest Contact Info) Description 08/28/2017 Transcribe Orders [facility] [address] [place] [id number] Renard, Abraham Joel MD [address] [place] [address] [address] [place] [id number] [email or web address] Heart valve replaced (Primary Dx) Social [...] EDT) PT 38.3(H) 10.2 - 12.9 sec [facility] INR 3.3(H) 0.9 - 1.1 [facility] Comment:Therapeutic range fo r oral Vitamin K antagonists: 2.0-3.5 Blood 08/28/2017 9:22 AM EDT 08/28/2017 9:41 AM EDT Abraham Glynn MD LAB BLOOD ORDERABLES Final Resu lt [address] [address] documented in this encounter Visit Diagnoses Diagnosis [...] documented as of this encounter Care Teams Senior Oracle Applications Developer Relationship Specialty Start Date End Date Abraham Glynn MD [address] [place] [address] & [address] [place] [id number] [email or web address] PCP - General Internal Medicine 07/10/17 documented as of this encounter Additional Source Comments The information contained in this document represents components of the legal health record. It is not the complete legal health record.[facility]
--- OUTSIDE RECORDS SUMMARY | 2025-01-13 06:18 | XMS_ITS | Encounter Summary ---
Author Organization [facility] Address [address] [facility] [address] [place] [address] Phone Care Team Providers Care Phone Manager Name Role Phone Unknown, Unknown Primary Care Provider Abraham Galvan MD Primary Care Provider [phone] Encounter Details Date Type Department Care Team (Latest Contact Info) Description 06/16/2017 Transcribe Orders [facility] [address] [place] [phone] Renard, Abraham Joel MD [address] [place] [address] [address] [place] [phone] [email or web address] Routine general medical examination at a [...] VALPROIC ACID <2.8(L) 50.0 - 100.0 ug/mL [facility] Blood 06/16/2017 8:16 AM EST 06/16/2017 8:50 AM EST Abraham Glynn MD LAB BLOOD ORDERABLES Final Resu lt Performing Organization Address City/[facility]/ZIP Co de Phone Number [address] [address] * PSA (screening) (06/16/2017 8:16 AM EST) PSA 0.89 0 - 4.00 ng/mL [facility] Blood 06/16/2017 8:16 AM EST 06/16/2017 8:51 AM EST Abraham Glynn MD LAB BLOOD ORDERABLES Final Resu lt Performing Organization Address [facility] de Phone Number [address] [address] * CBC and differential (06/16/2017 8:16 AM EST) WBC 3.50 3.40 - 11.20 K/uL [facility] RBC 5.13 4.50 - 5.50 M/uL [facility] HGB 15.2 13.0 - 17.0 g/dL [facility] HCT 44.2 40.0 - 51.0 % [facility] PLT 183 130 - 400 K/uL [facility] MCV 86.2 79.0 - 98.0 fL [facility] MCH 29.6 27.0 - 34.8 pg [facility] MCHC 34.4 31.5 - 36.0 g/dL [facility] RDW 13.2 10.8 - 14.6 % [facility] MPV 11.7 9.4 - 12.4 fl [facility] NRBC 0.00 /100 WBCs [facility] ABSOLUTE NRBC 0.00 K/uL [facility] DIFF METHOD Auto [facility] NEUTS 50.9 45.30 - 77.70 % [facility] LYMPHS 36.9 12.30 - 39.70 % [facility] MONOS 9.7 4.10 - 12.80 % [facility] EOS 1.1 0 - 7.2 % [facility] BASOS 1.4 0 - 2.80 % [facility] Granulocytes, immature (%) 0.0 0.0 - 0.9 % [facility] ABSOLUTE NEUTS 1.78 1.40 - 7.70 K/uL [facility] ABSOLUTE LYMPHS 1.29 0.60 - 3.20 K/uL [facility] ABSOLUTE MONOS 0.34 0.11 - 0.59 K/uL [facility] ABSOLUTE EOS 0.04 0.01 - 0.50 K/uL [facility] ABSOLUTE BASOS 0.05 0.00 - 0.08 K/uL [facility] Granulocytes, immature 0.00 0.00 - 0.05 K/uL [facility] Blood 06/16/2017 8:16 AM EST 06/16/2017 8:50 AM EST us Abraham Glynn MD LAB BLOOD ORDERABLES Final Resu lt Performing Organization Address [facility] Co de Phone Number [address] [address] * TSH with reflex (06/16/2017 8:16 AM EST) TSH 2.80 0.27 - 4.20 uIU/mL [facility] Blood 06/16/2017 8:16 AM EST 06/16/2017 8:50 AM EST us Abraham Glynn MD LAB BLOOD ORDERABLES Final Resu lt Performing Organization Address [facility] Co de Phone Number [address] [address] * (ABNORMAL) Lipid panel (06/16/2017 8:16 AM EST) HDL 40 mg/dL [facility] Comment: Interpretation: Risk Level Males Decreased >45 mg/dL Average 40-45 mg/dL Increased <40 mg/dL CHOLESTEROL 209 0 - 240 mg/dL [facility] TRIGLYCERIDES 157 30 - 160 mg/dL [facility] LDL 138(H) 50 - 129 mg/dL [facility] Comment: LDL levels in terms of risk for coronary heart disease: <100 mg/dL: Optimal 100-129 mg/dL: Near or above optimal 130-159 mg/dL: Borderline high 160-189 mg/dL: High >190 mg/dL: Very High CARDIAC RISK RATIO 5.2(H) 3.4 - 5.0 C [facility] Blood 06/16/2017 8:16 AM EST 06/16/2017 8:50 AM EST Abraham Glynn MD LAB BLOOD ORDERABLES Final Resu lt [facility] [address] [place] [address] * Comprehensive metabolic panel (06/16/2017 8:16 AM EST) SODIUM 142 133 - 146 mmol/L [facility] POTASSIUM 4.3 3.3 - 5.1 mmol/L [facility] CHLORIDE 102 96 - 108 mmol/L [facility] CO2 27 21 - 35 mmol/L [facility] BUN 17 6 - 19 mg/dL [facility] CREATININE 0.90 0.5 - 1.5 mg/dL [facility] GLUCOSE 90 70 - 99 mg/dL [facility] ALBUMIN 4.2 3.9 - 4.8 g/dL [facility] TOTAL PROTEIN 7.4 6.5 - 8.0 g/dL [facility] CALCIUM 9.4 8.4 - 10.3 mg/dL [facility] ALKALINE PHOSPHATASE 58 39 - 117 U/L [facility] TOTAL BILIRUBIN 0.9 0.0 - 1.2 mg/dL [facility] AST 30 0 - 37 U/L [facility] ALT 31 0 - 40 U/L [facility] GLOBULIN 3.2 1 - 4.8 g/dL [facility] EGFR >60 >60 mL/min/1.7 3m2 [facility] Comment:Abnormal if <60. If patient is -Brazilian, multiply the result by 1.21. ANION GAP 17 10 - 20 mmol/L [facility] Blood 06/16/2017 8:16 AM EST 06/16/2017 8:50 AM EST us Abraham Glynn MD LAB BLOOD ORDERABLES Final Resu lt [facility] [address] [place] [address] documented in this encounter Visit Diagnoses Diagnosis [...] documented as of this encounter Care Teams Phone Manager Relationship Specialty Start Date End Date Unknown, Unknown, MD PCP - General 03/05/17 07/09/17 Renard, Abraham Joel MD [address] [place] [address] [address] [place] [address] [email or web address] PCP - General Internal Medicine 07/10/17 documented as of this encounter Additional Source Comments The information contained in this document represents components of the legal health record. It is not the complete legal health record.[facility]
--- OUTSIDE RECORDS SUMMARY | 2025-01-13 06:18 | XMS_ITS | Encounter Summary ---
Author Organization [facility] Address [address] [place] [address] Phone Care Team Providers Care Aggregate Conveyor Operator Name Role Phone Renard, Abraham Joel MD Primary Care Provider [phone] Encounter Details Date Type Department Care Team (Late st Contact Info) Description 03/11/2020 Procedure Pass [facility], Ct Scan - [facility] [address] [place] [address] Social History Tobacco Use Types Packs/Day Years [...] 03/11/2020 7:00 PM Juan Waterman RN * Ellis Suicide Severity Rating Scale (Screener/Recent Self-Report) Question [...] documented as of this encounter Care Teams Aggregate Conveyor Operator Relationship Specialty Start Date End Date RenardAbraham bauer MD [address] [place] [address] [address] [place] [address] [email or web address] PCP - General Internal Medicine 07/10/17 documented as of this encounter Additional Source Comments The information contained in this document represents components of the legal health record. It is not the complete legal health record.[facility]
--- OUTSIDE RECORDS SUMMARY | 2025-01-13 06:18 | XMS_ITS | Encounter Summary ---
Author Organization [facility] Address [address] [facility] [address] [place] [address] Phone Care Team Providers Care Silviculture Teacher Name Role Phone Unknown, Unknown Primary Care Provider Abraham Galvan MD Primary Care Provider [phone] Encounter Details Date Type Department Care Team (Latest Contact Info) Description 03/05/2017 Transcribe Orders [facility] [address] [place] [address] Renard, Abraham Joel MD [address] [place] [address] [address] [place] [phone] [email or web address] Heart valve replaced (Primary Dx) Social [...] EST) PT 34.3(H) 10.2 - 12.9 sec [facility] INR 3.0(H) 0.9 - 1.1 [facility] Comment:Therapeutic range fo r oral Vitamin K antagonists: 2.0-3.5 Blood 03/05/2017 10:3 1 AM EST 03/05/2017 10:36 AM EST Abraham Glynn MD LAB BLOOD ORDERABLES Final Resu lt [facility] [address] [place] [address] documented in this encounter Visit Diagnoses Diagnosis [...] documented as of this encounter Care Teams Silviculture Teacher Relationship Specialty Start Date End Date Unknown, Unknown, MD PCP - General 03/05/17 07/09/17 Renard, Abraham Joel MD [address] [facility] [address] [place] [address] [email or web address] PCP - General Internal Medicine 07/10/17 documented as of this encounter Additional Source Comments The information contained in this document represents components of the legal health record. It is not the complete legal health record.[facility]
[2025-01-13 06:29] LABS: MANUAL DIFF FLAG NO
[2025-01-13 07:24] LABS: Hematocrit 41.7 % (42.0-52.0); Hemoglobin 14.5 g/dl (14.0-18.0); Imm Gran Abs Auto 0.01 X10*3/uL (0.00-0.03); Imm Gran Pct Auto 0.3 % (0.0-0.4); Lymphocytes Absolute Auto 1.1 X10*3/uL (1.2-4.9); Mean Corpuscular HGB Conc 34.8 g/dl (31.0-36.0); Mean Corpuscular Hemoglobin 29.2 pg (27.0-33.0); Mean Corpuscular Volume 83.9 fL (80.0-98.0); NRBC Abs Auto 0.000 X10*3/uL (0.0-0.012); NRBC Pct Auto 0.0 /100WBC (0.0-0.2); Platelet Count 172 X10*3/uL (160-400); Red Blood Count 4.97 X10*6/uL (4.60-5.80); White Blood Count 3.5 X10*3/uL (4.8-10.8)
[2025-01-13 07:59] LABS: Alanine Aminotransferase 22 U/L (0-40); Albumin Level 4.4 g/dL (3.5-5.0); Alkaline Phosphatase 67 U/L (39-117); Anion Gap 10 (12-20); Aspartate Amino Transferase 29 U/L (5-37); Blood Urea Nitrogen 17 mg/dL (9-16); Calcium 9.3 mg/dL (8.4-10.2); Carbon Dioxide 28 mmol/L (22-29); Chloride 106 mmol/L (96-108); Cholesterol 215 mg/dL (<200); Estimated Glomerular Filt Rate > 60; HDL Cholesterol 40 mg/dL (>40); Potassium 4.1 mmol/L (3.3-5.1); Sodium 140 mmol/L (135-145); Total Protein 7.0 g/dL (6.5-8.0); Triglycerides 82 mg/dL (<150)
== END 2025-01-13 06:16 | disposition home or self-care (01) ==
LOC: HO.LAB 06:15
PROVIDERS: PCP Internal Medicine; Visit Provider Internal Medicine
DX: D64.9 Anemia, unspecified (principal); E78.00 Pure hypercholesterolemia, unspecified
CPT/HCPCS: 36415; 80053; 80061; 85025

== ENCOUNTER 2025-01-19 13:37 | Outpatient (AMB) | payer BC, SELFPAY ==
[2025-01-19 13:41] VITALS: BP 126/80; PULSE 76; O2SAT 96; BMI 23.6
--- NOTE | 2025-01-19 13:41 | A.OFFPC_ITS ---
Vital Signs 01/19/25 13:41 Height 5 ft 9 in Weight 160 lb 2 oz BMI 23.6 BP 126/80 Blood Pressure Location Lt brachial Position Sitting Pulse 76 Pulse Source Pulse Oximeter Pulse Oximetry (%) 96 Oxygen Delivery Method Room Air Intake Visit Reasons: hyperlipidemia Public Service Administrator Required: No Accompanied by: Self / Same As Patient Allergies No Known Drug Allergies Allergy (Unknown, Verified 01/19/25 13:53) Unknown Medication List - Last Reconciled 01/19/25 by Feliberto Garcia MD amoxicillin 2,000 mg PO ONCE ckdncwmbvb-mjiswlzshncfg-uhkh 50-325-40 mg 1 cap PO Q6H PRN cholecalciferol (vitamin D3) 50 mcg PO DAILY metoprolol succinate ER 50 mg PO DAILY metronidazole 0.75% appl topical BID sumatriptan succinate 50 mg PO Q2-4H PRN valsartan 40 mg PO DAILY warfarin 5 mg See Protocol PO DAILY Tobacco use date assessed: 01/19/25 Dental Screening Dental Screen Date: 01/19/25 Did you have a dental visit in the last 12 months?: Yes Did you have a dental problem in the last 6 months where you did not have access to dental care?: No Was dental information given to patient?: Patient has dentist HPI hyperlipidemia HPI Details Patient comes in today for his follow up visit States that he feels okay He denies any headaches or dizziness Denies any chest pains, no SOB No nausea/vomiting, no abdominal pain No change in bowel habits noted He had his follow up labs done last week - to discuss his results [facility] Medical History Pure hypercholesterolemia History of scarlet fever Cardiomyopathy Vitamin D deficiency Migraine Surgical History History of colonoscopy Hx of prosthetic aortic valve replacement (~01/10/98) Family History Mother No problems noted. Father No problems noted. 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 Depression Screening Interpretation: Negative Depression Screening Done: Yes Source: Developed by Drs. Christoph Cohn, Ashlyn Higgins, Jeremy Hernandez and colleagues, with an educational gail from [employer] [address]. Thrive Questionnaire Date Thrive assessed: 07/14/24 I am a: Patient What is your living situation today?: I have a steady place to live Within the past 12 months, did the food you bought not last and you didn't have the money to get more?: Never true Within the past 12 months, did you worry whether your food would run out before you got money to buy more?: Never true Do you have trouble paying for medicines?: No Do you have trouble getting transportation to medical appointments?: No Do you have trouble paying your heating and electricity bill?: No Do you have trouble taking care of your child, family member or friend?: No Do you have trouble with day-to-day activities such as bathing, preparing meals, shopping, managing finances, etc.?: No Are you currently unemployed and looking for a job?: No Are you interested in more education?: No Please select the resources that you would like help with: None Currently or been in a relationship where the following occur: No concerns reported THRIVE Score: 0 AUDIT C Alcohol Use Questionnaire (AUDIT-C) 1. How often do you have a drink containing alcohol?: Never 3. How often do you have six or more drinks on one occasion?: Never Total Score: 0 Score Reviewed/Action Taken: Yes THADDEUS-7 AMB Questionnaire THADDEUS-7 Date THADDEUS - 7 assessed: 07/19/24 Source: Developed by Drs. Christoph Cohn, Ashlyn Higgins, Jeremy Hernandez and colleagues, with an educational gail from [address]. Review of Systems Const Denies chills, Denies fatigue, Denies fever(s) and Denies headache(s) ENT Denies dysphagia, Denies dizziness, Denies otalgia, Denies headache(s), Denies neck pain, Denies odynophagia and Denies sore throat Card Denies chest pain, Denies irregular heart rhythm, Denies palpitations and Denies dyspnea Resp Denies chest congestion, Denies cough and Denies dyspnea GI Denies abdominal pain, Denies constipation, Denies dysphagia, Denies heartburn, Denies diarrhea, Denies nausea, Denies odynophagia and Denies vomiting Denies difficulty urinating, Denies dysuria and Denies urinary frequency Musc Denies back pain, Denies arthralgias and Denies neck pain Skin/Breast Denies rash Neuro Denies dizziness, Denies headache(s) and Denies paresthesias Endo Denies fatigue and Denies palpitations Physical exam (Primary Care) Vital Signs: Last Vital Signs Pulse 76 01/19/25 13:41 BP 126/80 01/19/25 13:41 Pulse Ox 96 01/19/25 13:41 Oxygen Delivery Method Room Air 01/19/25 13:41 BMI result Body Mass Index 23.6 Tobacco/Smoking Status: Tobacco use Status Tobacco use date assessed 01/19/25 01/19/25 13:47 Patient Tobacco Use Status Never used Tobacco 01/19/25 13:47 e-Cigarette/Vaping Use Never Used 01/19/25 13:47 Depression Screening Interpretation: Negative Thrive Assessment: Date of Thrive Assessment Date Thrive assessed 07/14/24 01/19/25 13:47 Currently or been in a relationship where the following occur: No concerns reported Const General: no acute distress and alert HENMT Ears: TM's normal bilaterally and EAC's normal Throat: Yes posterior oropharynx normal and Yes tonsils normal (no TP congestion) Neck Neck: Yes no lymphadenopathy and Yes supple Thyroid: Thyroid normal Resp Auscultation: clear to auscultation bilaterally, no rales and no wheezes Cardio Rate: regular rate Rhythm: regular rhythm Heart sounds: Clicking heart sound present ((+) metallic click over the 2nd heart sound) and no murmurs GI Palpation (GI): Soft to palpation and nontender Auscultation: normal bowel sounds General: Yes no CVA tenderness Back/Spine/Pelvis Back: no CVA tenderness Thoracic/Lumbar Spine: No lumbar spinal tenderness Skin Rashes: no rashes Extrem General: Yes no clubbing, cyanosis or edema Results Reviewed Results Reviewed: Laboratory Tests 01/13/25 06:28 WBC 3.5 L Hgb 14.5 Hct 41.7 L Plt Count 172 Sodium 140 Potassium 4.1 Creatinine 0.99 Estimated GFR > 60 Fasting Glucose 99 AST 29 ALT 22 Triglycerides 82 Cholesterol 215 H LDL Cholesterol, Calc 159 H HDL Cholesterol 40 L Coding Level of Care Code Est Pt Level 4 (51923) Diagnoses Cardiomyopathy, unspecified type I42.9 Cardiomyopathy type: unspecified Hx of prosthetic aortic valve replacement Z95.2 Pure hypercholesterolemia E78.00 Migraine without status migrainosus, not intractable, unspecified migraine type G43.909 Migraine type: unspecified Status migrainosus presence: without status migrainosus Intractability: not intractable Vitamin D deficiency E55.9 Assessment & Plan Assessment & Plan (1) Cardiomyopathy: Comment: sees cardiology (Dr. Muñoz) Code(s): I42.9 - Cardiomyopathy, unspecified Category: Medical Qualifiers: Cardiomyopathy type: unspecified Qualified Code(s): I42.9 - Cardiomyopathy, unspecified Plan: Patient remains asymptomatic from a cardiac standpoint Continue Valsartan 40 mg QD and Metoprolol ER 50 mg QD Follow up with cardiology (Dr. Candelario Muñoz) as scheduled (2) Hx of prosthetic aortic valve replacement: Onset Date: ~01/10/[address]: [facility] valve - Dr. Grant - 1997 Code(s): Z95.2 - Presence of prosthetic heart valve Category: Surgical Plan: Continue Coumadin 5 mg QD for lifelong anticoagulation - patient follow up with the coumadin clinic as scheduled for routine PT/INR monitoring He will need endocarditis prophylaxis with Abx prior to any invasive procedures (3) Pure hypercholesterolemia: Code(s): E78.00 - Pure hypercholesterolemia, unspecified Category: Medical Plan: Results of his labs done last week reviewed and discussed with patient - he is advised that his cholesterol numbers are still high (total cholesterol is at 204 mg/dl and LDL cholesterol at 149 mg/dl) and have increased slightly from previous He still prefers to avoid taking any cholesterol-lowering medications if possible - have advised him that he really should consider taking Rx but I will defer this to his credit professional as he is following up with cardiology regularly Reinforced low cholesterol diet Will have patient recheck his labs and fasting lipids in 6 months for follow up (4) Migraine: Comment: sees neurology (Dr. Joe Carranza) Code(s): G43.909 - Migraine, unspecified, not intractable, without status migrainosus Category: Medical Qualifiers: Migraine type: unspecified Status migrainosus presence: without status migrainosus Intractability: not intractable Qualified Code(s): G43.909 - Migraine, unspecified, not intractable, without status migrainosus Plan: Stable Continue Fioricet 50-325-40 mg PRN and Sumatriptan 50 mg PRN as instructed - his insurance no longer covers Fioricet but patient states that he rarely takes this anyway and can get by without it or can substitute for this when needed by taking some Tylenol and caffeine-containing products Reinforced again avoidance of any potential migraine triggers as much as possible Follow up with neurology (Dr. Joe Carranza) as scheduled (5) Vitamin D deficiency: Code(s): E55.9 - Vitamin D deficiency, unspecified Category: Medical Plan: Continue Vitamin D3 2000 units QD Plan To return in 6 months for his next annual physical examination Orders: Orders Comprehensive [place]. Panel Fast 6 Months E78.00 - Pure hypercholesterolemia, unspecified, Z00.00 - Encounter for general adult medical examination without a bnormal findings TSH reflex Free T4 6 Months E78.00 - Pure hypercholesterolemia, unspecified, Z00.00 - Encounter for general adult medical examination without abnormal findi ngs Vitamin D 25-OH Total 6 Months E55.9 - Vitamin D deficiency, unspecified, Z00.00 - Encounter for general adult medical examination without abnormal findings Prostate Specific Antigen 6 Months N40.0 - Benign prostatic hyperplasia without lower urinary tract symptoms, Z00.00 - Encounter for general adult medical examination without abnormal findings Complete Blood Count Auto Diff 6 Months D64.9 - Anemia, unspecified, Z00.00 - Encounter for general adult medical examination without abnormal findings Lipid Panel 6 Months E78.00 - Pure hypercholesterolemia, unspecified, Z00.00 - Encounter for general adult medical examination without abnormal findings UA CC w/rflx Micro + Cult 6 Months R30.0 - Dysuria, Z00.00 - Encounter for general adult medical examination without abnormal findings Vitamin B12 and Folate 6 Months E53.8 - Deficiency of other specified B group vitamins, Z00.00 - Encounter for general adult medical examination without abnormal findings
== END 2025-01-19 14:13 | disposition home or self-care (01) ==
PROVIDERS: PCP Internal Medicine; Visit Provider Internal Medicine
DX: I42.9 Cardiomyopathy, unspecified (principal); Z95.2 Presence of prosthetic heart valve; E78.00 Pure hypercholesterolemia, unspecified; G43.909 Migraine, unspecified, not intractable, without status migrainosus; E55.9 Vitamin D deficiency, unspecified

== ENCOUNTER → 2025-01-19 13:37 | Outpatient (BNVA) | payer BC, SELFPAY | PROVIDERS: PCP Internal Medicine; Visit Provider Internal Medicine | DX: R30.0 Dysuria (principal); I42.9 Cardiomyopathy, unspecified; E78.00 Pure hypercholesterolemia, unspecified; E55.9 Vitamin D deficiency, unspecified; G43.909 Migraine, unspecified, not intractable, without status migrainosus; E53.8 Deficiency of other specified B group vitamins; Z51.81 Encounter for therapeutic drug level monitoring; Z95.2 Presence of prosthetic heart valve; Z79.01 Long term (current) use of anticoagulants | CPT/HCPCS: 85610; 99211 ==

== ENCOUNTER 2025-01-19 14:17 | Outpatient (AMB) | payer BC, SELFPAY ==
[2025-01-19 14:31] LABS: Prothrombin Time Whole Bld POC 37.6 sec (11.1-13.5); ~PT, ~INR - Anti Coag Clinic 3.1 (0.9-1.1)
--- NOTE | 2025-01-19 15:04 | MHC.OFFVISCO ---
Intake Intake Visit Reasons: Anticoagulation Allergies No Known Drug Allergies Allergy (Unknown, Verified 01/19/25 14:23) Unknown Medication List - Last Reconciled 01/19/25 by Lyndsay Jackman RN amoxicillin 2,000 mg PO ONCE fqpqwjbyqg-iqtobuduvvsok-pytb 50-325-40 mg 1 cap PO Q6H PRN cholecalciferol (vitamin D3) 50 mcg PO DAILY metoprolol succinate ER 50 mg PO DAILY metronidazole 0.75% appl topical BID sumatriptan succinate 50 mg PO Q2-4H PRN valsartan 40 mg PO DAILY warfarin 5 mg See Protocol PO DAILY Nursing Note no cp,sob,diet/med changes,falls or sx of bleeding. CONTINUE PRESENT DOSE AND FOLLOW-UP IN 4 WEEKS GOOD UNDERSTANDING OF DOSING INSTR. 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
== END 2025-01-19 15:06 | disposition home or self-care (01) ==
LOC: HO.ACS 14:17
PROVIDERS: PCP Internal Medicine; Visit Provider Internal Medicine Medical Oncology
DX: Z79.01 Long term (current) use of anticoagulants (principal)

== ENCOUNTER 2025-02-11 10:02 | Outpatient (AMB) | payer BC, SELFPAY ==
--- NOTE | 2025-02-11 10:18 | MHC.OFFVISCO ---
Intake Intake Visit Reasons: Anticoagulation Allergies No Known Drug Allergies Allergy (Unknown, Verified 02/11/25 10:02) Unknown Medication List - Last Reconciled 02/11/25 by Yenny Cardenas RN amoxicillin 2,000 mg PO ONCE amoxicillin 2,000 mg PO ONCE hoegutzwwo-zkxxmazpujaqs-yxld 50-325-40 mg 1 cap PO Q6H PRN cholecalciferol (vitamin D3) 50 mcg PO DAILY metoprolol succinate ER 50 mg PO DAILY metronidazole 0.75% appl topical BID sumatriptan succinate 50 mg PO Q2-4H PRN valsartan 40 mg PO DAILY warfarin 5 mg See Protocol PO DAILY Nursing Note INR: 2.8 in therapeutic range Medications and supplements reviewed No changes in health, diet, medications, or supplements, Denies any signs and symptoms of bleeding or bruising or clotting. Bleeding, bruising, clotting discussed Nutritional guidance given Dose: 2.5mg x 1 day/ 5mg x 6 days F/U INR: 1 month Patient verbalizes understanding of instructions given Anti-Coag Initial Assessment Social Hx Patient Tobacco Use Status: Never used Tobacco alcohol intake: current Alcohol intake frequency: does not drink Cardiovascular Hx: Cardiomyopathy (mild per pt) and Other (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 Illness/Depression: No Coding Level of Care Code Est Patient Level 1 Diagnoses Current use of anticoagulant therapy Z79.01 Results AMB INR Fingerstick AMB INR Fingerstick 2.8 Last Edit by Yenny Cardenas RN on 02/11/25 10:14 manual entry Assessment & Plan Assessment & Plan (1) Current use of anticoagulant therapy: Code(s): Z79.01 - custodial (current) use of anticoagulants Category: Medical
[2025-02-11 10:31] LABS: Prothrombin Time Whole Bld POC 33.6 sec (11.1-13.5); ~PT, ~INR - Anti Coag Clinic 2.8 (0.9-1.1)
--- OUTSIDE RECORDS SUMMARY | 2025-02-11 11:16 | XMS_ITS | Encounter Summary ---
Author Organization [facility] Address [address] [place] [address] Phone Care Team Providers Care Restaurant Maintenance Technician Name Role Phone Renard, Abraham Joel MD Primary Care Provider [phone] Encounter Details Date Type Department Care Team (Latest Contact Info) Description 10/29/2017 Transcribe Orders [facility] [address] [place] [address] Mikel Guidry MD Fever, unspecified fever cause [...] 5:12 PM EDT) C.DIFFICILE PCR Negative Negative [facility] C.DIFFICILE STRAIN PRESUMPTIVE NEGATIVE PRESUMPTIVE NEGATIVE [facility] Comment:Detection of 027/NAP 1/BI strains of C.difficile is presumptive and is solely for epidemiological purposes and is not intended to guide or monitor treatment of infections. Stool (Stool) 10/29/2017 5:1 2 PM EDT 10/29/2017 5:14 PM EDT us Mikel Guidry MD MICROBIOLOGY - GENERAL ORDERABL ES Final Result Performing Organization Address [facility]/ZIP Co de Phone Number [address] [address] * Giardia antigen screen (10/29/2017 5:12 PM EDT) ST GIARDIA ANTIGEN Negative Negative [facility] DPT OF LAB MED AND PAT+ Stool (Stool) 10/29/2017 5:1 2 PM EDT 10/29/2017 5:14 PM EDT Mikel Guidry MD MICROBIOLOGY - GENERAL ORDERABL ES Final Result Performing Organization Address [facility] Co de Phone Number [facility] DPT OF LAB MED AND PAT+ [address] [place] [address] * Stool culture (10/29/2017 5:12 PM EDT) Specimen Source/ Description STOOL FRESH STOOL STOOL [facility] Special Requests None [facility] Culture/Test NO SALMONELLA, SHIGELLA OR CAMPYLOBACTER ISOLATED [facility] Report Status 11/01/2017 FINAL [facility] Stool (Stool) 10/29/2017 5:1 2 PM EDT 10/29/2017 5:13 PM EDT Mikel Guidry MD MICROBIOLOGY - GENERAL ORDERABL ES Final Result Performing Organization Address [facility] Co de Phone Number [address] [address] * Malaria/babesia exam (10/29/2017 12:24 PM EDT) Specimen Source/ Description WHOLE BLOOD [facility] Special Requests None [facility] MALARIA SMEAR No Malaria or Babesia observed [facility] Report Status 10/29/2017 FINAL [facility] Other (Whole blood) 10/29/2017 12:24 PM EDT 10/29/2017 12:28 PM EDT Mikel Guidry MD NON CULTURE MICROBIOLOGY Final Result [facility] [address] [place] [address] * Babesia species PCR (10/29/2017 12:24 PM EDT) B.Microti PCR Negative Negative [facility] LAB MED AND PAT+ B.Duncani PCR Negative Negative [facility] MED [facility] PAT+ B.Divergens/MO-1 PCR Negative Negative [facility] OF LAB MED AND PAT+ Comment: (NOTE) ADDITIONAL INFORMATION This test was developed and its performance characteristics determined by [facility] in a manner consistent with CLIA requirements. This test has not been cleared or approved by the U.S. Food and Drug Administration. Blood 10/29/2017 12:2 4 PM EDT 10/29/2017 12:27 PM EDT us Mikel Guidry MD LAB BLOOD ORDERABLES Final Resu lt [facility] DPT OF LAB MED AND PAT+ [address] [place] [address] * Ehrlichia/anaplasma PCR (10/29/2017 12:24 PM EDT) ANAPLASMA PHAGOCYTO Negative Negative [facility] DPT OF LAB MED AND PAT+ EHRLICHIA CHAFFEENS Negative Negative [facility] DPT OF LAB MED AND PAT+ EHRL EWINGII/CANIS Negative Negative [facility] DPT OF LAB MED AND PAT+ EHRL MURIS-LIKE Negative Negative [facility] DPT OF LAB MED AND PAT+ Comment: (NOTE) ADDITIONAL INFORMATION This test was developed and its performance characteristics determined by [facility] in a manner consistent with CLIA requirements. This test has not been cleared or approved by the U.S. Food and Drug Administration. Blood 10/29/2017 12:2 4 PM EDT 10/29/2017 12:27 PM EDT us Mikel Guidry MD LAB BLOOD ORDERABLES Final Resu lt [facility] D[facility] OF LAB MED AND PAT+ [address] [place] [address] * Lyme screen with reflex to Western blot, blood (10/29/2017 12:24 PM EDT) Lyme AB IgG Negative Negative [facility] Lyme AB IgM Negative Negative [facility] Blood 10/29/2017 12:2 4 PM EDT 10/29/2017 12:26 PM EDT Mikel Guidry MD LAB BLOOD ORDERABLES Final Resu lt Performing Organization Address [facility] Co de Phone Number [address] [address] * Blood culture, routine (10/29/2017 12:24 PM EDT) Specimen Source/ Description BLOOD BLOOD [facility] Special Requests None [facility] Culture/Test NO GROWTH 5 DAYS [facility] Report Status 11/03/2017 FINAL [facility] Blood (Blood) 10/29/2017 12: 24 PM EDT 10/29/2017 12:27 PM EDT Mikel Guidry MD MICROBIOLOGY - GENERAL ORDERABL ES Final Result Performing Organization Address [facility]/ZIP Co de Phone Number [address] [address] * Blood culture, routine (10/29/2017 12:24 PM EDT) Specimen Source/ Description BLOOD BLOOD [facility] Special Requests None [facility] Culture/Test NO GROWTH 5 DAYS [facility] Report Status 11/03/2017 FINAL [facility] Blood (Blood) 10/29/2017 12: 24 PM EDT 10/29/2017 12:26 PM EDT us Mikel Guidry MD MICROBIOLOGY - GENERAL ORDERABL ES Final Result Performing Organization Address [facility] Co de Phone Number [address] [address] * Sedimentation rate (ESR) (10/29/2017 12:24 PM EDT) ESR 11 0 - 20 mm/h [facility] Blood 10/29/2017 12:2 4 PM EDT 10/29/2017 12:26 PM EDT Mikel Guidry MD LAB BLOOD ORDERABLES Final Resu lt Performing Organization Address [facility] de Phone Number [address] [address] * (ABNORMAL) C-Reactive Protein (10/29/2017 12:24 PM EDT) C REACTIVE PROTEIN 22.8(H) 0.0 - 4.0 mg/L [facility] Comment:New Reference Range and Measuring Units effective 08/27/17. Blood 10/29/2017 12:2 4 PM EDT 10/29/2017 12:26 PM EDT Mikel Guidry MD LAB BLOOD ORDERABLES Final Resu lt Performing Organization Address [facility] Co de Phone Number [address] [address] * (ABNORMAL) CBC and differential (10/29/2017 12:24 PM EDT) WBC 5.73 3.40 - 11.20 K/uL [facility] RBC 5.18 4.50 - 5.50 M/uL [facility] HGB 15.3 13.0 - 17.0 g/dL [facility] HCT 44.1 40.0 - 51.0 % [facility] PLT 166 130 - 400 K/uL [facility] MCV 85.1 79.0 - 98.0 fL [facility] MCH 29.5 27.0 - 34.8 pg [facility] MCHC 34.7 31.5 - 36.0 g/dL [facility] RDW 13.0 10.8 - 14.6 % [facility] MPV 11.6 9.4 - 12.4 [facility] NRBC 0.00 /100 WBCs [facility] ABSOLUTE NRBC 0.00 K/uL [facility] DIFF METHOD Auto [facility] NEUTS 79.1(H) 45.30 - 77.70 % [facility] LYMPHS 11.3(L) 12.30 - 39.70 % [facility] MONOS 9.1 4.10 - 12.80 % [facility] EOS 0.0 0 - 7.2 % [facility] BASOS 0.3 0 - 2.80 % [facility] Granulocytes, immature (%) 0.2 0.0 - 0.9 % [facility] ABSOLUTE NEUTS 4.53 1.40 - 7.70 K/uL [facility] ABSOLUTE LYMPHS 0.65 0.60 - 3.20 K/uL [facility] ABSOLUTE MONOS 0.52 0.11 - 0.59 K/uL [facility] ABSOLUTE EOS 0.00(L) 0.01 - 0.50 K/uL [facility] ABSOLUTE BASOS 0.02 0.00 - 0.08 K/uL [facility] Granulocytes, immature 0.01 0.00 - 0.05 K/uL [facility] Blood 10/29/2017 12:2 4 PM EDT 10/29/2017 12:26 PM EDT us Mikel Guidry MD LAB BLOOD ORDERABLES Final Resu lt [facility] [address] [place] [address] * Comprehensive metabolic panel (10/29/2017 12:24 PM EDT) SODIUM 137 133 - 146 mmol/L [facility] POTASSIUM 4.0 3.3 - 5.1 mmol/L [facility] CHLORIDE 98 96 - 108 mmol/L [facility] CO2 26 21 - 35 mmol/L [facility] BUN 12 6 - 19 mg/dL [facility] CREATININE 1.00 0.5 - 1.5 mg/dL [facility] GLUCOSE 97 70 - 99 mg/dL [facility] ALBUMIN 4.0 3.9 - 4.8 g/dL [facility] TOTAL PROTEIN 7.3 6.5 - 8.0 g/dL [facility] CALCIUM 9.7 8.4 - 10.3 mg/dL [facility] ALKALINE PHOSPHATASE 61 39 - 117 U/L [facility] TOTAL BILIRUBIN 0.7 0.0 - 1.2 mg/dL [facility] AST 21 0 - 37 U/L [facility] ALT 16 0 - 40 U/L [facility] GLOBULIN 3.3 1 - 4.8 g/dL [facility] EGFR 86 >59 mL/min/1.7 3m2 [facility] Comment:If patient is black, multiply result by 1.159. Estimated glomerular filtration rate calculated using the CKD-EPI equation. ANION GAP 17 10 - 20 mmol/L [facility] Blood 10/29/2017 12:2 4 PM EDT 10/29/2017 12:26 PM EDT us Mikel Guidry MD LAB BLOOD ORDERABLES Final Resu lt Performing Organization Address City/State/[facility] Co de Phone Number [address] [address] documented in this encounter Visit Diagnoses Diagnosis [...] documented as of this encounter Care Teams Restaurant Maintenance Technician Relationship Specialty Start Date End Date Renard, Abraham Joel MD [address] [place] [address] [address] & [address] [place], [place] [id number] [email or web address] PCP - General Internal Medicine 07/10/17 documented as of this encounter Additional Source Comments The information contained in this document represents components of the legal health record. It is not the complete legal health record.[facility]
--- OUTSIDE RECORDS SUMMARY | 2025-02-11 11:16 | XMS_ITS | Encounter Summary ---
Author Organization [facility] Address [address] [place] [address] [place] [address] Phone Care Team Providers Care Lead Massage Therapist Name Role Phone Unknown, Unknown Primary Care Provider Abraham Galvan MD Primary Care Provider Encounter Details Date Type Department Care Team (Latest Contact Info) Description 03/05/2017 Transcribe Orders [facility] [address] [place] [phone] Harmeet Muñoz MD [address] [place] [phone] Routine general medical examination at a health [...] EST) PT 34.3(H) 10.2 - 12.9 sec [facility] INR 3.0(H) 0.9 - 1.1 [facility] Comment:Therapeutic range fo r oral Vitamin K antagonists: 2.0-3.5 Blood 03/05/2017 10:3 1 AM EST 03/05/2017 10:36 AM EST us Abraham Glynn MD LAB BLOOD ORDERABLES Final Resu lt Performing Organization Address [facility]/ZIP Co de Phone Number [address] [address] * Magnesium (03/05/2017 10:31 AM EST) Pathologist [facility] MAGNESIUM 2.2 1.6 - 2.6 mg/dL [facility] Blood 03/05/2017 10:3 1 AM EST 03/05/2017 10:36 AM EST Harmeet Muñoz MD LAB BLOOD ORDERABLES Final Result Performing Organization Address [facility] Co de Phone Number [address] [address] * Basic metabolic panel (03/05/2017 10:31 AM EST) SODIUM 142 133 - 146 mmol/L [facility] CHLORIDE 103 96 - 108 mmol/L [facility] POTASSIUM 4.5 3.3 - 5.1 mmol/L [facility] CO2 29 21 - 35 mmol/L [facility] BUN 16 6 - 19 mg/dL [facility] CREATININE 0.80 0.5 - 1.5 mg/dL [facility] GLUCOSE 82 70 - 99 mg/dL [facility] CALCIUM 9.8 8.4 - 10.3 mg/dL [facility] EGFR >60 60 - 1000 mL/min/1.7 3m2 [facility] Comment:Abnormal if <60. If patient is -Montserratian, multiply the result by 1.21. ANION GAP 15 10 - 20 mmol/L [facility] Blood 03/05/2017 10:3 1 AM EST 03/05/2017 10:36 AM EST Harmeet Muñoz MD LAB BLOOD ORDERABLES Final Result [facility] [address] [place] [address] documented in this encounter Visit Diagnoses Diagnosis [...] documented as of this encounter Care Teams Lead Massage Therapist Relationship Specialty Start Date End Date Unknown, Unknown, MD PCP - General 03/05/17 07/09/17 Renard, Abraham Joel MD [address] [place] [address] & [address] [place] [phone] [email or web address] PCP - General Internal Medicine 07/10/17 documented as of this encounter Additional Source Comments The information contained in this document represents components of the legal health record. It is not the complete legal health record.[facility]
--- OUTSIDE RECORDS SUMMARY | 2025-02-11 11:16 | XMS_ITS | Clinical Summary ---
Author Organization [facility] Address [address] [place] [phone] Phone Care Team Providers Care Sheeter Operator Name Role Phone Renard, Abraham Joel MD Primary Care Provider [phone] Allergies No known active allergies Medications butalbital-aceta minophen-caffein e-codeine (FIORICET WITH CODEINE) [id number] mg Cap 1 tab(s) 01/03/2011 Active SUMAtriptan [...] EST) SODIUM 139 133 - 146 mmol/L [facility] POTASSIUM 4.0 3.3 - 5.1 mmol/L [facility] CHLORIDE 101 96 - 108 mmol/L [facility] CO2 26 21 - 35 mmol/L [facility] BUN 18 6 - 19 mg/dL [facility] CREATININE 0.80 0.5 - 1.5 mg/dL [facility] GLUCOSE 118(H) 70 - 99 mg/dL [facility] ALBUMIN 4.6 3.9 - 4.8 g/dL [facility] TOTAL PROTEIN 7.4 6.5 - 8.0 g/dL [facility] CALCIUM 9.4 8.4 - 10.3 mg/dL [facility] ALKALINE PHOSPHATASE 77 39 - 117 U/L [facility] TOTAL BILIRUBIN 0.4 0.0 - 1.2 mg/dL [facility] AST 30 0 - 37 U/L [facility] ALT 32 0 - 40 U/L [facility] GLOBULIN 2.8 1 - 4.8 g/dL [facility] EGFR 100 >59 mL/min/1.7 3m2 [facility] Comment:Estimated glomerular filtration rate calculated using the CKD-EPI equation. ANION GAP 16 10 - 20 mmol/L [facility] Blood 02/22/2021 10:5 5 AM EST 02/22/2021 10:59 AM EST us Abraham Glynn MD LAB BLOOD ORDERABLES Final Resu lt Performing Organization Address [facility] Co de Phone Number [address] [address] * (ABNORMAL) Lipid panel (02/22/2021 10:55 AM EST) HDL 39 mg/dL [facility] Comment: Interpretation <40 mg/dL: Low HDL cholesterol (major risk factor for CHD) Greater than or equal to 60 mg/dL: High HDL cholesterol ( negative risk factor for CHD) HDL - cholesterol is affected by a number of factors, e.g. smoking, excerise, hormones, sex and age. CHOLESTEROL 211 0 - 240 mg/dL [facility] TRIGLYCERIDES 201(H) 30 - 160 mg/dL [facility] LDL 132(H) 50 - 129 mg/dL [facility] Comment: LDL levels in terms of risk for coronary heart disease: <100 mg/dL: Optimal 100-129 mg/dL: Near or above optimal 130-159 mg/dL: Borderline high 160-189 mg/dL: High >190 mg/dL: Very High CARDIAC RISK RATIO 5.4(H) 3.4 - 5.0 C [facility] Blood 02/22/2021 10:5 5 AM EST 02/22/2021 10:59 AM EST us Abraham Glynn MD LAB BLOOD ORDERABLES Final Resu lt Performing Organization Address [facility]/ZIP Co de Phone Number [address] [address] from Last 3 Months or Most Recently Relevant to Health Maintenance Insurance [employer]NA [employer] P[employer] CIGNA [employer] PPO CIGNA [employer] PPO CIGNA [employer] PPO CIGNA [employer] PPO CIGNA [employer] PPO CIGNA [employer] PPO CIGNA [employer] PPO Care Teams Sheeter Operator Relationship Specialty Start Date End Date Renard, Abraham Joel MD [address] [place] [address] & [address] [place] [id number] [email or web address] PCP - General Internal Medicine 07/10/17 Additional Source Comments The information contained in this document represents components of the legal health record. It is not the complete legal health record.[facility]
--- OUTSIDE RECORDS SUMMARY | 2025-02-11 11:16 | XMS_ITS | Encounter Summary ---
Author Organization [facility] Address [address] [place] [address] Phone Care Team Providers Care Product Managent Intern Name Role Phone Renard, Abraham Joel MD Primary Care Provider [phone] Encounter Details Date Type Department Care Team (Latest Contact Info) Description 11/24/2018 Transcribe Orders Virtual Department [address] [place] [address] Eliazar Hall MD [address] [place] [address], [address] [place] [address] [email or web address] TIA (transient ischemic attack) (Primary Dx); [...] documented as of this encounter Care Teams Product Managent Intern Relationship Specialty Start Date End Date Renard, Abraham Joel MD [address] [place] [address] & [address] [place] [phone] [email or web address] PCP - General Internal Medicine 07/10/17 documented as of this encounter Additional Source Comments The information contained in this document represents components of the legal health record. It is not the complete legal health record.[facility]
--- OUTSIDE RECORDS SUMMARY | 2025-02-11 11:16 | XMS_ITS | Encounter Summary ---
Author Organization [facility] Address [address] [place] [address] Phone Care Team Providers Care Business Administration Professor Name Role Phone Abraham Glynn MD Primary Care Provider [phone] Encounter Details Date Type Department Care Team (Latest Contact Info) Description 04/30/2019 Transcribe Orders [facility] Specimen Processing 30 [place] [address] Abraham Glynn MD 264 [facility] 10 [address] [place] [address] [email or web address] Palpitations (Primary Dx) Social History Tobacco [...] EST) MAGNESIUM 2.1 1.6 - 2.6 mg/dL [facility] Blood 04/30/2019 2:19 PM EST 04/30/2019 2:22 PM EST Abraham Glynn MD LAB BLOOD ORDERABLES Final Resu lt [facility] 30 [place] [address] * CBC and differential (04/30/2019 2:19 PM EST) WBC 4.10 3.40 - 11.20 K/uL [facility] RBC 5.12 4.50 - 5.50 M/uL [facility] HGB 15.1 13.0 - 17.0 g/dL [facility] HCT 43.7 40.0 - 51.0 % [facility] PLT 182 130 - 400 K/uL [facility] MCV 85.4 79.0 - 98.0 fL [facility] MCH 29.5 27.0 - 34.8 pg [facility] MCHC 34.6 31.5 - 36.0 g/dL [facility] RDW 13.1 10.8 - 14.6 % [facility] MPV 11.2 9.4 - 12.4 fl [facility] NRBC 0.00 0.00 /100 WBCs [facility] ABSOLUTE NRBC 0.00 0.00 K/uL [facility] DIFF METHOD Auto [facility] NEUTS 52.2 45.30 - 77.70 % [facility] LYMPHS 35.4 12.30 - 39.70 % [facility] MONOS 10.5 4.10 - 12.80 % [facility] EOS 0.7 0 - 7.2 % [facility] BASOS 0.7 0 - 2.80 % [facility] Granulocytes, immature (%) 0.5 0.0 - 0.9 % [facility] ABSOLUTE NEUTS 2.14 1.40 - 7.70 K/uL [facility] ABSOLUTE LYMPHS 1.45 0.60 - 3.20 K/uL [facility] ABSOLUTE MONOS 0.43 0.11 - 0.59 K/uL [facility] ABSOLUTE EOS 0.03 0.01 - 0.50 K/uL [facility] ABSOLUTE BASOS 0.03 0.00 - 0.08 K/uL [facility] Granulocytes, immature 0.02 0.00 - 0.05 K/uL [facility] Blood 04/30/2019 2:19 PM EST 04/30/2019 2:22 PM EST Abraham Glynn MD LAB BLOOD ORDERABLES Final Resu lt Performing Organization Address [facility] Co de Phone Number [address] [address] * TSH with reflex (04/30/2019 2:19 PM EST) TSH 1.48 0.27 - 4.20 uIU/mL [facility] Blood 04/30/2019 2:19 PM EST 04/30/2019 2:22 PM EST Abraham Glynn MD LAB BLOOD ORDERABLES Final Resu lt Performing Organization Address [facility] de Phone Number [address] [address] * (ABNORMAL) Basic metabolic panel (04/30/2019 2:19 PM EST) SODIUM 139 133 - 146 mmol/L [facility] CHLORIDE 100 96 - 108 mmol/L [facility] POTASSIUM 3.8 3.3 - 5.1 mmol/L [facility] CO2 27 21 - 35 mmol/L [facility] BUN 13 6 - 19 mg/dL [facility] CREATININE 0.90 0.5 - 1.5 mg/dL [facility] GLUCOSE 61(L) 70 - 99 mg/dL [facility] CALCIUM 9.7 8.4 - 10.3 mg/dL [facility] EGFR 96 >59 mL/min/1.7 3m2 [facility] Comment:If patient is black, multiply result by 1.159. Estimated glomerular filtration rate calculated using the CKD-EPI equation. ANION GAP 16 10 - 20 mmol/L [facility] Blood 04/30/2019 2:19 PM EST 04/30/2019 2:22 PM EST Abraham Glynn MD LAB BLOOD ORDERABLES Final Resu lt Performing Organization Address City/[facility]/ZIP Co de Phone Number [facility] [address] [place] [address] documented in this encounter Visit Diagnoses Diagnosis [...] documented as of this encounter Care Teams Business Administration Professor Relationship Specialty Start Date End Date Abraham Glynn MD [address] [place] [address] [address] [place] [address] [email or web address] PCP - General Internal Medicine 07/10/17 documented as of this encounter Additional Source Comments The information contained in this document represents components of the legal health record. It is not the complete legal health record.[facility]
--- OUTSIDE RECORDS SUMMARY | 2025-02-11 11:16 | XMS_ITS | Encounter Summary ---
Author Organization [facility] Address [address] [place] [address] [place] [address] Phone Care Team Providers Care Furs Salesperson Name Role Phone RenardAbraham MD Primary Care Provider [phone] Encounter Details Date Type Department Care Team (Latest Contact Info) Description 08/28/2017 Transcribe Orders [facility] [address] [place] [address] Renard, Abraham Joel MD [address] [place] [address] [address] [place] [address] [email or web address] Heart valve replaced (Primary Dx) Social [...] EDT) PT 38.3(H) 10.2 - 12.9 sec [facility] INR 3.3(H) 0.9 - 1.1 [facility] Comment:Therapeutic range fo r oral Vitamin K antagonists: 2.0-3.5 Blood 08/28/2017 9:22 AM EDT 08/28/2017 9:41 AM EDT Abraham Glynn MD LAB BLOOD ORDERABLES Final Resu lt [address] [address] documented in this encounter Visit Diagnoses Diagnosis [...] documented as of this encounter Care Teams Furs Salesperson Relationship Specialty Start Date End Date Abraham Glynn MD [address] [place] [address] & [address] [place] [address] [email or web address] PCP - General Internal Medicine 07/10/17 documented as of this encounter Additional Source Comments The information contained in this document represents components of the legal health record. It is not the complete legal health record.[facility]
--- OUTSIDE RECORDS SUMMARY | 2025-02-11 11:16 | XMS_ITS | Encounter Summary ---
Author Organization [facility] Address [address] [place] [address] [place] [address] Phone Care Team Providers Care Photographic Hand Developer Name Role Phone Abraham Glynn MD Primary Care Provider [phone] Encounter Details Date Type Department Care Team (Latest Contact Info) Description 01/21/2019 Transcribe Orders [facility] [address] [place] [address] Renard, Abraham Joel MD [address] [place] [address] 10 & [address] [place] [address] [email or web address] Routine general medical examination at a [...] EDT) WBC 3.43 3.40 - 11.20 K/uL [facility] RBC 5.13 4.50 - 5.50 M/uL [facility] HGB 15.0 13.0 - 17.0 g/dL [facility] HCT 43.4 40.0 - 51.0 % [facility] PLT 204 130 - 400 K/uL [facility] MCV 84.6 79.0 - 98.0 fL [facility] MCH 29.2 27.0 - 34.8 pg [facility] MCHC 34.6 31.5 - 36.0 g/dL [facility] RDW 12.8 10.8 - 14.6 % [facility] MPV 11.3 9.4 - 12.4 fl [facility] NRBC 0.00 0.00 /100 WBCs [facility] ABSOLUTE NRBC 0.00 0.00 K/uL [facility] DIFF METHOD Auto [facility] NEUTS 43.6(L) 45.30 - 77.70 % [facility] LYMPHS 42.6(H) 12.30 - 39.70 % [facility] MONOS 11.1 4.10 - 12.80 % [facility] EOS 0.9 0 - 7.2 % [facility] BASOS 1.2 0 - 2.80 % [facility] Granulocytes, immature (%) 0.6 0.0 - 0.9 % [facility] ABSOLUTE NEUTS 1.50 1.40 - 7.70 K/uL [facility] ABSOLUTE LYMPHS 1.46 0.60 - 3.20 K/uL [facility] ABSOLUTE MONOS 0.38 0.11 - 0.59 K/uL [facility] ABSOLUTE EOS 0.03 0.01 - 0.50 K/uL [facility] ABSOLUTE BASOS 0.04 0.00 - 0.08 K/uL [facility] Granulocytes, immature 0.02 0.00 - 0.05 K/uL [facility] Blood 01/21/2019 7:40 AM EDT 01/21/2019 8:07 AM EDT us Abraham Glynn MD LAB BLOOD ORDERABLES Final Resu lt [facility] 30 [place] [address] * Basic metabolic panel (01/21/2019 7:40 AM EDT) SODIUM 140 133 - 146 mmol/L [facility] CHLORIDE 104 96 - 108 mmol/L [facility] POTASSIUM 4.6 3.3 - 5.1 mmol/L [facility] CO2 28 21 - 35 mmol/L [facility] BUN 17 6 - 19 mg/dL [facility] CREATININE 0.90 0.5 - 1.5 mg/dL [facility] GLUCOSE 94 70 - 99 mg/dL [facility] CALCIUM 9.7 8.4 - 10.3 mg/dL [facility] EGFR 96 >59 mL/min/1.7 3m2 [facility] Comment:If patient is black, multiply result by 1.159. Estimated glomerular filtration rate calculated using the CKD-EPI equation. ANION GAP 13 10 - 20 mmol/L [facility] Blood 01/21/2019 7:40 AM EDT 01/21/2019 8:07 AM EDT us Abraham Glynn MD LAB BLOOD ORDERABLES Final Resu lt Performing Organization Address City/State/[facility] Co de Phone Number [facility] [address] [place] [address] documented in this encounter Visit Diagnoses Diagnosis [...] documented as of this encounter Care Teams Photographic Hand Developer Relationship Specialty Start Date End Date Abraham Glynn MD [address] [place] [address] [address] [place] [address] [email or web address] PCP - General Internal Medicine 07/10/17 documented as of this encounter Additional Source Comments The information contained in this document represents components of the legal health record. It is not the complete legal health record.[facility]
--- OUTSIDE RECORDS SUMMARY | 2025-02-11 11:16 | XMS_ITS | Encounter Summary ---
Author Organization [facility] Address [address] [facility] [address] [place] [address] Phone Care Team Providers Care Electric Blasting Cap Assembler Name Role Phone Unknown, Unknown Primary Care Provider Abraham Galvan MD Primary Care Provider [phone] Encounter Details Date Type Department Care Team (Latest Contact Info) Description 05/13/2017 Transcribe Orders [facility] [address] [place] [address] RenardAbraham MD [address] [place] [address] [address] [place] [address] [email or web address] Heart valve replaced (Primary Dx) [...] documented as of this encounter Care Teams Electric Blasting Cap Assembler Relationship Specialty Start Date End Date Unknown, Unknown, MD PCP - General 03/05/17 07/09/17 Renard, Abraham Joel MD [address] [place] [address] [address] [place] [address] [email or web address] PCP - General Internal Medicine 07/10/17 documented as of this encounter Additional Source Comments The information contained in this document represents components of the legal health record. It is not the complete legal health record.[facility]
--- OUTSIDE RECORDS SUMMARY | 2025-02-11 11:16 | XMS_ITS | Encounter Summary ---
Author Organization [facility] Address [address] [facility] [address] [place] [address] Phone Care Team Providers Care Clerical Adviser Name Role Phone Unknown, Unknown Primary Care Provider Abraham Galvan MD Primary Care Provider [phone] Encounter Details Date Type Department Care Team (Latest Contact Info) Description 03/05/2017 Transcribe Orders [facility] [address] [place] [address] Renard, Abraham Joel MD [address] [address] 10 & [address] [place] [address] [email or web address] Heart valve replaced (Primary Dx) Social [...] EST) PT 34.3(H) 10.2 - 12.9 sec [facility] INR 3.0(H) 0.9 - 1.1 [facility] Comment:Therapeutic range fo r oral Vitamin K antagonists: 2.0-3.5 Blood 03/05/2017 10:3 1 AM EST 03/05/2017 10:36 AM EST Abraham Glynn MD LAB BLOOD ORDERABLES Final Resu lt [facility] 30 [place] [address] documented in this encounter Visit Diagnoses Diagnosis [...] documented as of this encounter Care Teams Clerical Adviser Relationship Specialty Start Date End Date Unknown, Unknown, MD PCP - General 03/05/17 07/09/17 Renard, Abraham Joel MD [address] [facility] [address] [place] [address] [email or web address] PCP - General Internal Medicine 07/10/17 documented as of this encounter Additional Source Comments The information contained in this document represents components of the legal health record. It is not the complete legal health record.[facility]
--- OUTSIDE RECORDS SUMMARY | 2025-02-11 11:16 | XMS_ITS | Encounter Summary ---
Author Organization [facility] Address [address] [facility] [address] [place] [address] Phone Care Team Providers Care Machine Feeder Floorperson Name Role Phone Unknown, Unknown Primary Care Provider Abraham Galvan MD Primary Care Provider [phone] Encounter Details Date Type Department Care Team (Latest Contact Info) Description 06/16/2017 [address]cribe [address] [facility] [address] [place] [address] Renard, Abraham Joel MD [address] [place] [address] 10 [address] [place] [address] [email or web address] Routine general medical examination at a [...] VALPROIC ACID <2.8(L) 50.0 - 100.0 ug/mL [facility] Blood 06/16/2017 8:16 AM EST 06/16/2017 8:50 AM EST Abraham Glynn MD LAB BLOOD ORDERABLES Final Resu lt Performing Organization Address City/[facility]/ZIP Co de Phone Number [address] [address] * PSA (screening) (06/16/2017 8:16 AM EST) PSA 0.89 0 - 4.00 ng/mL [facility] Blood 06/16/2017 8:16 AM EST 06/16/2017 8:51 AM EST Abraham Glynn MD LAB BLOOD ORDERABLES Final Resu lt Performing Organization Address [facility] de Phone Number [address] [address] * CBC and differential (06/16/2017 8:16 AM EST) WBC 3.50 3.40 - 11.20 K/uL [facility] RBC 5.13 4.50 - 5.50 M/uL [facility] HGB 15.2 13.0 - 17.0 g/dL [facility] HCT 44.2 40.0 - 51.0 % [facility] PLT 183 130 - 400 K/uL [facility] MCV 86.2 79.0 - 98.0 fL [facility] MCH 29.6 27.0 - 34.8 pg [facility] MCHC 34.4 31.5 - 36.0 g/dL [facility] RDW 13.2 10.8 - 14.6 % [facility] MPV 11.7 9.4 - 12.4 fl [facility] NRBC 0.00 /100 WBCs [facility] ABSOLUTE NRBC 0.00 K/uL [facility] DIFF METHOD Auto [facility] NEUTS 50.9 45.30 - 77.70 % [facility] LYMPHS 36.9 12.30 - 39.70 % [facility] MONOS 9.7 4.10 - 12.80 % [facility] EOS 1.1 0 - 7.2 % [facility] BASOS 1.4 0 - 2.80 % [facility] Granulocytes, immature (%) 0.0 0.0 - 0.9 % [facility] ABSOLUTE NEUTS 1.78 1.40 - 7.70 K/uL [facility] ABSOLUTE LYMPHS 1.29 0.60 - 3.20 K/uL [facility] ABSOLUTE MONOS 0.34 0.11 - 0.59 K/uL [facility] ABSOLUTE EOS 0.04 0.01 - 0.50 K/uL [facility] ABSOLUTE BASOS 0.05 0.00 - 0.08 K/uL [facility] Granulocytes, immature 0.00 0.00 - 0.05 K/uL [facility] Blood 06/16/2017 8:16 AM EST 06/16/2017 8:50 AM EST us Abraham Glynn MD LAB BLOOD ORDERABLES Final Resu lt Performing Organization Address [facility] Co de Phone Number [address] [address] * TSH with reflex (06/16/2017 8:16 AM EST) TSH 2.80 0.27 - 4.20 uIU/mL [facility] Blood 06/16/2017 8:16 AM EST 06/16/2017 8:50 AM EST us Abraham Glynn MD LAB BLOOD ORDERABLES Final Resu lt Performing Organization Address [facility] Co de Phone Number [address] [address] * (ABNORMAL) Lipid panel (06/16/2017 8:16 AM EST) HDL 40 mg/dL [facility] Comment: Interpretation: Risk Level Males Decreased >45 mg/dL Average 40-45 mg/dL Increased <40 mg/dL CHOLESTEROL 209 0 - 240 mg/dL [facility] TRIGLYCERIDES 157 30 - 160 mg/dL [facility] LDL 138(H) 50 - 129 mg/dL [facility] Comment: LDL levels in terms of risk for coronary heart disease: <100 mg/dL: Optimal 100-129 mg/dL: Near or above optimal 130-159 mg/dL: Borderline high 160-189 mg/dL: High >190 mg/dL: Very High CARDIAC RISK RATIO 5.2(H) 3.4 - 5.0 C [facility] Blood 06/16/2017 8:16 AM EST 06/16/2017 8:50 AM EST Abraham Glynn MD LAB BLOOD ORDERABLES Final Resu lt [facility] 30 [place] [address] * Comprehensive metabolic panel (06/16/2017 8:16 AM EST) SODIUM 142 133 - 146 mmol/L [facility] POTASSIUM 4.3 3.3 - 5.1 mmol/L [facility] CHLORIDE 102 96 - 108 mmol/L [facility] CO2 27 21 - 35 mmol/L [facility] BUN 17 6 - 19 mg/dL [facility] CREATININE 0.90 0.5 - 1.5 mg/dL [facility] GLUCOSE 90 70 - 99 mg/dL [facility] ALBUMIN 4.2 3.9 - 4.8 g/dL [facility] TOTAL PROTEIN 7.4 6.5 - 8.0 g/dL [facility] CALCIUM 9.4 8.4 - 10.3 mg/dL [facility] ALKALINE PHOSPHATASE 58 39 - 117 U/L [facility] TOTAL BILIRUBIN 0.9 0.0 - 1.2 mg/dL [facility] AST 30 0 - 37 U/L [facility] ALT 31 0 - 40 U/L [facility] GLOBULIN 3.2 1 - 4.8 g/dL [facility] EGFR >60 >60 mL/min/1.7 3m2 [facility] Comment:Abnormal if <60. If patient is -Burmese, multiply the result by 1.21. ANION GAP 17 10 - 20 mmol/L [facility] Blood 06/16/2017 8:16 AM EST 06/16/2017 8:50 AM EST us Abraham Glynn MD LAB BLOOD ORDERABLES Final Resu lt [facility] [address] [place] [address] documented in this encounter Visit Diagnoses Diagnosis [...] documented as of this encounter Care Teams Machine Feeder Floorperson Relationship Specialty Start Date End Date Unknown, Unknown, MD PCP - General 03/05/17 07/09/17 Renard, Abraham Joel MD [address] [place] [address] [address] [place] [address] [email or web address] PCP - General Internal Medicine 07/10/17 documented as of this encounter Additional Source Comments The information contained in this document represents components of the legal health record. It is not the complete legal health record.[facility]
--- OUTSIDE RECORDS SUMMARY | 2025-02-11 11:16 | XMS_ITS | Encounter Summary ---
Author Organization [facility] Address [address] [place] [address] Phone Care Team Providers Care Instructor Dramatic Arts Name Role Phone Abraham Glynn MD Primary Care Provider [phone] Encounter Details Date Type Department Care Team (Late st Contact Info) Description 10/25/2022 Procedure Pass [facility] Endoscopy Admitting Dept Virtual Department [address] [place] [address] Social History Tobacco Use Types Packs/Day Years [...] on filedocumented in this encounter Care Teams Instructor Dramatic Arts Relationship Specialty Start Date End Date Abraham Glynn MD [address] [place] [address] [address] [place] [address] [email or web address] PCP - General Internal Medicine 07/10/17 documented as of this encounter Additional Source Comments The information contained in this document represents components of the legal health record. It is not the complete legal health record.[facility]
--- OUTSIDE RECORDS SUMMARY | 2025-02-11 11:17 | XMS_ITS | Encounter Summary ---
Author Organization [facility] Address [address] [place] [address] Phone Care Team Providers Care Pewter Finisher Name Role Phone Abraham Glynn MD Primary Care Provider [phone] Encounter Details Date Type Department Care Team (Late st Contact Info) Description 07/10/2017 Ancillary Orders Virtual Department [address] [place] [address] RenardAbraham MD [address] [facility] [address] [place] [address] [email or web address] Cough Social History Tobacco Use [...] documented as of this encounter Care Teams Pewter Finisher Relationship Specialty Start Date End Date Renard, Abraham Joel MD [address] [place] [address] [address] [place] [address] [email or web address] PCP - General Internal Medicine 07/10/17 documented as of this encounter Additional Source Comments The information contained in this document represents components of the legal health record. It is not the complete legal health record.[facility]
--- OUTSIDE RECORDS SUMMARY | 2025-02-11 11:17 | XMS_ITS | Encounter Summary ---
Author Organization [facility] Address [address] [facility] [address] [place] [address] Phone Care Team Providers Care Salesforce Trainer Name Role Phone Abraham Glynn MD Primary Care Provider [phone] Encounter Details Date Type Department Care Team (Late st Contact Info) Description 07/10/2017 Ancillary Orders [facility], X-Ray - [address] [address] Renard, Abraham Joel MD [address] [place] [address] [address] [place] [address] [email or web address] Cough Social History Tobacco Use Types [...] documented as of this encounter Care Teams Salesforce Trainer Relationship Specialty Start Date End Date Abraham Glynn MD [address] [place] [address] [address] [place] [address] [email or web address] PCP - General Internal Medicine 07/10/17 documented as of this encounter Additional Source Comments The information contained in this document represents components of the legal health record. It is not the complete legal health record.[facility]
--- OUTSIDE RECORDS SUMMARY | 2025-02-11 11:17 | XMS_ITS | Encounter Summary ---
Author Organization [facility] Address [address] [place] [address] Phone Care Team Providers Care Primer Charger Name Role Phone Renard, Abraham Joel MD Primary Care Provider [phone] Encounter Details Date Type Department Care Team (Late st Contact Info) Description 03/11/2020 Procedure Pass [facility], Ct Scan - [facility] [address] [place] [address] Social History Tobacco Use Types Packs/Day Years [...] 03/11/2020 7:00 PM Juan Waterman RN * Harmony Suicide Severity Rating Scale (Screener/Recent Self-Report) Question [...] documented as of this encounter Care Teams Primer Charger Relationship Specialty Start Date End Date RenardAbraham bauer MD [address] [place] [address] [address] [place] [address] [email or web address] PCP - General Internal Medicine 07/10/17 documented as of this encounter Additional Source Comments The information contained in this document represents components of the legal health record. It is not the complete legal health record.[facility]
== END 2025-02-11 10:20 | disposition home or self-care (01) ==
LOC: HO.ACS 10:02
PROVIDERS: PCP Internal Medicine; Visit Provider Internal Medicine Medical Oncology
DX: Z79.01 Long term (current) use of anticoagulants (principal)

== ENCOUNTER → 2025-02-11 10:02 | Outpatient (BNVA) | payer BC, SELFPAY | PROVIDERS: PCP Internal Medicine; Visit Provider Internal Medicine Medical Oncology | DX: Z95.2 Presence of prosthetic heart valve (principal); Z79.01 Long term (current) use of anticoagulants; Z51.81 Encounter for therapeutic drug level monitoring | CPT/HCPCS: 85610; 99211 ==

== ENCOUNTER 2025-03-14 15:09 | Outpatient (AMB) | payer BC, SELFPAY ==
[2025-03-14 15:15] LABS: Prothrombin Time Whole Bld POC 31.9 sec (11.1-13.5); ~PT, ~INR - Anti Coag Clinic 2.7 (0.9-1.1)
--- NOTE | 2025-03-14 15:17 | MHC.OFFVISCO ---
Intake Intake Visit Reasons: Anticoagulation Allergies No Known Drug Allergies Allergy (Unknown, Verified 03/14/25 15:09) Unknown Medication List - Last Reconciled 03/14/25 by Virginia Smallwood RN amoxicillin 2,000 mg PO ONCE amoxicillin 2,000 mg PO ONCE [id number] 50-325-40 mg 1 cap PO Q6H PRN cholecalciferol (vitamin D3) 50 mcg PO DAILY metoprolol succinate ER 50 mg PO DAILY metronidazole 0.75% appl topical BID sumatriptan succinate 50 mg PO Q2-4H PRN valsartan 40 mg PO DAILY warfarin 5 mg See Protocol PO DAILY Nursing Note INR: 2.7 in therapeutic range of 2.5-3.5 Medications and supplements reviewed No changes in health, diet, medications, or supplements, Denies any signs and symptoms of bleeding or bruising or clotting. Bleeding, bruising, clotting discussed Nutritional guidance given Dose: 5mg X 6 days and 2.5mg X 1 day () F/U INR: 04/18/25 Patient verbalizes understanding of instructions given Anti-Coag Initial Assessment Social Hx Patient Tobacco Use Status: Never used Tobacco alcohol intake: current Alcohol intake frequency: does not drink Cardiovascular Hx: Cardiomyopathy and Other Musculoskeletal Hx: Arthritis Neurological Hx: Migraines/Headaches and Other Cancer HX: No Psych. Illness/Depression: No Coding Level of Care Code Est Patient Level 1 Diagnoses Current use of anticoagulant therapy Z79.01 Assessment & Plan Assessment & Plan (1) Current use of anticoagulant therapy: Code(s): Z79.01 - half-way (current) use of anticoagulants Category: Medical
--- OUTSIDE RECORDS SUMMARY | 2025-03-14 18:16 | XMS_ITS | Encounter Summary ---
Author Organization [facility] Address [address] [address] Phone Care Team Providers Care Cadd Instructor Name Role Phone Abraham Glynn MD Primary Care Provider [phone] Encounter Details Date Type Department Care Team (Latest Contact Info) Description 08/28/2017 Transcribe Orders [address] [address] RenardAbraham bauer MD [address] [place] [address] [address] & [address] [place] [address] [email or web address] Heart valve replaced (Primary Dx) Social [...] EDT) PT 38.3(H) 10.2 - 12.9 sec [facility] INR 3.3(H) 0.9 - 1.1 [facility] Comment:Therapeutic range fo r oral Vitamin K antagonists: 2.0-3.5 Blood 08/28/2017 9:22 AM EDT 08/28/2017 9:41 AM EDT Abraham Glynn MD LAB BLOOD BKR ORDERABLES Final Result [address] [address] documented in this encounter Visit Diagnoses Diagnosis [...] documented as of this encounter Care Teams Cadd Instructor Relationship Specialty Start Date End Date Abraham Glynn MD [address] [place] [address] & [address] [place] [address] [email or web address] PCP - General Internal Medicine 07/10/17 documented as of this encounter Additional Source Comments The information contained in this document represents components of the legal health record. It is not the complete legal health record.[facility]
--- OUTSIDE RECORDS SUMMARY | 2025-03-14 18:16 | XMS_ITS | Encounter Summary ---
Author Organization [facility] Address [address] [place] [address] Phone Care Team Providers Care Radar Scientist Name Role Phone Abraham Glynn MD Primary Care Provider [phone] Encounter Details Date Type Department Care Team (Late st Contact Info) Description 07/10/2017 Ancillary Orders Virtual Department [address] [place] [address] RenardAbraham MD [address] [facility] [address] [place] [address] [email or web address] Cough Social History Tobacco Use Types [...] documented as of this encounter Care Teams Radar Scientist Relationship Specialty Start Date End Date Renard, Abraham Joel MD [address] [place] [address] [address] & [address] [place] [address] [email or web address] PCP - General Internal Medicine 07/10/17 documented as of this encounter Additional Source Comments The information contained in this document represents components of the legal health record. It is not the complete legal health record.[facility]
--- OUTSIDE RECORDS SUMMARY | 2025-03-14 18:16 | XMS_ITS | Encounter Summary ---
Author Organization [facility] Address [address] [place] [address] Phone Care Team Providers Care Certified Nuclear Medicine Technologist Name Role Phone Abraham Glynn MD Primary Care Provider [phone] Encounter Details Date Type Department Care Team (Late st Contact Info) Description 10/25/2022 Procedure Pass [facility] Endoscopy Admitting Dept Virtual Department [address] [place] [address] Social History Tobacco Use Types Packs/Day Years [...] on filedocumented in this encounter Care Teams Certified Nuclear Medicine Technologist Relationship Specialty Start Date End Date Abraham Glynn MD [address] [place] [address] [address] [place] [address] [email or web address] PCP - General Internal Medicine 07/10/17 documented as of this encounter Additional Source Comments The information contained in this document represents components of the legal health record. It is not the complete legal health record.[facility]
--- OUTSIDE RECORDS SUMMARY | 2025-03-14 18:16 | XMS_ITS | Encounter Summary ---
Author Organization [facility] Address [address] [place] [address] Phone Care Team Providers Care Coal Getter Name Role Phone Abraham Glynn MD Primary Care Provider [phone] Encounter Details Date Type Department Care Team (Latest Contact Info) Description 04/30/2019 Transcribe Orders [facility] Specimen Processing [address] [place] [address] RenardAbraham bauer MD [address] [place] [address] [address] [place] [address] [email or web address] Palpitations (Primary Dx) Social History Tobacco Use [...] EST) MAGNESIUM 2.1 1.6 - 2.6 mg/dL [facility] Blood 04/30/2019 2:19 PM EST 04/30/2019 2:22 PM EST Abraham Glynn MD LAB BLOOD BKR ORDERABLES Final Result [facility] [address] [place], [place] [id number] * CBC and differential (04/30/2019 2:19 PM EST) WBC 4.10 3.40 - 11.20 K/uL [facility] RBC 5.12 4.50 - 5.50 M/uL [facility] HGB 15.1 13.0 - 17.0 g/dL [facility] HCT 43.7 40.0 - 51.0 % [facility] PLT 182 130 - 400 K/uL [facility] MCV 85.4 79.0 - 98.0 fL [facility] MCH 29.5 27.0 - 34.8 pg [facility] MCHC 34.6 31.5 - 36.0 g/dL [facility] RDW 13.1 10.8 - 14.6 % [facility] MPV 11.2 9.4 - 12.4 fl [facility] NRBC 0.00 0.00 /100 WBCs [facility] ABSOLUTE NRBC 0.00 0.00 K/uL [facility] DIFF METHOD Auto [facility] NEUTS 52.2 45.30 - 77.70 % [facility] LYMPHS 35.4 12.30 - 39.70 % [facility] MONOS 10.5 4.10 - 12.80 % [facility] EOS 0.7 0 - 7.2 % [facility] BASOS 0.7 0 - 2.80 % [facility] Granulocytes, immature (%) 0.5 0.0 - 0.9 % [facility] ABSOLUTE NEUTS 2.14 1.40 - 7.70 K/uL [facility] ABSOLUTE LYMPHS 1.45 0.60 - 3.20 K/uL [facility] ABSOLUTE MONOS 0.43 0.11 - 0.59 K/uL [facility] ABSOLUTE EOS 0.03 0.01 - 0.50 K/uL [facility] ABSOLUTE BASOS 0.03 0.00 - 0.08 K/uL [facility] Granulocytes, immature 0.02 0.00 - 0.05 K/uL [facility] Blood 04/30/2019 2:19 PM EST 04/30/2019 2:22 PM EST Abraham Glynn MD LAB BLOOD BKR ORDERABLES Final Result Performing Organization Address [facility] Co de Phone Number [address] [address] * TSH with reflex (04/30/2019 2:19 PM EST) TSH 1.48 0.27 - 4.20 uIU/mL [facility] Blood 04/30/2019 2:19 PM EST 04/30/2019 2:22 PM EST Abraham Glynn MD LAB BLOOD BKR ORDERABLES Final Result Performing Organization Address [facility] de Phone Number [address] [address] * (ABNORMAL) Basic metabolic panel (04/30/2019 2:19 PM EST) SODIUM 139 133 - 146 mmol/L [facility] CHLORIDE 100 96 - 108 mmol/L [facility] POTASSIUM 3.8 3.3 - 5.1 mmol/L [facility] CO2 27 21 - 35 mmol/L [facility] BUN 13 6 - 19 mg/dL [facility] CREATININE 0.90 0.5 - 1.5 mg/dL [facility] GLUCOSE 61(L) 70 - 99 mg/dL [facility] CALCIUM 9.7 8.4 - 10.3 mg/dL [facility] EGFR 96 >59 mL/min/1.7 3m2 [facility] Comment:If patient is black, multiply result by 1.159. Estimated glomerular filtration rate calculated using the CKD-EPI equation. ANION GAP 16 10 - 20 mmol/L [facility] Blood 04/30/2019 2:19 PM EST 04/30/2019 2:22 PM EST Abraham Glynn MD LAB BLOOD BKR ORDERABLES Final Result Performing Organization Address City/[facility]/ZIP Co de Phone Number [facility] [address] [place] [address] documented in this encounter Visit Diagnoses Diagnosis [...] documented as of this encounter Care Teams Coal Getter Relationship Specialty Start Date End Date Abraham Glynn MD [address] [place] [address] 10 [address] [place] [address] [email or web address] PCP - General Internal Medicine 07/10/17 documented as of this encounter Additional Source Comments The information contained in this document represents components of the legal health record. It is not the complete legal health record.[facility]
--- OUTSIDE RECORDS SUMMARY | 2025-03-14 18:16 | XMS_ITS | Clinical Summary ---
Author Organization [facility] Address [address] [place] [address] Phone Care Team Providers Care Identification Clerk Name Role Phone Renard, Abraham Joel MD Primary Care Provider [phone] Allergies No known active allergies Medications butalbital-aceta minophen-caffein e-codeine (FIORICET WITH CODEINE) 22-758-13-30 mg Cap 1 tab(s) 01/03/2011 Active SUMAtriptan [...] (Once After 26 Yrs) 1990 COLOGUARD 2009 FIT TEST 2009 FOBT 2009 SIGMOIDOSCOPY 2009 VIRTUAL COLONOSCOPY 2009 PNEUMOCOCCAL VACCINES (50+ years) (1 of 1 - PCV) 2014 ZOSTER VACCINES (1 of 2) 2014 CREATININE LEVEL 02/22/2022 02/22/2021, , 01/20/2020, Additional history exists POTASSIUM LEVEL 02/22/2022 02/22/2021, 041 09/2020, 01/20/2020, Additional history exists Adult Td,Tdap Booster 04/01/2023 04/01/2013 INFLUENZA VACCINE (#1) 2024 02/26/2021 COVID-19 VACCINE ( season) 2024 09/28/2020, 08/30/2020 LIPID PANEL 02/22/2026 02/22/2021, 10/0 11/2019, 06/23/2018, Additional history exists COLONOSCOPY 08/07/2029 08/07/2022 COLORECTAL CANCER SCREENING 08/07/2029 RSV VACCINE (1 - 1-dose 75+ series) [...] Procedure Name Priority Date/Time Associated Diagnosis Comments COLONOSCOPY FOR RESULT ENTRY ONLY Routine 08/07/2022 LIPID PANEL Routine 02/22/2021 10:55 AM EST Screening for prostate cancer COMPREHENSIVE METABOLIC PANEL (CMP) Routine 02/22/2021 10:55 AM EST Screening for prostate cancer from Last 3 Months or Most Recently Relevant to Health Maintenance Results * COLONOSCOPY FOR RESULT ENTRY ONLY (08/07/2022) Colonoscopy External Historical Provider MD HEALTH MAINTENANCE Final Result * (ABNORMAL) Comprehensive metabolic panel (02/22/2021 10:55 AM EST) SODIUM 139 133 - 146 mmol/L [facility] POTASSIUM 4.0 3.3 - 5.1 mmol/L [facility] CHLORIDE 101 96 - 108 mmol/L [facility] CO2 26 21 - 35 mmol/L [facility] BUN 18 6 - 19 mg/dL [facility] CREATININE 0.80 0.5 - 1.5 mg/dL [facility] GLUCOSE 118(H) 70 - 99 mg/dL [facility] ALBUMIN 4.6 3.9 - 4.8 g/dL [facility] TOTAL PROTEIN 7.4 6.5 - 8.0 g/dL [facility] CALCIUM 9.4 8.4 - 10.3 mg/dL [facility] ALKALINE PHOSPHATASE 77 39 - 117 U/L [facility] TOTAL BILIRUBIN 0.4 0.0 - 1.2 mg/dL [facility] AST 30 0 - 37 U/L [facility] ALT 32 0 - 40 U/L [facility] GLOBULIN 2.8 1 - 4.8 g/dL [facility] EGFR 100 >59 mL/min/1.7 3m2 [facility] Comment:Estimated glomerular filtration rate calculated using the CKD-EPI equation. ANION GAP 16 10 - 20 mmol/L [facility] Blood 02/22/2021 10:5 5 AM EST 02/22/2021 10:59 AM EST Abraham Glynn MD LAB BLOOD BKR ORDERABLES Final Result Performing Organization Address [facility]/ZIP Co de Phone Number [address] [address] * (ABNORMAL) Lipid panel (02/22/2021 10:55 AM EST) HDL 39 mg/dL [facility] Comment: Interpretation <40 mg/dL: Low HDL cholesterol (major risk factor for CHD) Greater than or equal to 60 mg/dL: High HDL cholesterol ( negative risk factor for CHD) HDL - cholesterol is affected by a number of factors, e.g. smoking, excerise, hormones, sex and age. CHOLESTEROL 211 0 - 240 mg/dL [facility] TRIGLYCERIDES 201(H) 30 - 160 mg/dL [facility] LDL 132(H) 50 - 129 mg/dL [facility] Comment: LDL levels in terms of risk for coronary heart disease: <100 mg/dL: Optimal 100-129 mg/dL: Near or above optimal 130-159 mg/dL: Borderline high 160-189 mg/dL: High >190 mg/dL: Very High CARDIAC RISK RATIO 5.4(H) 3.4 - 5.0 C [facility] Blood 02/22/2021 10:5 5 AM EST 02/22/2021 10:59 AM EST Abraham Glynn MD LAB BLOOD BKR ORDERABLES Final Result Performing Organization Address [facility] Co de Phone Number [address] [address] from Last 3 Months or Most Recently Relevant to Health Maintenance Insurance [employer] PPO [employer] PPO [employer] PPO [employer] PPO [employer] PPO C[employer] PPO [employer] PPO [place], [place] C[employer] PPO C[employer] PPO Care Teams Identification Clerk Relationship Specialty Start Date End Date Renard, Abraham Joel MD [address] [place] [address] & [address] [place] [address] [email or web address] PCP - General Internal Medicine 07/10/17 Additional Source Comments The information contained in this document represents components of the legal health record. It is not the complete legal health record.[facility]
--- OUTSIDE RECORDS SUMMARY | 2025-03-14 18:16 | XMS_ITS | Encounter Summary ---
Author Organization [facility] Address [address] [address] Phone Care Team Providers Care Chemical Technician Name Role Phone Unknown, Unknown Primary Care Provider Abraham Galvan MD Primary Care Provider [phone] Encounter Details Date Type Department Care Team (Latest Contact Info) Description 03/05/2017 Transcribe Orders [address] [address] RenardAbraham MD [address] [place] [address] [address] & [address] [place] [address] [email or web address] Heart valve replaced (Primary Dx) Social [...] EST) PT 34.3(H) 10.2 - 12.9 sec [facility] INR 3.0(H) 0.9 - 1.1 [facility] Comment:Therapeutic range fo r oral Vitamin K antagonists: 2.0-3.5 Blood 03/05/2017 10:3 1 AM EST 03/05/2017 10:36 AM EST Abraham Glynn MD LAB BLOOD BKR ORDERABLES Final Result [facility] [address] [place] [address] documented in this encounter Visit Diagnoses Diagnosis [...] documented as of this encounter Care Teams Chemical Technician Relationship Specialty Start Date End Date Unknown, Unknown, MD PCP - General 03/05/17 07/09/17 Renard, Abraham Joel MD [address] [place] [address] [address] [place] [address] [email or web address] PCP - General Internal Medicine 07/10/17 documented as of this encounter Additional Source Comments The information contained in this document represents components of the legal health record. It is not the complete legal health record.[facility]
--- OUTSIDE RECORDS SUMMARY | 2025-03-14 18:16 | XMS_ITS | Encounter Summary ---
Author Organization [facility] Address [address] [facility] [address] [place] [address] Phone Care Team Providers Care Assistant Store Manager Name Role Phone Abraham Glynn MD Primary Care Provider [phone] Encounter Details Date Type Department Care Team (Late st Contact Info) Description 07/10/2017 Ancillary Orders [facility], X-Ray - [address] [address] Renard, Abraham Joel MD [address] [place] [address] [address] [place] [address] [email or web address] Cough Social History Tobacco Use Types [...] EDT) Anatomical Region Laterality Modality Chest Radiographic Christnie ging 07/10/2017 3:55 PM EDT Impressions 07/10/2017 [...] documented as of this encounter Care Teams Assistant Store Manager Relationship Specialty Start Date End Date Abraham Glynn MD [address] [place] [address] [address] [place] [address] [email or web address] PCP - General Internal Medicine 07/10/17 documented as of this encounter Additional Source Comments The information contained in this document represents components of the legal health record. It is not the complete legal health record.[facility]
--- OUTSIDE RECORDS SUMMARY | 2025-03-14 18:16 | XMS_ITS | Encounter Summary ---
Author Organization [facility] Address [address] [place] [address] [place] [address] Phone Care Team Providers Care Home Care Chaplain Name Role Phone Renard, Abraham Joel MD Primary Care Provider [phone] Encounter Details Date Type Department Care Team (Latest Contact Info) Description 10/29/2017 Transcribe Orders [facility] [address] [place] [address] Mikel Guidry MD Fever, unspecified fever cause [...] 5:12 PM EDT) C.DIFFICILE PCR Negative Negative [facility] C.DIFFICILE STRAIN PRESUMPTIVE NEGATIVE PRESUMPTIVE NEGATIVE [facility] Comment:Detection of 027/NAP 1/BI strains of C.difficile is presumptive and is solely for epidemiological purposes and is not intended to guide or monitor treatment of infections. Stool (Stool) 10/29/2017 5:1 2 PM EDT 10/29/2017 5:14 PM EDT us Mikel Guidry MD LAB BODY FLUIDS AND STOOL ORDER SOLEDAD Final Result Performing Organization Address City/[facility]/ZIP Co de Phone Number [facility] [address] [place] [address] * Giardia antigen screen (10/29/2017 5:12 PM EDT) ST GIARDIA ANTIGEN Negative Negative [facility] DPT OF LAB MED AND PAT+ Stool (Stool) 10/29/2017 5:1 2 PM EDT 10/29/2017 5:14 PM EDT Mikel Guidry MD LAB BODY FLUIDS AND STOOL ORDER SOLEDAD Final Result Performing Organization Address City/[facility]/ZIP Co de Phone Number [facility] DPT OF LAB MED AND PAT+ [address] [address] * Stool culture (10/29/2017 5:12 PM EDT) Specimen Source/ Description STOOL FRESH STOOL STOOL [facility] Special Requests None [facility] Culture/Test NO SALMONELLA, SHIGELLA OR CAMPYLOBACTER ISOLATED [facility] Report Status 11/01/2017 FINAL [facility] Stool (Stool) 10/29/2017 5:1 2 PM EDT 10/29/2017 5:13 PM EDT Mikel Guidry MD LAB MICROBIOLOGY CULTURE ORDERA BLES Final Result Performing Organization Address [facility]/ZIP Co de Phone Number [facility] [address] [place] [address] * Malaria/babesia exam (10/29/2017 12:24 PM EDT) Specimen Source/ Description WHOLE BLOOD [facility] Special Requests None [facility] MALARIA SMEAR No Malaria or Babesia observed [facility] Report Status 10/29/2017 FINAL [facility] Other (Whole blood) 10/29/2017 12:24 PM EDT 10/29/2017 12:28 PM EDT Mikel Guidry MD LAB BLOOD BKR ORDERABLES Final Result [facility] [address] [place] [address] * Babesia species PCR (10/29/2017 12:24 PM EDT) B.Microti PCR Negative Negative [facility] DPT OF LAB MED AND PAT+ B.Duncani PCR Negative Negative [facility] DPT OF LAB MED AND PAT+ B.Divergens/MO-1 PCR Negative Negative [facility] DPT OF LAB MED AND PAT+ Comment: (NOTE) ADDITIONAL INFORMATION This test was developed and its performance characteristics determined by [facility] in a manner consistent with CLIA requirements. This test has not been cleared or approved by the U.S. Food and Drug Administration. Blood 10/29/2017 12:2 4 PM EDT 10/29/2017 12:27 PM EDT us Mikel Guidry MD LAB BLOOD ORDERABLES Final Resu lt [facility] DPT OF LAB MED AND PAT+ [address] [place] [address] * Ehrlichia/anaplasma PCR (10/29/2017 12:24 PM EDT) ANAPLASMA PHAGOCYTO Negative Negative [facility] DPT OF LAB MED AND PAT+ EHRLICHIA CHAFFEENS Negative Negative [facility] DPT OF LAB MED AND PAT+ EHRL EWINGII/CANIS Negative Negative [facility] DPT OF LAB MED AND PAT+ EHRL MURIS-LIKE Negative Negative [facility] DPT OF LAB MED AND PAT+ Comment: (NOTE) ADDITIONAL INFORMATION This test was developed and its performance characteristics determined by [facility] in a manner consistent with CLIA requirements. This test has not been cleared or approved by the U.S. Food and Drug Administration. Blood 10/29/2017 12:2 4 PM EDT 10/29/2017 12:27 PM EDT Mikel Guidry MD LAB BLOOD ORDERABLES Final Resu lt [facility] DPT OF LAB MED AND PAT+ [address] [place] [address] * Lyme screen with reflex to Western blot, blood (10/29/2017 12:24 PM EDT) Lyme AB IgG Negative Negative [facility] Lyme AB IgM Negative Negative [facility] Blood 10/29/2017 12:2 4 PM EDT 10/29/2017 12:26 PM EDT Mikel Guidry MD LAB BLOOD BKR ORDERABLES Final Result Performing Organization Address [facility]/ZIP Co de Phone Number [address] [address] * Blood culture, routine (10/29/2017 12:24 PM EDT) Specimen Source/ Description BLOOD BLOOD [facility] Special Requests None [facility] Culture/Test NO GROWTH 5 DAYS [facility] Report Status 11/03/2017 FINAL [facility] Blood (Blood) 10/29/2017 12: 24 PM EDT 10/29/2017 12:27 PM EDT Mikel Guidry MD LAB MICROBIOLOGY CULTURE ORDERA BLES Final Result [address] [address] * Blood culture, routine (10/29/2017 12:24 PM EDT) Specimen Source/ Description BLOOD BLOOD [facility] Special Requests None [facility] Culture/Test NO GROWTH 5 DAYS [facility] Report Status 11/03/2017 FINAL [facility] Blood (Blood) 10/29/2017 12: 24 PM EDT 10/29/2017 12:26 PM EDT Mikel Guidry MD LAB MICROBIOLOGY CULTURE ORDERA BLES Final Result Performing Organization Address [facility]/ZIP Co de Phone Number [address] [address] * Sedimentation rate (ESR) (10/29/2017 12:24 PM EDT) Pathologist [facility] ESR 11 0 - 20 mm/h [facility] Blood 10/29/2017 12:2 4 PM EDT 10/29/2017 12:26 PM EDT Mikel Guidry MD LAB BLOOD BKR ORDERABLES Final Result Performing Organization Address [facility] de Phone Number [address] [address] * (ABNORMAL) C-Reactive Protein (10/29/2017 12:24 PM EDT) [facility] C REACTIVE PROTEIN 22.8(H) 0.0 - 4.0 mg/L [facility] Comment:New Reference Range and Measuring Units effective 08/27/17. Blood 10/29/2017 12:2 4 PM EDT 10/29/2017 12:26 PM EDT Mikel Guidry MD LAB BLOOD BKR ORDERABLES Final Result Performing Organization Address [facility] Co de Phone Number [address] [address] * (ABNORMAL) CBC and differential (10/29/2017 12:24 PM EDT) Pathologist [facility] WBC 5.73 3.40 - 11.20 K/uL [facility] RBC 5.18 4.50 - 5.50 M/uL [facility] HGB 15.3 13.0 - 17.0 g/dL [facility] HCT 44.1 40.0 - 51.0 % [facility] PLT 166 130 - 400 K/uL [facility] MCV 85.1 79.0 - 98.0 fL [facility] MCH 29.5 27.0 - 34.8 pg [facility] MCHC 34.7 31.5 - 36.0 g/dL [facility] RDW 13.0 10.8 - 14.6 % [facility] MPV 11.6 9.4 - 12.4 fl [facility] NRBC 0.00 /100 WBCs [facility] ABSOLUTE NRBC 0.00 K/uL [facility] DIFF METHOD Auto [facility] NEUTS 79.1(H) 45.30 - 77.70 % [facility] LYMPHS 11.3(L) 12.30 - 39.70 % [facility] MONOS 9.1 4.10 - 12.80 % [facility] EOS 0.0 0 - 7.2 % [facility] BASOS 0.3 0 - 2.80 % [facility] Granulocytes, immature (%) 0.2 0.0 - 0.9 % [facility] ABSOLUTE NEUTS 4.53 1.40 - 7.70 K/uL [facility] ABSOLUTE LYMPHS 0.65 0.60 - 3.20 K/uL [facility] ABSOLUTE MONOS 0.52 0.11 - 0.59 K/uL [facility] ABSOLUTE EOS 0.00(L) 0.01 - 0.50 K/uL [facility] ABSOLUTE BASOS 0.02 0.00 - 0.08 K/uL [facility] Granulocytes, immature 0.01 0.00 - 0.05 K/uL [facility] Blood 10/29/2017 12:2 4 PM EDT 10/29/2017 12:26 PM EDT us Mikel Guidry MD LAB BLOOD BKR ORDERABLES Final Result [facility] [address] [place] [address] * Comprehensive metabolic panel (10/29/2017 12:24 PM EDT) SODIUM 137 133 - 146 mmol/L [facility] POTASSIUM 4.0 3.3 - 5.1 mmol/L [facility] CHLORIDE 98 96 - 108 mmol/L [facility] CO2 26 21 - 35 mmol/L [facility] BUN 12 6 - 19 mg/dL [facility] CREATININE 1.00 0.5 - 1.5 mg/dL [facility] GLUCOSE 97 70 - 99 mg/dL [facility] ALBUMIN 4.0 3.9 - 4.8 g/dL [facility] TOTAL PROTEIN 7.3 6.5 - 8.0 g/dL [facility] CALCIUM 9.7 8.4 - 10.3 mg/dL [facility] ALKALINE PHOSPHATASE 61 39 - 117 U/L [facility] TOTAL BILIRUBIN 0.7 0.0 - 1.2 mg/dL [facility] AST 21 0 - 37 U/L [facility] ALT 16 0 - 40 U/L [facility] GLOBULIN 3.3 1 - 4.8 g/dL [facility] EGFR 86 >59 mL/min/1.7 3m2 [facility] Comment:If patient is black, multiply result by 1.159. Estimated glomerular filtration rate calculated using the CKD-EPI equation. ANION GAP 17 10 - 20 mmol/L [facility] Blood 10/29/2017 12:2 4 PM EDT 10/29/2017 12:26 PM EDT us Mikel Guidry MD LAB BLOOD BKR ORDERABLES Final Result Performing Organization Address City/State/[facility] Co de Phone Number [facility] [address] [place] [address] documented in this encounter Visit Diagnoses Diagnosis [...] documented as of this encounter Care Teams Home Care Chaplain Relationship Specialty Start Date End Date Renard, Abraham Joel MD [address] [place] [address] [address] [place] [address] [email or web address] PCP - General Internal Medicine 07/10/17 documented as of this encounter Additional Source Comments The information contained in this document represents components of the legal health record. It is not the complete legal health record.[facility]
--- OUTSIDE RECORDS SUMMARY | 2025-03-14 18:16 | XMS_ITS | Encounter Summary ---
Author Organization [facility] Address [address] [place] [address] Phone Care Team Providers Care Paint Stock Clerk Name Role Phone Renard, Abraham Joel MD Primary Care Provider [phone] Encounter Details Date Type Department Care Team (Late st Contact Info) Description 03/11/2020 Procedure Pass [facility], Ct Scan - [facility] [address] [place] [address] Social History Tobacco Use Types Packs/Day Years [...] 03/11/2020 7:00 PM Juan Waterman RN * Edelstein Suicide Severity Rating Scale (Screener/Recent Self-Report) Question [...] documented as of this encounter Care Teams Paint Stock Clerk Relationship Specialty Start Date End Date RenardAbraham bauer MD [address] [place] [address] [address] [place] [address] [email or web address] PCP - General Internal Medicine 07/10/17 documented as of this encounter Additional Source Comments The information contained in this document represents components of the legal health record. It is not the complete legal health record.[facility]
--- OUTSIDE RECORDS SUMMARY | 2025-03-14 18:17 | XMS_ITS | Encounter Summary ---
Author Organization [facility] Address [address] [facility] [address] [place] [address] Phone Care Team Providers Care Sock Folder Name Role Phone Abraham Glynn MD Primary Care Provider [phone] Encounter Details Date Type Department Care Team (Latest Contact Info) Description 01/21/2019 Transcribe Orders [address] [address] RenardAbraham bauer MD [address] [facility] [address] [place] [address] [email or web address] Routine general medical examination at a [...] EDT) WBC 3.43 3.40 - 11.20 K/uL [facility] RBC 5.13 4.50 - 5.50 M/uL [facility] HGB 15.0 13.0 - 17.0 g/dL [facility] HCT 43.4 40.0 - 51.0 % [facility] PLT 204 130 - 400 K/uL [facility] MCV 84.6 79.0 - 98.0 fL [facility] MCH 29.2 27.0 - 34.8 pg [facility] MCHC 34.6 31.5 - 36.0 g/dL [facility] RDW 12.8 10.8 - 14.6 % [facility] MPV 11.3 9.4 - 12.4 fl [facility] NRBC 0.00 0.00 /100 WBCs [facility] ABSOLUTE NRBC 0.00 0.00 K/uL [facility] DIFF METHOD Auto [facility] NEUTS 43.6(L) 45.30 - 77.70 % [facility] LYMPHS 42.6(H) 12.30 - 39.70 % [facility] MONOS 11.1 4.10 - 12.80 % [facility] EOS 0.9 0 - 7.2 % [facility] BASOS 1.2 0 - 2.80 % [facility] Granulocytes, immature (%) 0.6 0.0 - 0.9 % [facility] ABSOLUTE NEUTS 1.50 1.40 - 7.70 K/uL [facility] ABSOLUTE LYMPHS 1.46 0.60 - 3.20 K/uL [facility] ABSOLUTE MONOS 0.38 0.11 - 0.59 K/uL [facility] ABSOLUTE EOS 0.03 0.01 - 0.50 K/uL [facility] ABSOLUTE BASOS 0.04 0.00 - 0.08 K/uL [facility] Granulocytes, immature 0.02 0.00 - 0.05 K/uL [facility] Blood 01/21/2019 7:40 AM EDT 01/21/2019 8:07 AM EDT Abraham Glynn MD LAB BLOOD BKR ORDERABLES Final Result [facility] [address] [place] [address] * Basic metabolic panel (01/21/2019 7:40 AM EDT) SODIUM 140 133 - 146 mmol/L [facility] CHLORIDE 104 96 - 108 mmol/L [facility] POTASSIUM 4.6 3.3 - 5.1 mmol/L [facility] CO2 28 21 - 35 mmol/L [facility] BUN 17 6 - 19 mg/dL [facility] CREATININE 0.90 0.5 - 1.5 mg/dL [facility] GLUCOSE 94 70 - 99 mg/dL [facility] CALCIUM 9.7 8.4 - 10.3 mg/dL [facility] EGFR 96 >59 mL/min/1.7 3m2 [facility] Comment:If patient is black, multiply result by 1.159. Estimated glomerular filtration rate calculated using the CKD-EPI equation. ANION GAP 13 10 - 20 mmol/L [facility] Blood 01/21/2019 7:40 AM EDT 01/21/2019 8:07 AM EDT Abraham Glynn MD LAB BLOOD BKR ORDERABLES Final Result Performing Organization Address City/State/[facility] Co de Phone Number [facility] [address] [place] [address] documented in this encounter Visit Diagnoses Diagnosis [...] documented as of this encounter Care Teams Sock Folder Relationship Specialty Start Date End Date Abraham Glynn MD [address] [place] [address] [address] [place] [address] [email or web address] PCP - General Internal Medicine 07/10/17 documented as of this encounter Additional Source Comments The information contained in this document represents components of the legal health record. It is not the complete legal health record.[facility]
--- OUTSIDE RECORDS SUMMARY | 2025-03-14 18:17 | XMS_ITS | Encounter Summary ---
Author Organization [facility] Address [address] [place] [address] Phone Care Team Providers Care Gold Beater Name Role Phone Unknown, Unknown Primary Care Provider Abraham Galvan MD Primary Care Provider [phone] Encounter Details Date Type Department Care Team (Latest Contact Info) Description 05/13/2017 Transcribe Orders [address] [address] Abraham Glynn MD [address] [place] [address] [address] [place] [address] [email or web address] Heart valve replaced (Primary Dx) [...] documented as of this encounter Care Teams Gold Beater Relationship Specialty Start Date End Date Unknown, Unknown, MD PCP - General 03/05/17 07/09/17 Renard, Abraham Joel MD [address] [address] & [address] [place] [address] [email or web address] PCP - General Internal Medicine 07/10/17 documented as of this encounter Additional Source Comments The information contained in this document represents components of the legal health record. It is not the complete legal health record.[facility]
--- OUTSIDE RECORDS SUMMARY | 2025-03-14 18:17 | XMS_ITS | Encounter Summary ---
Author Organization [facility] Address [address] [place] [address] [place] [address] Phone Care Team Providers Care Excellence Consultant Name Role Phone Unknown, Unknown Primary Care Provider Abraham Galvan MD Primary Care Provider [phone] Encounter Details Date Type Department Care Team (Latest Contact Info) Description 03/05/2017 Transcribe Orders [address] [address] Harmeet Muñoz MD [address] [place] [address] Routine general medical examination at a health [...] a health care facility BASIC METABOLIC PANEL (BMP) Routine 03/05/2017 10:31 AM EST Routine general medical examination at a health care facility documented in this encounter Results * (ABNORMAL) PT-INR (03/05/2017 10:31 AM EST) PT 34.3(H) 10.2 - 12.9 sec [facility] INR 3.0(H) 0.9 - 1.1 [facility] Comment:Therapeutic range fo r oral Vitamin K antagonists: 2.0-3.5 Blood 03/05/2017 10:3 1 AM EST 03/05/2017 10:36 AM EST Abraham Glynn MD LAB BLOOD BKR ORDERABLES Final Result [address] [address] * Magnesium (03/05/2017 10:31 AM EST) Pathologist [facility] MAGNESIUM 2.2 1.6 - 2.6 mg/dL [facility] Blood 03/05/2017 10:3 1 AM EST 03/05/2017 10:36 AM EST Harmeet Muñoz MD LAB BLOOD BKR ORDERABLES F inal Result [address] [address] * Basic metabolic panel (03/05/2017 10:31 AM EST) Pathologist [facility] SODIUM 142 133 - 146 mmol/L [facility] CHLORIDE 103 96 - 108 mmol/L [facility] POTASSIUM 4.5 3.3 - 5.1 mmol/L [facility] CO2 29 21 - 35 mmol/L [facility] BUN 16 6 - 19 mg/dL [facility] CREATININE 0.80 0.5 - 1.5 mg/dL [facility] GLUCOSE 82 70 - 99 mg/dL [facility] CALCIUM 9.8 8.4 - 10.3 mg/dL [facility] EGFR >60 60 - 1000 mL/min/1.7 3m2 [facility] Comment:Abnormal if <60. If patient is -Hungarian, multiply the result by 1.21. ANION GAP 15 10 - 20 mmol/L [facility] Blood 03/05/2017 10:3 1 AM EST 03/05/2017 10:36 AM EST us Harmeet Muñoz MD LAB BLOOD BKR ORDERABLES F inal Result [facility] [address] [place] [address] documented in this encounter Visit Diagnoses Diagnosis [...] documented as of this encounter Care Teams Excellence Consultant Relationship Specialty Start Date End Date Unknown, Unknown, MD PCP - General 03/05/17 07/09/17 Renard, Abraham Joel MD [address] [place] [address] [address] [place] [address] [email or web address] PCP - General Internal Medicine 07/10/17 documented as of this encounter Additional Source Comments The information contained in this document represents components of the legal health record. It is not the complete legal health record.[facility]
--- OUTSIDE RECORDS SUMMARY | 2025-03-14 18:17 | XMS_ITS | Encounter Summary ---
Author Organization [facility] Address [address] [place] [address] Phone Care Team Providers Care Student Counselor Name Role Phone Renard, Abraham Joel MD Primary Care Provider [phone] Encounter Details Date Type Department Care Team (Latest Contact Info) Description 11/24/2018 Transcribe Orders Virtual Department [address] [place] [address] Eliazar Hall MD [address] [place] [address], [address] [place] [address] [email or web address] TIA (transient ischemic attack) [...] documented as of this encounter Care Teams Student Counselor Relationship Specialty Start Date End Date Renard, Abraham Joel MD [address] [place] [address] & [address] [place] [address] [email or web address] PCP - General Internal Medicine 07/10/17 documented as of this encounter Additional Source Comments The information contained in this document represents components of the legal health record. It is not the complete legal health record.[facility]
--- OUTSIDE RECORDS SUMMARY | 2025-03-14 18:17 | XMS_ITS | Encounter Summary ---
Author Organization [facility] Address [address] [place] [phone] Phone Care Team Providers Care Ostomy Care Nurse Name Role Phone Unknown, Unknown Primary Care Provider Abraham Galvan MD Primary Care Provider [phone] Encounter Details Date Type Department Care Team (Latest Contact Info) Description 06/16/2017 Transcribe Orders [address] [address] RenardAbraham MD [address] [place] [address] [address] [place] [id number] [email or web address] Routine general medical examination at a health [...] VALPROIC ACID <2.8(L) 50.0 - 100.0 ug/mL [facility] Blood 06/16/2017 8:16 AM EST 06/16/2017 8:50 AM EST Abraham Gylnn MD LAB BLOOD BKR ORDERABLES Final Result Performing Organization Address City/[facility]/ZIP Co de Phone Number [address] [phone] * PSA (screening) (06/16/2017 8:16 AM EST) PSA 0.89 0 - 4.00 ng/mL [facility] Blood 06/16/2017 8:16 AM EST 06/16/2017 8:51 AM EST Abraham Glynn MD LAB BLOOD BKR ORDERABLES Final Result Performing Organization Address [facility] Co de Phone Number [address] [address] * CBC and differential (06/16/2017 8:16 AM EST) WBC 3.50 3.40 - 11.20 K/uL [facility] RBC 5.13 4.50 - 5.50 M/uL [facility] HGB 15.2 13.0 - 17.0 g/dL [facility] HCT 44.2 40.0 - 51.0 % [facility] PLT 183 130 - 400 K/uL [facility] MCV 86.2 79.0 - 98.0 fL [facility] MCH 29.6 27.0 - 34.8 pg [facility] MCHC 34.4 31.5 - 36.0 g/dL [facility] RDW 13.2 10.8 - 14.6 % [facility] MPV 11.7 9.4 - 12.4 fl [facility] NRBC 0.00 /100 WBCs [facility] ABSOLUTE NRBC 0.00 K/uL [facility] DIFF METHOD Auto [facility] NEUTS 50.9 45.30 - 77.70 % [facility] LYMPHS 36.9 12.30 - 39.70 % [facility] MONOS 9.7 4.10 - 12.80 % [facility] EOS 1.1 0 - 7.2 % [facility] BASOS 1.4 0 - 2.80 % [facility] Granulocytes, immature (%) 0.0 0.0 - 0.9 % [facility] ABSOLUTE NEUTS 1.78 1.40 - 7.70 K/uL [facility] ABSOLUTE LYMPHS 1.29 0.60 - 3.20 K/uL [facility] ABSOLUTE MONOS 0.34 0.11 - 0.59 K/uL [facility] ABSOLUTE EOS 0.04 0.01 - 0.50 K/uL [facility] ABSOLUTE BASOS 0.05 0.00 - 0.08 K/uL [facility] Granulocytes, immature 0.00 0.00 - 0.05 K/uL [facility] Blood 06/16/2017 8:16 AM EST 06/16/2017 8:50 AM EST Abraham Glynn MD LAB BLOOD BKR ORDERABLES Final Result Performing Organization Address [facility] Co de Phone Number [address] [address] * TSH with reflex (06/16/2017 8:16 AM EST) TSH 2.80 0.27 - 4.20 uIU/mL [facility] Blood 06/16/2017 8:16 AM EST 06/16/2017 8:50 AM EST Abraham Glynn MD LAB BLOOD BKR ORDERABLES Final Result Performing Organization Address City/[facility] Co de Phone Number [address] [address] * (ABNORMAL) Lipid panel (06/16/2017 8:16 AM EST) HDL 40 mg/dL [facility] Comment: Interpretation: Risk Level Males Decreased >45 mg/dL Average 40-45 mg/dL Increased <40 mg/dL CHOLESTEROL 209 0 - 240 mg/dL [facility] TRIGLYCERIDES 157 30 - 160 mg/dL [facility] LDL 138(H) 50 - 129 mg/dL [facility] Comment: LDL levels in terms of risk for coronary heart disease: <100 mg/dL: Optimal 100-129 mg/dL: Near or above optimal 130-159 mg/dL: Borderline high 160-189 mg/dL: High >190 mg/dL: Very High CARDIAC RISK RATIO 5.2(H) 3.4 - 5.0 C [facility] Blood 06/16/2017 8:16 AM EST 06/16/2017 8:50 AM EST us Abraham Glynn MD LAB BLOOD BKR ORDERABLES Final Result [facility] [address] [place] [address] * Comprehensive metabolic panel (06/16/2017 8:16 AM EST) SODIUM 142 133 - 146 mmol/L [facility] POTASSIUM 4.3 3.3 - 5.1 mmol/L [facility] CHLORIDE 102 96 - 108 mmol/L [facility] CO2 27 21 - 35 mmol/L [facility] BUN 17 6 - 19 mg/dL [facility] CREATININE 0.90 0.5 - 1.5 mg/dL [facility] GLUCOSE 90 70 - 99 mg/dL [facility] ALBUMIN 4.2 3.9 - 4.8 g/dL [facility] TOTAL PROTEIN 7.4 6.5 - 8.0 g/dL [facility] CALCIUM 9.4 8.4 - 10.3 mg/dL [facility] ALKALINE PHOSPHATASE 58 39 - 117 U/L [facility] TOTAL BILIRUBIN 0.9 0.0 - 1.2 mg/dL [facility] AST 30 0 - 37 U/L [facility] ALT 31 0 - 40 U/L [facility] GLOBULIN 3.2 1 - 4.8 g/dL [facility] EGFR >60 >60 mL/min/1.7 3m2 [facility] Comment:Abnormal if <60. If patient is -[place], multiply the result by 1.21. ANION GAP 17 10 - 20 mmol/L [facility] Blood 06/16/2017 8:16 AM EST 06/16/2017 8:50 AM EST Abraham Glynn MD LAB BLOOD BKR ORDERABLES Final Result [address] [address] documented in this encounter Visit Diagnoses Diagnosis [...] documented as of this encounter Care Teams Ostomy Care Nurse Relationship Specialty Start Date End Date Unknown, Unknown, MD PCP - General 03/05/17 07/09/17 Renard, Abraham Joel MD [address] [place] [address] [address] [place] [address] [email or web address] PCP - General Internal Medicine 07/10/17 documented as of this encounter Additional Source Comments The information contained in this document represents components of the legal health record. It is not the complete legal health record.[facility]
== END 2025-03-14 15:22 | disposition home or self-care (01) ==
LOC: HO.ACS 15:09
PROVIDERS: PCP Internal Medicine; Visit Provider Internal Medicine Medical Oncology
DX: Z79.01 Long term (current) use of anticoagulants (principal)

== ENCOUNTER → 2025-03-14 15:09 | Outpatient (BNVA) | payer BC, SELFPAY | PROVIDERS: PCP Internal Medicine; Visit Provider Internal Medicine Medical Oncology | DX: Z95.2 Presence of prosthetic heart valve (principal); Z79.01 Long term (current) use of anticoagulants; Z51.81 Encounter for therapeutic drug level monitoring | CPT/HCPCS: 85610; 99211 ==